=== PATIENT | male | born 1940 | race Caucasian/White ===

== ENCOUNTER 2019-05-28 12:07 | Outpatient (CLI) | payer MEDICARE, SELFPAY ==
--- NOTE | 2019-05-28 | XR_ITS ---
WS: [id number] CHEST 2 VIEWS HISTORY: IRREGULAR HEARTBEAT COMPARISON: None available. Lungs: Mild elevation of the RIGHT hemidiaphragm. There is minimal subsegmental atelectasis at the li ngula. Cardiac size: 2. Partially obscured by the atelectasis in the lingula. Mediastinum/Aorta: Mildly ectatic aorta. Bones: Normal. XR/XR chest 2V* [id number] IMPRESSION: 1. Lingular atelectasis. 2. Slight elevation RIGHT hemidiaphragm. No pneumonia.
== END 2019-05-28 12:08 | disposition home or self-care (01) ==
LOC: RADOUTREAD 05-29 07:34
PROVIDERS: Family Provider Family Medicine; Visit Provider Physician Assistant
DX: Z01.89 Encounter for other specified special examinations (principal)

== ENCOUNTER 2019-05-29 15:49 | Inpatient (IN) | payer MEDICARE, SELFPAY ==
--- NOTE | 2019-05-29 15:50 | CT_ITS ---
WS: [id number] CT HEAD TECHNIQUE: Noncontrast CT of the head obtained from the skullbase to the vertex. CLINICAL INFORMATION: Altered Mental Status COMPARISON: None. DLP: [address] scans at [facility] use at least one of these dose optimization techniques: automat ed exposure control; mA and/or kV adjustment per patient size (includes targeted exams where dose is matched to clinical indication); or iterative reconstruction. FINDINGS: No evidence of intracranial hemorrhage or mass effect. Ventricular system and basal cisterns are arellano nt. Mild small vessel changes with moderate parenchymal volume loss. Incidental right choroidal fissu re cyst. Chronic lacunar infarcts in the left basal ganglia. No extra-axial fluid collections. No jermaine dence of mass or mass effect. Normal kang-white differentiation. Paranasal sinuses and mastoid air cells are well aerated. .Normal visualized soft tissues. Notified Iban Ball DO at 05/29/2019 4:[address]/CT head wo con* [id number] IMPRESSION: 1. No evidence of intracranial hemorrhage or mass effect. 2. Mild small vessel changes with moderate parenchymal volume loss. 3. No acute intracranial findings.
--- NOTE | 2019-05-29 15:50 | ED_ITS ---
Entered by Aurelia Reilly, acting as scribe for Travis Laughlin MD HPI - Altered Mental Status General: Chief Complaint: Altered Mental Status Stated Complaint: AMS Time Seen by Provider: 05/29/19 15:51 History of Present Illness: HPI narrative: 78 yo male presents with altered mental status. pt has had this for 2 days. Pt had slurred speech off and on for 2 days. Pt states that he feels unusual for him. Per EMS pt is hypertensive. denies being sick in any other way. Pt just had a check up on Saturday at [facility]. complaint: altered mental status Onset (ago): day(s) (2) Severity: mild Consistency of symptoms: Waxing and Waning Associated symptoms: Deny depression Review of Systems Const: Denies: fever, chills, body aches or change in appetite Eyes: Denies: blurry vision or eye discomfort ENMT: Denies: throat pain or dental pain Card: Denies: chest pain Resp: Denies: shortness of breath GI: Denies: abdominal pain, nausea, vomiting or diarrhea : Denies: painful urination Musc: Denies: neck pain or back pain Skin/Breast: Denies: rash Neuro: Reports: weakness in extremities and slurred speech Psych: Denies: depression Martinez/Lymph: Denies: easy bruising All/Imm: Denies: hives PFSH ED PFSH: Medical History (Updated 05/29/19 @ 17:43 by Travis Laughlin MD) Cancer Gout Surgical History (Updated 05/29/19 @ 15:55 by Aurelia Reilly) H/O prostatectomy Hx of transurethral resection of prostate Social History Smoking and tobacco status: former smoker Physical Exam Const: COMMON NORMALS: no apparent distress, oriented x3 and healthy appearing HENMT: COMMON NORMALS: normocephalic and head/scalp atraumatic HEAD & SCALP: normocephalic and atraumatic Eye: COMMON NORMALS: PERRL and EOMs intact bilaterally PUPIL: Yes PERRL Neck/C-Spine: COMMON NORMALS: full ROM and supple Chest: COMMONS NORMALS: inspection of chest normal and palpation of chest normal Resp: COMMON NORMALS: normal respiratory effort, no retractions, no use of accessory muscles and clear to auscultation bilaterally AUSCULTATION: clear to auscultation bilaterally Cardio: COMMON NORMALS: regular rate, regular rhythm and no murmurs RATE: regular rate RHYTHM: regular rhythm GI: COMMON NORMALS: normal to inspection, nondistended, normoactive bowel sounds, soft to palpation, non-tender and no masses PALPATION: Yes soft Extremity: COMMON NORMALS: normal to inspection and full ROM Neuro: COMMON NORMALS: oriented x3, moves all extremities and no focal motor deficits Psych: COMMON NORMALS: mental status grossly normal, thought process normal and cooperative THOUGHT PROCESS: normal thought process Skin: COMMON NORMALS: no rashes or lesions noted and no wounds GENERAL SKIN EXAM: no rashes or lesions noted Course Vital Signs: Vital signs: Vital Signs Temperature 98.0 F 05/29/19 15:51 Pulse Rate 55 L 05/29/19 15:51 Respiratory Rate 16 05/29/19 15:51 Blood Pressure 184/98 05/29/19 15:51 Pulse Oximetry 97 05/29/19 16:03 MDM - Altered Mental Status MDM Narrative: Medical decision making narrative: Patient presents here with TIA-like symptoms. He has had slurred speech along with weakness that is been intermittent for the last 2 to 3 days. Patient is currently symptom-free and is not a TPA candidate. I spoke to hospitalist and will admit for observation. Lab Data: Labs: Lab Results 05/29/19 05/29/19 05/29/19 Range/Units 16:25 16:25 16:25 WBC 9.2 (4.0-10.0) 10^3/ uL RBC 5.09 (4.1-5.3) 10^6/u L Hgb 15.2 (11.7-16.6) g/dL Hct 47.2 (42.0-52.0) % MCV 92.7 (80-94) fL MCH 29.9 (28.0-34.0) pg MCHC 32.2 (30.0-36.0) g/dL RDW 12.2 (12.1-15.1) % Plt Count 307 (130-400) 10^3/c mm MPV 9.4 (7.4-10.4) fL Neut % (Auto) 73.3 % Lymph % (Auto) 13.8 % Meade % (Auto) 9.7 % Eos % (Auto) 2.1 % Baso % (Auto) 0.7 % Neut # (Auto) 6.8 (1.8-7.7) 10^3/u L Lymph # (Auto) 1.3 (0.8-4.8) 10^3/u L Meade # (Auto) 0.9 (0.2-0.9) 10^3/u L Eos # (Auto) 0.2 (0.0-0.8) 10^3/u L Baso # (Auto) 0.1 (0.0-0.1) 10^3/u L Nucleated RBC % (a uto) 0 % Nucleated RBCs # 0.0 /100WBC PT 13.90 H (10.5-13.3) SECO NDS INR 1.04 (0.8-1.2) Sodium 137 (136-145) mmol/L Potassium 4.3 (3.5-5.1) mmol/L Chloride 100 (98-107) mmol/L Carbon Dioxide 27 (22-29) mmol/L Anion Gap 14.3 (5-19) BUN 18 (8-23) mg/dL Creatinine 1.2 (0.7-1.2) mg/dL Glucose 108 (65-115) mg/dL Calcium 9.8 (8.5-10.5) mg/dL Total Bilirubin 0.3 (0.15-1.2) mg/dL AST 27 (0-40) U/L ALT 40 (0-41) U/L Alkaline Phosphata se 97 (40-130) IU/L Ammonia (16-60) umol/L Troponin T Baselin e (0-15) ng/mL Total Protein 6.4 L (6.6-8.7) g/dL Albumin 4.2 (3.5-5.2) g/dL Globulin 2.2 (1.3-4.6) g/dL TSH 3.85 (0.27-4.20) uIU/ mL Urine Color (Yellow) Urine Appearance (CLEAR) Urine pH (5-7) Ur Specific Gravit y (1.005-1.030) Urine Protein (Negative) Urine Glucose (UA) (Normal) Urine Ketones (Negative) Urine Blood (Negative) Urine Nitrate (Negative) Urine Bilirubin (NEGATIVE) Urine Urobilinogen (Negative) mg/dL Ur Leukocyte Darling ase (Negative) Urine RBC (0-2) /hpf Urine WBC (0-5) /hpf Ur Squamous Epith Cells (0-5) Urine Bacteria (NONE) 05/29/19 05/29/19 05/29/19 Range/Units 16:25 16:25 17:04 WBC (4.0-10.0) 10^3/ uL RBC (4.1-5.3) 10^6/u L Hgb (11.7-16.6) g/dL Hct (42.0-52.0) % MCV (80-94) fL MCH (28.0-34.0) pg MCHC (30.0-36.0) g/dL RDW (12.1-15.1) % Plt Count (130-400) 10^3/c mm MPV (7.4-10.4) fL Neut % (Auto) % Lymph % (Auto) % Meade % (Auto) % Eos % (Auto) % Baso % (Auto) % Neut # (Auto) (1.8-7.7) 10^3/u L Lymph # (Auto) (0.8-4.8) 10^3/u L Meade # (Auto) (0.2-0.9) 10^3/u L Eos # (Auto) (0.0-0.8) 10^3/u L Baso # (Auto) (0.0-0.1) 10^3/u L Nucleated RBC % (a uto) % Nucleated RBCs # /100WBC PT (10.5-13.3) SECO NDS INR (0.8-1.2) Sodium (136-145) mmol/L Potassium (3.5-5.1) mmol/L Chloride (98-107) mmol/L Carbon Dioxide (22-29) mmol/L Anion Gap (5-19) BUN (8-23) mg/dL Creatinine (0.7-1.2) mg/dL Glucose (65-115) mg/dL Calcium (8.5-10.5) mg/dL Total Bilirubin (0.15-1.2) mg/dL AST (0-40) U/L ALT (0-41) U/L Alkaline Phosphata se (40-130) IU/L Ammonia 16 (16-60) umol/L Troponin T Baselin e 9 (0-15) ng/mL Total Protein (6.6-8.7) g/dL Albumin (3.5-5.2) g/dL Globulin (1.3-4.6) g/dL TSH (0.27-4.20) uIU/ mL Urine Color Yellow (Yellow) Urine Appearance Clear (CLEAR) Urine pH 6 (5-7) Ur Specific Gravit y 1.015 (1.005-1.030) Urine Protein Neg (Negative) Urine Glucose (UA) Norm (Normal) Urine Ketones Negative (Negative) Urine Blood Trace H (Negative) Urine Nitrate Negative (Negative) Urine Bilirubin Neg (NEGATIVE) Urine Urobilinogen Norm (Negative) mg/dL Ur Leukocyte Darling ase Negative (Negative) Urine RBC 0-4 H (0-2) /hpf Urine WBC None (0-5) /hpf Ur Squamous Epith Cells 0-4 H (0-5) Urine Bacteria Trace (NONE) Imaging Data^: CXR: Attestation: I personally reviewed and interpreted this imaging study as follows: My impression: no acute abnormality CT Head: Radiologist's impression: Ordering Provider/Ordering MD: Iban Ball DO Date of Service: 05/29/19 Procedure(s): CT head wo con* [id number] Accession Number(s): [id number] Report Number: [id number] WS: [id number] CT HEAD TECHNIQUE: Noncontrast CT of the head obtained from the skullbase to the vertex. CLINICAL INFORMATION: Altered Mental Status COMPARISON: None. DLP: [address] scans at [facility] use at least one of these dose optimization techniques: automated exposure control; mA and/or kV adjustment per patient size (includes targeted exams where dose is matched to clinical indication); or iterative reconstruction. FINDINGS: No evidence of intracranial hemorrhage or mass effect. Ventricular system and basal cisterns are patent. Mild small vessel changes with moderate parenchymal volume loss. Incidental right choroidal fissure cyst. Chronic lacunar infarcts in the left basal ganglia. No extra-axial fluid collections. No evidence of mass or mass effect. Normal kang-white differentiation. Paranasal sinuses and mastoid air cells are well aerated. .Normal visualized soft tissues. Notified Iban Ball DO at 05/29/2019 4:[address]/CT head wo con* [id number] IMPRESSION: 1. No evidence of intracranial hemorrhage or mass effect. 2. Mild small vessel changes with moderate parenchymal volume loss. 3. No acute intracranial findings. EKG Data^: EKG 1: EKG interpretation date: 05/29/19 EKG interpretation time: 17:40 Interpretation: sinus martina hr [address] or t wave abnormalities qrs 90 qtc 389 Discharge Plan Discharge Patient Disposition: Admitted As Inpatient Clinical Impression: TIA (transient ischemic attack) Condition: Stable Referrals: Iban Ball DO [Family Provider] - Cristina Vann PA [Primary Care Provider] - Coding Level of Care Code ED Residence Counselor for Chg Fwd Exam Comprehensive The documentation recorded by the Tommie briceno Kialy, accurately reflects the service I personally performed and the decisions made by Truman dockery Korby, MD May 29, 2019 15:49
[2019-05-29 15:51] VITALS: BP 184/98; PULSE 55; RESP 16; TEMP 36.7; O2SAT 97; BMI 29.0
--- NOTE | 2019-05-29 15:58 | XR_ITS ---
WS: [id number] XR chest 1V portable [id number] REASON FOR EXAM: cp FINDINGS: Borderline cardiomegaly is noted. There is degenerative spurring off the apophyseal joints throughout the thoracic spine. No rib fractures are identified. The lung brown are well aerated. No pneumonia, pleural effusion, pulmonary edema, or pneumothorax. The hilum and apices are normal. No other osseous abnormalities were seen. XR/XR chest 1V portable [id number] IMPRESSION: Negative chest for active cardiopulmonary changes
--- NOTE | 2019-05-29 15:59 | ECG_ITS ---
Measurements Intervals [place] Rate: 50 P: 35 NE: 179 QRS: 67 QRSD: 90 T: 67 QT: 414 QTc: 381 SINUS BRADYCARDIA LOW QRS VOLTAGE IN PRECORDIAL LEADS [QRS DEFLECTION < 1.0 mV IN CHEST LEADS] No previous ECG available for comparison Electronically Signed On 05-30-2019 14:09:38 COLLOID MILL OPERATOR by Gladys Foley M.D. [id number] f
[2019-05-29 16:03] VITALS: O2SAT 97
[2019-05-29 16:31] LABS: Basophils # 0.1 10^3/uL (0.0-0.1); Basophils % 0.7 %; Eosinophils # 0.2 10^3/uL (0.0-0.8); Eosinophils % 2.1 %; Hematocrit 47.2 % (42.0-52.0); Hemoglobin 15.2 g/dL (11.7-16.6); Lymphocytes # 1.3 10^3/uL (0.8-4.8); Lymphocytes % 13.8 %; Mean Corpuscular HGB Conc 32.2 g/dL (30.0-36.0); Mean Corpuscular Hemoglobin 29.9 pg (28.0-34.0); Mean Corpuscular Volume 92.7 fL (80-94); Mean Platelet Volume 9.4 fL (7.4-10.4); Monocytes # 0.9 10^3/uL (0.2-0.9); Monocytes % 9.7 %; Neutrophils # 6.8 10^3/uL (1.8-7.7); Neutrophils % 73.3 %; Nucleated Red Blood Cells % 0 %; Platelet Count 307 10^3/cmm (130-400); Red Blood Count 5.09 10^6/uL (4.1-5.3); Red Cell Distribution Width 12.2 % (12.1-15.1); White Blood Count 9.2 10^3/uL (4.0-10.0)
[2019-05-29 16:41] LABS: INR 1.04 (0.8-1.2)
[2019-05-29 16:45] LABS: Ammonia 16 umol/L (16-60)
[2019-05-29 16:55] LABS: Troponin(5th) Baseline 9 ng/mL (0-15)
[2019-05-29 17:03] LABS: Alanine Aminotransferase 40 U/L (0-41); Albumin Level 4.2 g/dL (3.5-5.2); Alkaline Phosphatase 97 IU/L (40-130); Anion Gap 14.3 (5-19); Aspartate Amino Transferase 27 U/L (0-40); Blood Urea Nitrogen 18 mg/dL (8-23); Calcium 9.8 mg/dL (8.5-10.5); Carbon Dioxide 27 mmol/L (22-29); Chloride 100 mmol/L (98-107); Globulin 2.2 g/dL (1.3-4.6); Glucose 108 mg/dL (65-115); Potassium 4.3 mmol/L (3.5-5.1); Sodium 137 mmol/L (136-145); Thyroid Stimulating Hormone 3.85 uIU/mL (0.27-4.20); Total Bilirubin 0.3 mg/dL (0.15-1.2); Total Protein 6.4 g/dL (6.6-8.7)
[2019-05-29] MEDS: sodium chloride 0.9% 1,000 ML 999 ML IV (17:03)
[2019-05-29 17:24] LABS: Add Urine Microscopic? YES; Bilirubin Urine Neg (NEGATIVE); Blood Urine Trace (Negative); Glucose Urine UA Norm (Normal); Ketones Urine Negative (Negative); Leukocyte Esterase Urine Negative (Negative); Nitrate Urine Negative (Negative); Protein Urine Neg (Negative); Specific Gravity, Urine 1.015 (1.005-1.030); Urine Appearance Clear (CLEAR); Urine Color Yellow (Yellow); Urobilinogen Urine Norm (Negative); pH Urine 6 (5-7)
--- NOTE | 2019-05-29 17:24 | ECG_ITS ---
Measurements Intervals [place] Rate: 55 P: 41 NE: 192 QRS: 66 QRSD: 86 T: 67 QT: 390 QTc: 374 SINUS BRADYCARDIA LOW QRS VOLTAGE IN PRECORDIAL LEADS [QRS DEFLECTION < 1.0 mV IN CHEST LEADS] SEPTAL MYOCARDIAL INFARCTION , PROBABLY OLD [40+ ms Q WAVE IN V1/V2] No previous ECG available for comparison Electronically Signed On 05-30-2019 14:09:25 PLYWOOD FACTORY WORKER by Gladys Foley M.D. [id number] f
[2019-05-29 17:29] LABS: Add Urine Culture? No; Bacteria Urine TRACE; RBC Urine 0-4 /hpf (0-2); Squamous Epithelial Cell Urine 0-4 (0-5)
[2019-05-29] MEDS: aspirin 81 mg Chew Tablet PO (17:40)
--- NOTE | 2019-05-29 18:14 | PC.NURSE ---
RN UNAVAILABLE FOR REPORT, NURSE TO CALL BACK.
[2019-05-29 18:33] VITALS: BP 170/87; PULSE 54; RESP 14; O2SAT 99
--- NOTE | 2019-05-29 18:44 | P.HP_ITS ---
Providers/Chief Complaint Admitting Physician: Georgie Pretty MD Primary Care Provider: Cristina Vann Chief Complaint: AMS History of Present Illness Josr Kaye is a 78 year old male with PMHx of Prostate cancer s/p radical prostactetomy, HTN, Gout; presents from home accompanied by his for evaluation of ongoing slurred speech, difficulty with ambulation, dizziness and confusion for the past several days. Patient states that on Saturday while attempting to get out of bed he had what sounds like a syncopal episode where he passed out for an unknown period of time. Episode was unwitnessed the was present in the house at the same time. He thinks he may have hit his head on the hamper on his way down. Shortly thereafter noticed that he has had difficulty getting his thoughts together, remembering things, ambulating, with intermittently slurred speech. His baseline is alert and oriented x3, very active, recently drove to and from [place] within a 24-hour period, had [place] [employer] dinner celebration with his last week Saturday, plays music 3 times a week, rides a motorcycle, hunts, is generally very active. Over the course of the past several days this has significantly diminished. He is quite conscientious about his grooming and hygiene but over the past 2 to 3 days has declined even taking a shower. His states that she has taken him to see his primary care provider at least twice over the past week and he has had some lab work done including tick panel all of which are pending. He reportedly has a history of chronic bradycardia with his baseline heart rate in the 50s. He has never had a prior syncopal episode. He has a known history of gout and takes allopurinol, otherwise does not take any other medications. mentions a history of borderline hypertension and high cholesterol none of which he takes medications for. is present at bedside during my assessment and provides much of the history as the patient is alert and oriented he is unable to remember details or get his words together as he intends to. He is quite hard of hearing at baseline and wears hearing aids but states that this has worsened over the past 24 to 48 hours. Other than the one syncopal episode mentioned above he has not had any others. He denies having any chest pain, cough, fever/chills, nausea/vomiting, abdominal pain, difficulty with urination or bowel movements, blood in his urine or his stool. Prior to the fall on Saturday he was in his usual state of health. He did have the cat scratch him on the left upper extremity though this seems to have healed, occurred approximately a week ago. He has not had any prior issues with his memory. Work-up in the ER so far has been unremarkable including normal CBC, normal chemistry, negative urinalysis, negative chest x-ray, negative CT head. Blood pressure is slightly elevated, most recent is 170/87, heart rate is 54, sinus rhythm, he is currently on room air, saturating at 99%, afebrile. It is unclear at this point what caused all of his symptoms though would need to rule out stroke at this point and further work-up syncope. Review of Systems Const: Reports: fatigue; Denies: fever, chills, change in appetite or diaphoresis Eyes: Denies: change in vision ENMT: Reports: change in hearing (increased difficulty with hearing today); Denies: painful swallowing, dry mouth, ear pain or ear discharge Card: Reports: syncope (on Saturday); Denies: chest pain, palpitations, irregular heart rhythm, edema, swelling of feet/ankles, lightheadedness, pre-syncope, shortness of breath on exertion, shortness of breath when lying down or leg pain with exertion Resp: Denies: shortness of breath, productive cough or wheezing GI: Denies: abdominal pain, nausea, vomiting, vomiting blood or blood in stool : Denies: difficulty urinating, painful urination or urinary frequency Musc: Denies: back pain Skin/Breast: Denies: rash Neuro: Reports: difficulty walking, dizziness, confusion, slurred speech, difficulty communicating thoughts and involuntary movements (RUE tremors); Denies: numbness in extremities, weakness in extremities or seizure-like activity Psych: Denies: anxiety Medications/Allergies Home Medications Medication Instructions Recorded Confirmed Last Taken Type allopurinol 100 mg PO DAILY 05/29/19 05/29/19 05/28/19 History Allergies Allergy/AdvReac Type Severity Reaction Status Date / Time No Known Allergies Allergy Unverified 05/29/19 16:42 PFSH Acute PFSH: Medical History Gout Hypertension Prostate cancer Surgical History H/O prostatectomy H/O rhinoplasty Hx of transurethral resection of prostate Family History (Updated 05/29/19 @ 19:01 by Georgie Pretty MD) Father ALS (amyotrophic lateral sclerosis) Sister Dementia Alzheimer's dementia Mother Cancer Breast cancer Other CAD (coronary artery disease) Social History (Updated 05/29/19 @ 19:01 by Georgie Pretty MD) Smoking and tobacco status: former smoker Quit status (tobacco): has quit using tobacco Year quit tobacco: quit in his 20s Alcohol intake: never Substance/Drug Use: never Household members: spouse Vitals/I&O/Wt Last Vital Signs Temp 98.0 F 05/29/19 15:51 Pulse 54 L 05/29/19 18:33 Resp 14 05/29/19 18:33 BP 170/87 05/29/19 18:33 Pulse Ox 99 05/29/19 18:33 Weight last 48 hrs Weight 97.069 kg Physical Exam Const: COMMON NORMALS: no apparent distress and oriented x3 GENERAL APPEARANCE: cooperative and comfortable; not in distress and not anxious NUTRITIONAL APPEARANCE: overweight ORIENTATION/CONSCIOUSNESS: Yes awake HENMT: COMMON NORMALS: normocephalic, head/scalp atraumatic, hearing grossly normal bilaterally and moist oral mucous membranes HEAD & SCALP: normocephalic and atraumatic Eye: COMMON NORMALS: PERRL, EOMs intact bilaterally and conjunctivae normal CONJUNCTIVA: Yes conjunctivae normal PUPIL: Yes PERRL Neck/C-Spine: COMMON NORMALS: full ROM GENERAL: Yes normal visual inspection and Yes trachea midline Chest: COMMONS NORMALS: inspection of chest normal Resp: COMMON NORMALS: normal respiratory effort, no retractions, no use of accessory muscles and clear to auscultation bilaterally EFFORT & INSPECTION: Yes able to speak in complete sentences, Yes symmetric chest movement and No tachypneic AUSCULTATION: clear to auscultation bilaterally Cardio: COMMON NORMALS: regular rate, regular rhythm, S1 normal heart sound, S2 normal heart sound and no murmurs RATE: regular rate RHYTHM: regular rhythm HEART SOUNDS: S1 normal and S2 normal GI: COMMON NORMALS: normal to inspection, nondistended, normoactive bowel sounds, soft to palpation and non-tender INSPECTION: Yes central obesity PALPATION: Yes soft Back/Pelvis: COMMON NORMALS: thoracic and lumbar spine normal to inspection and straight leg raise negative bilaterally Extremity: COMMON NORMALS: normal to inspection, full ROM and no clubbing, cyanosis or edema; negative for no pedal edema Neuro: COMMON NORMALS: oriented x3, moves all extremities, no focal motor deficits and no sensory deficits noted SENSORIUM/ORIENTATION: Yes alert COORDINATION/BALANCE: [id number] test normal and does not sway with eyes open SPEECH: speech normal GAIT: Yes other (stiff gait) SENSORY EXAM: No sensory level loss detected MOTOR EXAM: strength 5/5 throughout, no pronator drift, no asterixis, muscle tone normal throughout, tremor resting tremor right upper extremity and asterixis COORDINATION: [id number] test normal OTHER: -does have noted trouble finding his words and getting his thoughts together Psych: COMMON NORMALS: mental status grossly normal, thought process normal, cooperative, affect normal and speech normal SPEECH: Yes normal speech THOUGHT PROCESS: normal thought process Skin: COMMON NORMALS: no rashes or lesions noted, no jaundice, no petechiae and no mottling GENERAL SKIN EXAM: no rashes or lesions noted Data : 05/29/19 16:25 05/29/19 16:25 A&P Assessment and plan (1) Syncope and collapse: -patient had witnessed syncope episode on 05/23 while at home, was attempting to get out of bed when it occurred. Unsure how long he had passed out, may have struck his head on hamper. Shortly thereafter has noticed changes in his speech with intermittent slurring, difficulty getting his words together, confusion, difficulty with ambulation, increased difficulty with his hearing -Has not had prior syncopal episodes; does have chronic bradycardia with HRs in the 50s at baseline -Telemetry monitoring -Monitor vital signs; check orthostatics -Fall precautions -Initial concern for possible TIA though with persistence of his symptoms this seems unlikely -Cannot rule out stroke though with timeline and normal CT head this seems to be less of a possibility; presented outside TPA window -Order echo, CTA head and neck -Received a dose of aspirin, continue this and add statin -Risk stratify with TSH, A1c and lipid panel -seizure/aspiration precautions -PT/OT/ST evaluations -may need MRI for further workup if continued suspicion for CVA Status: Acute Code(s): R55 - Syncope and collapse (2) Hypertension: -has known hx of borderline HTN -monitor vital signs; higher threshold due to concern for possible CVA Status: Acute Qualifiers: Hypertension type: essential hypertension Qualified Code(s): I10 - Essential (primary) hypertension Code(s): I10 - Essential (primary) hypertension (3) Hyperlipidemia: -has known hx of high cholesterol though not on statins -check lipid panel Status: Acute Qualifiers: Hyperlipidemia type: unspecified Qualified Code(s): E78.5 - Hyperl ipidemia, unspecified Code(s): E78.5 - Hyperlipidemia, unspecified Additional A&P Information -Gout; has been on allopurinol -remote hx of prostate cancer s/p radical prostatectomy -DVT ppx with Lovenox -low salt diet as tolerated once passed dysphagia screening -Dispo: home -Code status: FULL code Attestations Medical Necessity Statement*: Josr Turner [facility]'s hospital stay will be less than 2 midnights for further workup of possible stroke given new onset confusion, difficulty ambulating, speech impairment as well as syncope. Time Spent in Patient Care: Greater than 35 minutes (>than 50% of time spent in counselling and/or direct pt care on unit) . Coding Level of Care Code Acute Operation Manager for Chg Fwd Diagnoses Syncope and collapse R55 Hypertension I10 Hypertension type: essential hypertension Hyperlipidemia E78.5 Hyperlipidemia type: unspecified
[2019-05-29 19:05] LABS: Troponin 5 2HR 8.13 ng/mL (0-15)
[2019-05-29 19:06] LABS: Troponin 5 2HR Delta -0.87 ABS# (0-10)
[2019-05-29 20:30] VITALS: BP 179/81; PULSE 55; RESP 19; TEMP 36.8; O2SAT 98
--- NOTE | 2019-05-29 20:30 | CTR_ITS ---
PROCEDURE INFORMATION: Exam: CT Angiography Head With Contrast Exam date and time: 05/29/2019 9:10 PM Age: 78 years old Clinical indication: Other: CVA; Additional info: CVA workup TECHNIQUE: Imaging protocol: Computed tomography angiography of the head with intravenous contrast. 3D rendering: MIP and/or 3D reconstructed images were created by the technologist. Total DLP: 2172.92 mGy-cm Radiation optimization: All CT scans at this facility use at least one of these dose optimization techniques: automated exposure control; mA and/or kV adjustment per patient size (includes targeted exams where dose is matched to clinical indication); or iterative reconstruction. Contrast material: VISI 320; Contrast volume: 95 ml; Contrast route: IV; COMPARISON: CT head wo con* [id number] 05/29/2019 4:00 PM FINDINGS: Right internal carotid artery: Unremarkable. Intracranial segment is patent with no significant stenosis. No aneurysm. Right anterior cerebral artery: Unremarkable. No occlusion or significant stenosis. No aneurysm. Right middle cerebral artery: Unremarkable. No occlusion or significant stenosis. No aneurysm. Right posterior cerebral artery: Unremarkable. No occlusion or significant stenosis. No aneurysm. Right vertebral artery: Unremarkable. No occlusion or significant stenosis. No aneurysm. Left internal carotid artery: Unremarkable. Intracranial segment is patent with no significant stenosis. No aneurysm. Left anterior cerebral artery: Unremarkable. No occlusion or significant stenosis. No aneurysm. Left middle cerebral artery: Unremarkable. No occlusion or significant stenosis. No aneurysm. Left posterior cerebral artery: Unremarkable. No occlusion or significant stenosis. No aneurysm. Left vertebral artery: Unremarkable. No occlusion or significant stenosis. No aneurysm. Basilar artery: Unremarkable. No occlusion or significant stenosis. No aneurysm. Other vasculature: There is wall thickening and change in caliber of bilateral vertebral arteries as they enter the intracranial circulation. There is moderate narrowing of bilateral internal carotid arteries in the cavernous portion. Multifocal mild to moderate stenosis of bilateral middle cerebral arteries in the M1 segments. IMPRESSION: 1. Wall thickening and change in caliber of bilateral vertebral arteries as they enter intracranial circulation. Findings suspicious for dissection. MRA with fat saturated images is suggested for complete evaluation. 2. Moderate stenosis of bilateral internal carotid arteries in the cavernous portion with noncalcified plaque. 3. Multifocal mild to moderate stenosis of bilateral middle cerebral arteries in the M1 segments. PROCEDURE INFORMATION: Exam: CT Angiography Neck With Contrast Exam date and time: 05/29/2019 9:10 PM Age: 78 years old Clinical indication: Other: CVA; Additional info: CVA workup TECHNIQUE: Imaging protocol: Computed tomography angiography of the neck with intravenous contrast. 3D rendering: MIP and/or 3D reconstructed images were created by the technologist. Total DLP: 2172.92 mGy-cm Radiation optimization: All CT scans at this facility use at least one of these dose optimization techniques: automated exposure control; mA and/or kV adjustment per patient size (includes targeted exams where dose is matched to clinical indication); or iterative reconstruction. Contrast material: VISI 320; Contrast volume: 95 ml; Contrast route: IV; COMPARISON: CT head wo con* [id number] 05/29/2019 4:00 PM FINDINGS: VASCULATURE: Right common carotid artery: Unremarkable. No stenosis. No dissection or occlusion. Right internal carotid artery: Unremarkable extracranial segment. No stenosis. No dissection or occlusion. Right external carotid artery: Unremarkable. No occlusion or stenosis of the origin. Right vertebral artery: Unremarkable. No stenosis. No dissection or occlusion. Left common carotid artery: Unremarkable. No stenosis. No dissection or occlusion. Left internal carotid artery: Unremarkable extracranial segment. No stenosis. No dissection or occlusion. Left external carotid artery: Unremarkable. No occlusion or stenosis of the origin. Left vertebral artery: Unremarkable. No stenosis. No dissection or occlusion. Other vasculature: There is wall thickening and change in caliber of bilateral vertebral arteries as they enter the intracranial circulation. NECK: Bones/joints: No acute fracture. Soft tissues: Normal. No significant soft tissue swelling. CT/CT angio headneck* [id number] IMPRESSION: Wall thickening and change of caliber in bilateral vertebral arteries as they enter the intracranial circulation. Findings suspicious for dissection. MRA with fat saturated images is suggested for complete evaluation. COMMENTS: Using NASCET method for measuring degree of carotid artery stenosis: Mild is less than 50% stenosis. Moderate is 50-69% stenosis. Severe is 70-94% stenosis. Near occlusion is 95-99% stenosis. Radiation Dose CTDIVOL = (mGy): DLP = 2172.92~2172.92 (mGy-cm)
[2019-05-29] MEDS: enoxaparin 40 mg/0.4 mL Syringe SUBCUT (21:15)
[2019-05-29] MEDS: atorvastatin 40 mg Tablet 20 MG PO (21:15)
[2019-05-29] MEDS: iodixanol 320 mg/mL 100mL Btl 95 ML IV (21:57)
[2019-05-29 21:59] LABS: Creatine Phosphokinase 38 U/L (39-308); Uric Acid 6.1 mg/dL (3.4-7.0)
[2019-05-29 22:24] VITALS: BP 163/73; PULSE 58
--- NOTE | 2019-05-29 23:03 | MRR_ITS ---
PROCEDURE INFORMATION: Exam: MR Angiogram Head Without Contrast, Arteries Exam date and time: 05/29/2019 11:41 PM Age: 78 years old Clinical indication: Injury or trauma; Fall; Initial encounter; Abrasion; Head; Additional info: Suspected vertebral artery dissection TECHNIQUE: Imaging protocol: MR angiogram head without contrast. Exam focused on the arteries. COMPARISON: CT angio headneck* [id number] 05/29/2019 10:07 PM FINDINGS: Right internal carotid artery: Intracranial segment is patent. No aneurysm. There is irregular narrowing of the carotid siphon estimated at 80% stenosis. Right anterior cerebral artery: Unremarkable. No occlusion or significant stenosis. No aneurysm. Right middle cerebral artery: Unremarkable. No occlusion or significant stenosis. No aneurysm. Right posterior cerebral artery: Unremarkable. No occlusion or significant stenosis. No aneurysm. Right vertebral artery: No aneurysm. There is severe irregular narrowing of the distal V3 segment and proximal V4 segment with apparent absence of flow and occlusion within the mid V4 segment. There is reconstitution of the distal V4 segment. Left internal carotid artery: Intracranial segment is patent. No aneurysm. There is irregular narrowing seen within the carotid siphon estimated at 80% stenosis. Left anterior cerebral artery: Unremarkable. No occlusion or significant stenosis. No aneurysm. Left middle cerebral artery: Unremarkable. No occlusion or significant stenosis. No aneurysm. Left posterior cerebral artery: Unremarkable. No occlusion or significant stenosis. No aneurysm. Left vertebral artery: No aneurysm. There is severe diffuse irregular narrowing of the distal V3 segment with absence of flow seen within the proximal V4 segment. There appears to be reconstitution of the mid and distal V4 segment. Basilar artery: Unremarkable. No occlusion or significant stenosis. No aneurysm. MR/MR angio head wo con [id number] IMPRESSION: 1. There is severe irregular narrowing of the distal V3 segments of the vertebral arteries bilaterally. 2. There is apparent occlusion of the mid V4 segment on the right with reconstitution of the distal V4 segment. 3. There is apparent occlusion of the proximal V4 segment on the left with reconstitution of the mid and distal V4 segment. 4. There is bilateral severe stenoses seen within the carotid siphons.
--- NOTE | 2019-05-29 23:03 | MRR_ITS ---
PROCEDURE INFORMATION: Exam: MR Angiography Neck Without Contrast Exam date and time: 05/29/2019 11:46 PM Age: 78 years old Clinical indication: Injury or trauma; Fall; Initial encounter; Abrasion; Head; Additional info: Vertebral artery dissection TECHNIQUE: Imaging protocol: Magnetic resonance angiography of the neck without contrast. 3D rendering: MIP and/or 3D reconstructed images were created by the technologist. COMPARISON: MR angio head wo con [id number] 05/30/2019 12:28 AM FINDINGS: Right common carotid artery: Unremarkable. No stenosis. No dissection or occlusion. Right internal carotid artery: Unremarkable extracranial segment. No stenosis. No dissection or occlusion. Right external carotid artery: Unremarkable. No stenosis. No dissection or occlusion of the origin. Right vertebral artery: There is severe attenuation of the V3 and V4 segments of the right vertebral artery. Left common carotid artery: Unremarkable. No stenosis. No dissection or occlusion. Left internal carotid artery: Unremarkable extracranial segment. No stenosis. No dissection or occlusion. Left external carotid artery: Unremarkable. No stenosis. No dissection or occlusion of the origin. Left vertebral artery: There is severe attenuation of the V3 and V4 segments of the left vertebral artery. MR/MR angio neck con [id number] IMPRESSION: Severe attenuation of the caliber of the V3 and V4 segments of the vertebral arteries bilaterally. COMMENTS: Using NASCET method for measuring degree of carotid artery stenosis: Mild is less than 50% stenosis. Moderate is 50-69% stenosis. Severe is 70-94% stenosis. Near occlusion is 95-99% stenosis.
--- NOTE | 2019-05-29 23:04 | PM.EVENT ---
Event Note Event Note: Called by [facility] to report findings on CTA head and neck as follows : wall thickening and change of caliber in bilateral vertebral arteries as they enter the intracranial circulation. Findings suspicious for dissection. Per discussion with radiologist, findings may represent dissection vs atherosclerotic disease. Recommended MRA to obtain further information. MRA of the head and neck was then performed which showed severe irregular narrowing of the distal V3 segment of the vertebral arteries bilaterally. There is apparent occlusion of the mid V4 segment on the right with reconstitution of the distal V4 segment. Aberrant occlusion of the proximal V4 segment on the left with reconstitution of the mid and distal V4 segment. Bilateral severe stenosis seen within the carotid siphons. On the CTA there was also noted to be multifocal mild to moderate stenosis of the bilateral middle cerebral arteries and the M1 segments. 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 It was recommended to continue aspirin 81 mg and also add Plavix 75 mg given intracranial atherosclerosis. It was recommended to continue DAPT with aspirin and Plavix over the next 90 days. Thereafter Plavix could be taken off and aspirin 325 mg could continue. Other recommendations included to control blood pressure as permissive hypertension is no longer needed. Currently patient's blood pressure is 156/70, down from 184/98 without any specific interventions. According to his at bedside his usual range is 140/90. A nonemergent MRI of the head was also recommended and will be ordered. Event Notes Attestations Time Spent in Patient Care: Greater than 35 minutes
[2019-05-29 23:33] LABS: Troponin 5 6HR 10.45 ng/mL (0-15); Troponin 5 6HR Delta 1.45 ng/L (0-12)
[2019-05-30] VITALS (7 sets, daily range): BP systolic 121–156; BP diastolic 67–82; PULSE 58–85; RESP 17–20; TEMP 36.6–37; O2SAT 94–96
[2019-05-30 05:41] LABS: Basophils % 0.4 %; Eosinophils # 0.2 10^3/uL (0.0-0.8); Eosinophils % 1.9 %; Hematocrit 47.6 % (42.0-52.0); Hemoglobin 14.7 g/dL (11.7-16.6); Lymphocytes # 1.1 10^3/uL (0.8-4.8); Lymphocytes % 11.7 %; Mean Corpuscular HGB Conc 30.9 g/dL (30.0-36.0); Mean Corpuscular Hemoglobin 29.5 pg (28.0-34.0); Mean Corpuscular Volume 95.6 fL (80-94); Mean Platelet Volume 9.6 fL (7.4-10.4); Monocytes # 0.9 10^3/uL (0.2-0.9); Monocytes % 9.7 %; Neutrophils # 7.2 10^3/uL (1.8-7.7); Neutrophils % 75.9 %; Nucleated Red Blood Cells % 0 %; Platelet Count 280 10^3/cmm (130-400); Red Blood Count 4.98 10^6/uL (4.1-5.3); Red Cell Distribution Width 12.4 % (12.1-15.1); White Blood Count 9.6 10^3/uL (4.0-10.0)
[2019-05-30 05:51] LABS: Estmated Average Glucose 137; Hemoglobin A1C 6.4 % (4.0-6.0)
[2019-05-30 06:02] LABS: Chol HDL Ratio 5.33 mg/dL (1.0-5.00); Cholesterol 192 mg/dL (0-200); HDL Cholesterol 36 mg/dL (60-100); LDL Cholesterol Calculated 120 mg/dL (50-129); LDL HDL Ratio 3.33 RATIO (0.00-3.22); Triglycerides 181 mg/dL (0-150)
[2019-05-30 06:15] LABS: Anion Gap 18.2 (5-19); Blood Urea Nitrogen 17 mg/dL (8-23); Calcium 9.9 mg/dL (8.5-10.5); Carbon Dioxide 23 mmol/L (22-29); Chloride 98 mmol/L (98-107); Glucose 119 mg/dL (65-115); Osmolality Calculated 278 mOsm/kg (285-295); Potassium 4.2 mmol/L (3.5-5.1); Sodium 135 mmol/L (136-145); Thyroid Stimulating Hormone 3.66 uIU/mL (0.27-4.20)
[2019-05-30] MEDS: clopidogrel 75 mg Tablet PO (06:37)
[2019-05-30] MEDS: aspirin 81 mg Chew Tablet PO (08:17)
--- NOTE | 2019-05-30 10:00 | USCV_ITS ---
Josr Kaye Age: 78 Gender: M : 1940 Exam Date: 05/30/2019 09:40 Ordering Phys: Georgie Pretty MD Technologist: Mallory Gonzalez [place]am [place] [facility] [place]ication: STROKE WORKUP BP: 149 / 70 HR: 60 Rhythm: Sinus Technical Quality: Adequate MEASUREMENTS (Male / Female) Normal Values 2D ECHO LV Diastolic Diameter PLAX 3.3 cm 4.2 - 5.9 / 3.9 - 5.3 cm LV Systolic Diameter PLAX 2.5 cm LV Chamber Size 2.7 cm IVS Diastolic Thickness 1.2 cm 0.6 - 1.0 / 0.6 - 0.9 cm IVS Systolic Thickness 1.2 cm LVPW Diastolic Thickness 2.1 cm 0.6 - 1.0 / 0.6 - 0.9 cm LVPW Systolic Thickness 2.4 cm RV Chamber Size 3.0 cm LVOT Diameter 2.0 cm LV Ejection Fraction 2D Teich 50.6 % LV Ejection Fraction MOD 2C 76.2 % LV Ejection Fraction 2C AL 76.3 % LA Diameter 4.3 cm LA Width 4.0 cm LA Height 4.1 cm RA Width 3.4 cm RA Height 3.0 cm Aorta at Sinotubular Diameter 2.2 cm M-MODE LV Diastolic Diameter MM 6.3 cm 4.2 - 5.9 / 3.9 - 5.3 cm LV Systolic Diameter MM 4.6 cm LV Ejection Fraction MM Teich 53.4 % IVS Diastolic Thickness MM 0.7 cm 0.6 - 1.0 / 0.6 - 0.9 cm IVS Systolic Thickness MM 1.3 cm LVPW Diastolic Thickness MM 0.7 cm 0.6 - 1.0 / 0.6 - 0.9 cm LVPW Systolic Thickness MM 1.3 cm Aortic Annulus Diameter 2.8 cm LA Ao Ratio MM 1.5 MV E Point Septal Separation 0.9 cm DOPPLER AV Peak Velocity 149.0 cm/s LVOT Peak Velocity 95.0 cm/s AV Area Cont Eq vti 2.3 cm squared AV Area Cont Eq pk 2.1 cm squared MV Area PHT 2.5 cm squared Mitral E to A Ratio 0.8 MV E' Velocity 11.0 cm/s Mitral E to MV E' Ratio 6.7 Mitral E to LV E' Lateral Ratio 7.3 Mitral E to LV E' Septal Ratio 6.2 TR Peak Velocity 176.0 cm/s TR Peak Gradient 12.4 mmHg TV Peak E Velocity 61.0 cm/s Right Atrial Pressure 3.0 mmHg Pulmonary Artery Systolic Pressu 15.4 mmHg PV Peak Velocity 99.0 cm/s RV Acceleration Time 0.1 s RV Ejection Time 0.4 s RV AcT/ET 0.3 FINDINGS Left Ventricle Normal left ventricular cavity size. Normal left ventricular systolic function. Left ventricular ejection fraction is estimated at 55 %. No diagnostic regional wall motion abnormalities. Normal diastolic function. Right Ventricle Normal right ventricular size and systolic function. Right Atrium Normal right atrial size. Left Atrium Left atrium not well visualized. Mitral Valve Mildly thickened mitral valve. Aortic Valve Aortic valve not well visualized. No aortic valve stenosis. Tricuspid Valve Tricuspid valve not well visualized. Pulmonic Valve Pulmonic valve not well visualized. Pericardium No pericardial effusion. Prominent epicardial fat. Aorta Normal size aortic root. CONCLUSIONS 1. Normal left ventricular cavity size. Normal left ventricular systolic function. Left ventricular ejection fraction is estimated at 55 %. No diagnostic regional wall motion abnormalities. Normal diastolic function. 2. Normal right ventricular size and systolic function. 3. No prior similar studies to compare. Gladys Foely MD (Electronically Signed) Final Date: 30 May 2019 18:51 S
--- NOTE | 2019-05-30 17:12 | PM.PN ---
Subjective Subjective: Interval history: Patient seen and examined, seen ambulating in hallway earlier this morning, is in very good spirits, is having an easier time expressing himself today though still has some difficulty with word finding and processing information such as knowing how to take his medications. Did well with physical and occupational therapy. Noted deficits with speech therapy. Echo report pending. at bedside, updated accordingly. She thinks that her is doing better today. Medications: Reviewed: Yes Medication Review Details: Active Medications Generic Name Dose Route Start Last Admin Trade Name Freq PRN Reason Stop Dose Admin Acetaminophen 650 mg 05/29/19 20:30 Tylenol PO Q6H PRN Mild/Mod Pain Or Temp >/= 101 Aspirin 81 mg 05/30/19 09:00 05/30/19 08:17 Aspirin Chewable PO 81 mg DAILY FILI Administration Atorvastatin Calci um 20 mg 05/29/19 21:00 05/29/19 21:15 Lipitor PO 20 mg BEDTIME FILI Administration Clopidogrel Bisulf ate 75 mg 05/30/19 03:50 05/30/19 06:37 Plavix PO 75 mg DAILY FILI Administration Enoxaparin Sodium 40 mg 05/29/19 20:30 05/29/19 21:15 Lovenox SUBCUT 40 mg Q24H FILI Administration Hydralazine HCl 10 mg 05/29/19 20:30 Apresoline IVP Q4H PRN DIASTOLIC BLOOD P RESSURE Hydralazine HCl 5 mg 05/30/19 03:50 Apresoline IVP Q4H PRN SBP > 170 Morphine Sulfate 2 mg 05/29/19 20:30 Morphine IVP Q4H PRN SEVERE PAIN No Known Allergies Allergy (Unverified 05/29/19 16:42) Vitals/I&O/Wt Last Vital Signs Temp 97.9 F 05/30/19 16:00 Pulse 65 05/30/19 16:00 Resp 20 H 05/30/19 16:00 BP 137/74 05/30/19 16:00 Pulse Ox 96 05/30/19 16:00 05/30/19 05/30/19 05/30/19 06:59 14:59 22:59 Intake Total 120 / 120 Balance 120 / 120 Weight last 48 hrs Weight 98.021 kg Weight 97.069 kg Physical Exam Const: COMMON NORMALS: no apparent distress, oriented x3 and alert GENERAL APPEARANCE: cooperative and comfortable; not in distress and not anxious NUTRITIONAL APPEARANCE: overweight ORIENTATION/CONSCIOUSNESS: Yes awake HENMT: COMMON NORMALS: normocephalic, head/scalp atraumatic and moist oral mucous membranes HEAD & SCALP: normocephalic and atraumatic GENERAL EAR: hearing grossly impaired Eye: COMMON NORMALS: PERRL, EOMs intact bilaterally and conjunctivae normal CONJUNCTIVA: Yes conjunctivae normal PUPIL: Yes PERRL Neck/C-Spine: COMMON NORMALS: full ROM GENERAL: Yes normal visual inspection and Yes trachea midline Chest: COMMONS NORMALS: inspection of chest normal Resp: COMMON NORMALS: normal respiratory effort, no retractions, no use of accessory muscles and clear to auscultation bilaterally EFFORT & INSPECTION: Yes able to speak in complete sentences, Yes symmetric chest movement and No tachypneic AUSCULTATION: clear to auscultation bilaterally Cardio: COMMON NORMALS: regular rate, regular rhythm, S1 normal heart sound, S2 normal heart sound and no murmurs RATE: regular rate RHYTHM: regular rhythm HEART SOUNDS: S1 normal and S2 normal GI: COMMON NORMALS: normal to inspection, nondistended, normoactive bowel sounds, soft to palpation and non-tender INSPECTION: Yes central obesity PALPATION: Yes soft Back/Pelvis: COMMON NORMALS: thoracic and lumbar spine normal to inspection and straight leg raise negative bilaterally Extremity: COMMON NORMALS: normal to inspection, full ROM and no clubbing, cyanosis or edema; negative for no pedal edema Neuro: COMMON NORMALS: oriented x3, moves all extremities, no focal motor deficits and no sensory deficits noted SENSORIUM/ORIENTATION: Yes alert COORDINATION/BALANCE: [id number] test normal and does not sway with eyes open SPEECH: speech normal GAIT: Yes other (stiff gait) SENSORY EXAM: No sensory level loss detected MOTOR EXAM: strength 5/5 throughout, no pronator drift, no asterixis, muscle tone normal throughout, tremor resting tremor and asterixis COORDINATION: [id number] test normal and does not sway with eyes open OTHER: -does have noted trouble finding his words and getting his thoughts together Psych: COMMON NORMALS: mental status grossly normal, thought process normal, cooperative, affect normal and speech normal SPEECH: Yes normal speech THOUGHT PROCESS: normal thought process Skin: COMMON NORMALS: no rashes or lesions noted, no jaundice, no petechiae and no mottling GENERAL SKIN EXAM: no rashes or lesions noted Data : 05/30/19 05:22 05/30/19 05:22 A&P Assessment and plan (1) Syncope and collapse: -patient had witnessed syncope episode on 05/23 while at home, was attempting to get out of bed when it occurred. Unsure how long he had passed out, may have struck his head on hamper. Shortly thereafter has noticed changes in his speech with intermittent slurring, difficulty getting his words together, confusion, difficulty with ambulation, increased difficulty with his hearing -Has not had prior syncopal episodes; does have chronic bradycardia with HRs in the 50s at baseline -Telemetry monitoring -Monitor vital signs; check orthostatics -Fall precautions -Initial concern for possible TIA though with persistence of his symptoms this seems unlikely -Cannot rule out stroke though with timeline and normal CT head this seems to be less of a possibility; presented outside [facility] window -Echo pending -CTA head and neck showing finding suspicious for vertebral artery dissection moderate stenosis of bilateral ICA, multifocal mild to moderate stenosis of bilateral MCA in the M1 segments -Had MRA of the head and neck done showing severe attenuation of the vertebral arteries bilaterally, no dissection -Continue aspirin, statin, plavix added per [facility] recommendations -Noted TSH, A1c and lipid panel -seizure/aspiration precautions -PT/OT/ST evaluations appreciated -may need MRI for further workup if continued suspicion for CVA Status: Acute Code(s): R55 - Syncope and collapse (2) Hypertension: -has known hx of borderline HTN -VSS; continue to monitor Status: Acute Qualifiers: Hypertension type: essential hypertension Qualified Code(s): I10 - Essential (primary) hypertension Code(s): I10 - Essential (primary) hypertension (3) Hyperlipidemia: -has known hx of high cholesterol though not on statins -lipid panel; on statin Status: Acute Qualifiers: Hyperlipidemia type: unspecified Qualified Code(s): E78.5 - Hyperlipidemia, unspecified Code(s): E78.5 - Hyperlipidemia, unspecified Additional A&P Information -Gout; has been on allopurinol -remote hx of prostate cancer s/p radical prostatectomy -DVT ppx with Lovenox -low salt diet as tolerated once passed dysphagia screening -Dispo: home -Code status: FULL code -change to inpatient status due to need for completion of workup Attestations Medical Necessity Statement*: Patient requires hospitalization for continued workup of noted significant bilateral carotid artery stenosis. Time Spent in Patient Care: Greater than 35 minutes (>than 50% of time spent in counselling and/or direct pt care on unit). Coding Level of Care Code Acute Rehabilitation Counsellor for [facility] Diagnoses Syncope and collapse R55 Hypertension I10 Hypertension type: essential hypertension Hyperlipidemia E78.5 Hyperlipidemia type: unspecified
[2019-05-30] MEDS: enoxaparin 40 mg/0.4 mL Syringe SUBCUT (20:08)
[2019-05-30] MEDS: atorvastatin 40 mg Tablet 20 MG PO (20:13)
[2019-05-31 04:00] VITALS: BP 136/75; PULSE 67; RESP 18; TEMP 36.9; O2SAT 94
[2019-05-31 08:00] VITALS: BP 146/79; PULSE 57; RESP 18; TEMP 36.7; O2SAT 96
--- NOTE | 2019-05-31 08:40 | PM.DCS ---
Discharge Providers Date of Admission: 05/30/19 17:10 Date of Discharge: May 31, 2019 Attending Provider at Admission: Georgie Pretty MD Attending Provider at Discharge: Georgie Pretty MD Primary Care Provider: Cristina Vann Diagnoses at Discharge Discharge Diagnosis (1) Syncope and collapse: Status: Acute Problem details: -patient had witnessed syncope episode on 05/23 while at home, was attempting to get out of bed when it occurred. Unsure how long he had passed out, may have struck his head on hamper. Shortly thereafter has noticed changes in his speech with intermittent slurring, difficulty getting his words together, confusion, difficulty with ambulation, increased difficulty with his hearing -Has not had prior syncopal episodes; does have chronic bradycardia with HRs in the 50s at baseline -Telemetry monitoring -Monitor vital signs; check orthostatics -Fall precautions -Initial concern for possible TIA though with persistence of his symptoms this seems unlikely -Cannot rule out stroke though with timeline and normal CT head this seems to be less of a possibility; presented outside TPA window -Echo: EF=55%, no RWMA, normal systolic and diastolic function -CTA head and neck showing finding suspicious for vertebral artery dissection moderate stenosis of bilateral ICA, multifocal mild to moderate stenosis of bilateral MCA in the M1 segments -Had MRA of the head and neck done showing severe attenuation of the vertebral arteries bilaterally, no dissection -Continue aspirin, statin, plavix added per [facility] recommendations -Noted TSH, A1c and lipid panel -seizure/aspiration precautions -PT/OT/ST evaluations appreciated; will request outpatient ST -outpatient MRI for further workup ordered (2) Hypertension: Status: Chronic Problem details: -has known hx of borderline HTN -VSS; continue to monitor -BP controlled without intervention Qualifiers: Hypertension type: essential hypertension Qualified Code(s): I10 - Essential (primary) hypertension (3) Hyperlipidemia: Status: Acute Problem details: -has known hx of high cholesterol though not on statins -lipid panel; on statin Qualifiers: Hyperlipidemia type: unspecified Qualified Code(s): E78.5 - Hyperlipidemia, unspecified Other Information Additional DC diagnoses/information: -Gout; has been on allopurinol -remote hx of prostate cancer s/p radical prostatectomy Reason for Visit Reason for Visit: Reason For Visit: AMS Hospital Course Hospital Course: Patient was admitted to the medical surgical floor and placed on telemetry monitoring. Initial etiology of his presentation was unclear but needed to rule out stroke so had an echo and CTA of the head and neck done. CTA showed possible vertebral artery dissection and MRA of the head and neck was done showing severe bilateral vertebral artery attenuation. [facility] was contacted and neurologist recommended initiation of dual antiplatelet therapy with aspirin and Plavix as well as statin. Echo is normal with an ejection fraction of 55%. He has worked well with physical and occupational therapy but was noted to have some deficits on evaluation by speech therapy. As such I have requested outpatient speech therapy to continue to work with him. He has been hemodynamically stable without need for antihypertensives. He is not diabetic and TSH is normal. He will need to have outpatient MRI done which I have ordered to complete the work-up as recommended by neurologist at [facility]. He will be referred to Dr. Crowley for further evaluation of noted bilateral carotid stenosis. Patient is counseled on need to seek medical attention immediately if symptoms return particularly in terms of syncope, weakness, fall, visual deficit. Discharge Summary: -Patient to follow-up with primary care physician within 1 week -Patient to follow-up with Dr. Crowley as soon as next available appointment for further evaluation of noted bilateral carotid stenosis -Patient to follow-up with neurology as soon as next available appointment -Patient to be scheduled for outpatient MRI as well as outpatient speech therapy Physical Exam Const: COMMON NORMALS: no apparent distress, oriented x3 and alert GENERAL APPEARANCE: cooperative and comfortable; not in distress and not anxious NUTRITIONAL APPEARANCE: overweight ORIENTATION/CONSCIOUSNESS: Yes awake HENMT: COMMON NORMALS: normocephalic, head/scalp atraumatic and moist oral mucous membranes HEAD & SCALP: normocephalic and atraumatic GENERAL EAR: hearing grossly impaired Eye: COMMON NORMALS: PERRL, EOMs intact bilaterally and conjunctivae normal CONJUNCTIVA: Yes conjunctivae normal PUPIL: Yes PERRL Neck/C-Spine: COMMON NORMALS: full ROM GENERAL: Yes normal visual inspection and Yes trachea midline Chest: COMMONS NORMALS: inspection of chest normal Resp: COMMON NORMALS: normal respiratory effort, no retractions, no use of accessory muscles and clear to auscultation bilaterally EFFORT & INSPECTION: Yes able to speak in complete sentences, Yes symmetric chest movement and No tachypneic AUSCULTATION: clear to auscultation bilaterally Cardio: COMMON NORMALS: regular rate, regular rhythm, S1 normal heart sound, S2 normal heart sound and no murmurs RATE: regular rate RHYTHM: regular rhythm HEART SOUNDS: S1 normal and S2 normal GI: COMMON NORMALS: normal to inspection, nondistended, normoactive bowel sounds, soft to palpation and non-tender INSPECTION: Yes central obesity PALPATION: Yes soft Back/Pelvis: COMMON NORMALS: thoracic and lumbar spine normal to inspection and straight leg raise negative bilaterally Extremity: COMMON NORMALS: normal to inspection, full ROM and no clubbing, cyanosis or edema; negative for no pedal edema Neuro: COMMON NORMALS: oriented x3, moves all extremities, no focal motor deficits and no sensory deficits noted SENSORIUM/ORIENTATION: Yes alert COORDINATION/BALANCE: [id number] test normal and does not sway with eyes open SPEECH: speech normal GAIT: Yes other (stiff gait) SENSORY EXAM: No sensory level loss detected MOTOR EXAM: strength 5/5 throughout, no pronator drift, no asterixis, muscle tone normal throughout, tremor resting tremor and asterixis COORDINATION: [id number]-[id number] test normal and does not sway with eyes open OTHER: -does have noted trouble finding his words and getting his thoughts together Psych: COMMON NORMALS: mental status grossly normal, thought process normal, cooperative, affect normal and speech normal SPEECH: Yes normal speech THOUGHT PROCESS: normal thought process Skin: COMMON NORMALS: no rashes or lesions noted, no jaundice, no petechiae and no mottling GENERAL SKIN EXAM: no rashes or lesions noted Discharge Data Data Completed and Pending: Completed Studies During Hospitalization Category Date Time Status CT angio headneck * [id number] Rout ine Cat Scan 05/29/19 20:[address] head wo con* [id number] Stat Cat Scan 05/29/19 15:50 Completed XR chest 1V abimael ble [id number] Urgent Exams 05/29/19 15:58 Completed MR angio head wo con [id number] Stat MRI 05/29/19 23:03 Completed MR angio neck wo con [id number] Stat MRI 05/29/19 23:03 Completed CV echo complete* [id number] Routine Ultrasound 05/30/19 10:00 Completed Pending at discharge Category Date Time Status MR head wo con* [id number] Routine MRI 05/31/19 03:48 Ordered Vitals: Last Vital Signs Temp 98.0 F 05/31/19 08:00 Pulse 57 L 05/31/19 08:00 Resp 18 05/31/19 08:00 BP 146/79 05/31/19 08:00 Pulse Ox 96 05/31/19 08:00 Discharge Plan Discharge Patient Disposition: Home, Self-Care Condition: Stable Prescriptions: New atorvastatin 40 mg Tablet 40 mg PO BEDTIME 30 Days Qty: 30 RF: 0 clopidogrel 75 mg Tablet 75 mg PO DAILY 30 Days Qty: 30 RF: 0 aspirin 81 mg Tablet,Chewable 81 mg PO DAILY 30 Days Qty: 30 RF: 0 Continued allopurinol 100 mg tablet 100 mg PO DAILY RF: 0 Discharge Orders: Discharge Order (Routine); Ordered 05/31/19 Ordered By: Georgie Pretty Other Ambulatory Orders: MR head wo con* [id number] (Routine) Timeframe: 1 Week Facility: [facility] - Location: Rad[facility] Ordered By: Georgie Pretty Speech Language Pathology Eval and Treat Outpatient (Order) Timeframe: 1 Week Facility: [facility] - Location: OT [facility] Ordered By: Georgie Pretty Referrals: Lidia Nuñez MD [Physician] - 6 Weeks (Post hospital discharge follow up. Found to have significant bilateral vertebral artery stenosis Started on DAPT and statin. ) Iban Ball DO [Family Provider] - Dave Crowley MD [Physician] - 1 week (Patient has significant bilateral vertebral artery stenosis per CTA and MRA. Has been started on aspirin, plavix, statin. Needs further evaluation. ) Cristina Vann PA [Primary Care Provider] - 4-7 days (Post-hospital discharge follow up. Has significant bilateral carotid stenosis. Has been started on aspirin, plavix, statin. Will be referred to Dr. Crowley) Discharge Diet: Low Salt and Low Cholesterol Discharge Activity: Resume usual activity Discharge Attestations Time Spent in Discharge Care*: greater than 30 min Specific Discharge Activities: Specific discharge activities: educating patient, educating and/or supporting family/caregiver, documenting/other paperwork and evaluating patient/reviewing data Status at Discharge: Cognitive status at discharge: cognitively intact, Behavioral status at discharge: cooperative, Functional status at discharge: independent ambulation Overall status at discharge: patient is progressing back to baseline Quality Metrics Clinical Quality Measures During this hospital stay, did patient experience: None Coding Level of Care Code Acute Brine Tank Operator for Chg Fwd Diagnoses Syncope and collapse R55 Hypertension I10 Hypertension type: essential hypertension Hyperlipidemia E78.5 Hyperlipidemia type: unspecified
[2019-05-31] MEDS: aspirin 81 mg Chew Tablet PO (08:42)
[2019-05-31] MEDS: clopidogrel 75 mg Tablet PO (08:42)
[2019-05-31 10:04] VITALS: BP 146/79; PULSE 57; RESP 18; TEMP 36.7; O2SAT 96
== END 2019-05-31 11:40 | disposition home or self-care (01) | DRG 68 ==
LOC: ER 17:43 → MEDSURG 18:16
PROVIDERS: Admitting Provider Family Medicine; Emergency Provider Emergency Medicine; Family Provider Family Medicine; PCP Physician Assistant; Visit Provider Family Medicine
DX: I65.23 Occlusion and stenosis of bilateral carotid arteries (principal); R55 Syncope and collapse; R41.82 Altered mental status, unspecified; Z85.46 Personal history of malignant neoplasm of prostate; Z90.79 Acquired absence of other genital organ(s); I10 Essential (primary) hypertension; M10.9 Gout, unspecified; E78.5 Hyperlipidemia, unspecified; I25.10 Atherosclerotic heart disease of native coronary artery without angina pectoris; Z87.891 Personal history of nicotine dependence
CPT/HCPCS: 12345; 36415; 70450; 70496; 70498; 70544; 70547; 71045; 80048; 80053; 80061; 81001; 82140; 82550; 83036; 84443; 84484; 84550; 85025; 85610; 92522; 93005; 93306; 96105; 96372; 97110; 97116; 97161; 97166; 97530; 97535; 99283; G0378; J1650; J7030; Q9967

== ENCOUNTER → 2019-06-09 10:14 | Outpatient (BNVA) | payer MEDICARE, SELFPAY | PROVIDERS: Family Provider Family Medicine; PCP Physician Assistant; Referring Provider Physician Assistant; Visit Provider Specialist | DX: Z86.73 Personal history of transient ischemic attack (TIA), and cerebral infarction without residual deficits (principal); Z87.891 Personal history of nicotine dependence | CPT/HCPCS: 99204 ==

== ENCOUNTER 2019-06-10 13:44 | Outpatient (CLI) | payer MEDICARE, SELFPAY ==
--- NOTE | 2019-06-10 14:24 | MR_ITS ---
WS: [id number] MRI HEAD WITH CONTRAST TECHNIQUE: Sagittal T1, T2 axial, T2 axial FLAIR, axial susceptibility weighted imaging, axial diffus ion weighted images, and coronal T2 images were obtained. Pre and post-T1 axial and post T1 coronal i mages. ADC and FSPGR images. CLINICAL INFORMATION: CVA COMPARISON: MRA May 30, 2019 and CTA May 29, 2019 FINDINGS: Severe bilateral supraclinoid ICA stenosis also visualized on prior intracranial vascular imaging. Un usual Diffuse cavernous sinus and cavernous carotid circumferential enhancement. Somewhat prominent i nfundibular enhancement extending into the sella. Subtle slightly prominent dural enhancement along t he dorsum sellae and adjacent clivus In addition, suggestion of bilateral peripheral optic nerve enhancement. Recommend correlation with v isual symptoms. Symmetric supraclinoid vascular stenosis suggestive of vasculitis or moyamoya. Howeve r, given pituitary and intraorbital involvement more specific for lymphoma and neurosarcoid. Partiall y empty sella. No evidence of restricted diffusion to suggest acute ischemia. Ventricular system and basal cisterns are patent. No acute ischemia in the brainstem or posterior fossa. Mild small vessel changes. Moderate parenchymal volume loss. Prominent perivascular space right basal ganglia. Small vessel changes in the brown. Mucosal thickening in the right mastoid air cells. High-g rade stenosis in the bilateral supraclinoid ICAs. Partially visualized narrowing in the intracranial vertebral arteries previously described. Normal basilar artery flow-void. Paranasal sinuses are well aerated. Notified THANH Capone at 06/11/2019 11:29 AM. MR/MR head wo/w con [id number] IMPRESSION: 1. No evidence of restricted diffusion to suggest acute ischemia. 2. Mild small vessel changes with moderate parenchymal volume loss.. 3. Severe symmetrical stenosis in the bilateral carotid siphon and supraclinoi d ICAs in a symmetric fashion. Associated cavernous sinus and diffuse cavernous carotid adventitial enhancement. 4. In addition, prominent pituitary infundibular enhancement extending into th e sella with a partially empty sella. Suggestion of intraorbital peripheral opt ic nerve enhancement. 5. Vascular findings suggestive of vasculitis. However, considering the pituit eulalio and orbital involvement constellation of findings more specific for lymphom a and neurosarcoid. Also consider meningitis and lymphocytic hypophysitis altho ugh less likely. 6. Right mastoid effusion.
== END 2019-06-10 13:45 | disposition home or self-care (01) ==
LOC: RADSHAW 13:49
PROVIDERS: Family Provider Family Medicine; PCP Physician Assistant; Visit Provider Physician Assistant
DX: I63.9 Cerebral infarction, unspecified (principal)
CPT/HCPCS: 70553; A9579

== ENCOUNTER → 2019-06-11 12:41 | Outpatient (BNVA) | payer MEDICARE, SELFPAY | PROVIDERS: Family Provider Family Medicine; PCP Physician Assistant; Visit Provider Specialist | DX: I67.7 Cerebral arteritis, not elsewhere classified (principal); Z87.891 Personal history of nicotine dependence | CPT/HCPCS: 62270; 99215 ==

== ENCOUNTER 2019-06-30 13:09 | Observation (INO) | payer MEDICARE, SELFPAY ==
[2019-06-30] VITALS (14 sets, daily range): BP systolic 127–151; BP diastolic 61–83; PULSE 50–82; RESP 12–19; TEMP 36.7–36.8; O2SAT 95–99; BMI 28.5
--- NOTE | 2019-06-30 13:21 | W.ED.DIZZY ---
HPI - Dizziness General: Chief Complaint: Dizziness Stated Complaint: DIZZINESS Time Seen by Provider: 06/30/19 13:11 PFSH ED PFSH: Social History Smoking and tobacco status: never smoked Quit status (tobacco): has quit using tobacco Year quit tobacco: quit in his 20s Alcohol intake: current Alcohol intake frequency: holidays/special occasions only Household members: spouse History of recent travel: No Course Vital Signs: Vital signs: Vital Signs Temperature 98.3 F 06/30/19 13:09 Pulse Rate 60 06/30/19 13:23 Respiratory Rate 16 06/30/19 13:23 Blood Pressure 132/83 06/30/19 13:09 Pulse Oximetry 99 06/30/19 13:23 Discharge Plan Discharge Prescriptions: No Action nystatin 100,000 unit/mL suspension 100,000 unit PO .four times daily RF: 0 prednisone 20 mg tablet 80 mg PO DAILY RF: 0 famotidine 20 mg Tablet 20 mg PO DAILY RF: 0 aspirin 81 mg Tablet,Chewable 81 mg PO DAILY RF: 0 Novolin N Flexpen 100 unit/mL (3 mL) Insulin Pen 15 unit SUBCUT DAILY RF: 0 Oyster Shell Calcium-Vit D3 500 mg(1,250mg) -200 unit Tablet 1 tab PO DAILY RF: 0 Trulicity 1.5 mg/0.5 mL Pen Injector SUBCUT DIRECTED RF: 0 allopurinol 100 mg tablet 100 mg PO DAILY RF: 0 Coding Level of Care Code ED Manager Delivery for Meagan Pritchett
--- NOTE | 2019-06-30 13:32 | XR_ITS ---
WS: [id number] Portable AP upright chest, 06/30/2019 Clinical Data: cough Comparison: Portable chest, 05/29/2019 Findings: No nodules, masses or effusions are seen. The heart is normal. The pulmonary vascularity is not increased. No pneumonia or pneumothorax is seen. The aortic arch is slightly tortuous. The left costophrenic angle shows pleural reaction. XR/XR chest 1V portable [id number] Impression: Atherosclerosis.
--- NOTE | 2019-06-30 13:32 | CT_ITS ---
WS: [id number] CT HEAD TECHNIQUE: Noncontrast CT of the head obtained from the skullbase to the vertex. CLINICAL INFORMATION: BLANC/AMS COMPARISON: MRI June 10, 2019 DLP: 807.[address] scans at [facility] use at least one of these dose optimization techniques: automat ed exposure control; mA and/or kV adjustment per patient size (includes targeted exams where dose is matched to clinical indication); or iterative reconstruction. FINDINGS: No evidence of intracranial hemorrhage or mass effect. Ventricular system and basal cisterns are arellano nt. Mild small vessel changes with moderate parenchymal volume loss. Incidental right choroidal fissu re cyst. No extra-axial fluid collections. No evidence of mass or mass effect. Normal kang-white diff erentiation. Paranasal sinuses and mastoid air cells are well aerated. .Normal visualized soft tissues. Notified Nieves Chambers at 06/30/2019 2:[address]/CT head wo con* [id number] IMPRESSION: 1. No evidence of intracranial hemorrhage or mass effect. 2. Mild small vessel changes. Moderate parenchymal volume loss. 3. No acute intracranial findings.
--- NOTE | 2019-06-30 13:34 | ECG_ITS ---
Measurements Intervals Ethel Rate: 52 P: 33 WV: 162 QRS: 58 QRSD: 100 T: 53 QT: 412 QTc: 386 SINUS BRADYCARDIA POSSIBLE RIGHT VENTRICULAR CONDUCTION DELAY [RSR (QR) IN V1/V2] Compared to ECG 05/29/2019 17:43:31 Myocardial infarct finding no longer present Electronically Signed On 06-30-2019 20:18:17 CDT by Augustina Nelson M.D. [email or web address]
[2019-06-30 13:45] LABS: Basophils % 0.1 %; Eosinophils % 0.3 %; Hematocrit 51.4 % (42.0-52.0); Hemoglobin 16.5 g/dL (11.7-16.6); Lymphocytes # 1.7 10^3/uL (0.8-4.8); Lymphocytes % 12.3 %; Mean Corpuscular HGB Conc 32.1 g/dL (30.0-36.0); Mean Corpuscular Hemoglobin 29.8 pg (28.0-34.0); Mean Corpuscular Volume 92.9 fL (80-94); Mean Platelet Volume 9.8 fL (7.4-10.4); Monocytes # 0.8 10^3/uL (0.2-0.9); Monocytes % 6.2 %; Neutrophils # 10.9 10^3/uL (1.8-7.7); Neutrophils % 79.9 %; Nucleated Red Blood Cells % 0 %; Platelet Count 278 10^3/cmm (130-400); Red Blood Count 5.53 10^6/uL (4.1-5.3); Red Cell Distribution Width 13.2 % (12.1-15.1); White Blood Count 13.6 10^3/uL (4.0-10.0)
[2019-06-30 13:54] LABS: INR 0.94 (0.8-1.2)
[2019-06-30 13:59] LABS: Troponin(5th) Baseline 12 ng/mL (0-15)
[2019-06-30 14:23] LABS: Alanine Aminotransferase 36 U/L (0-41); Albumin Level 4.2 g/dL (3.5-5.2); Alkaline Phosphatase 81 IU/L (40-130); Anion Gap 17.1 (5-19); Aspartate Amino Transferase 19 U/L (0-40); Blood Urea Nitrogen 23 mg/dL (8-23); Calcium 9.6 mg/dL (8.5-10.5); Carbon Dioxide 27 mmol/L (22-29); Chloride 100 mmol/L (98-107); Creatine Phosphokinase 27 U/L (39-308); Globulin 1.4 g/dL (1.3-4.6); Glucose 107 mg/dL (65-115); Magnesium 2.5 mg/dL (1.7-2.3); Osmolality Calculated 287 mOsm/kg (285-295); Potassium 4.1 mmol/L (3.5-5.1); Sodium 140 mmol/L (136-145); Thyroid Stimulating Hormone 3.85 uIU/mL (0.27-4.20); Total Bilirubin 0.5 mg/dL (0.15-1.2); Total Protein 5.6 g/dL (6.6-8.7)
[2019-06-30 14:24] LABS: Alcohol Level < 10 mg/dL (0-10)
[2019-06-30 14:37] LABS: ABG PCO2 32.1 mmHg (35-45); Arterial Blood Gas Hematocrit 47.2 % (42-52); Base Excess ABG 2.3 mmol/L (-2.0-2.0); Blood Gas Allen Test Pos; Blood Gas Sample Site Radial, left; Blood Gas Sample Type Arterial; HCO3 ABG 24.9 mmol/L (22-26)
[2019-06-30 14:52] LABS: Amphetamines Screen Urine Negative (Negative); Barbiturates Screen Urine Negative (Negative); Benzodiazepines Screen Urine Negative (Negative); Cocaine Screen Urine Negative (Negative); Opiate Screen Urine Negative (Negative); PCP Screen Urine Negative (Negative); THC Screen Urine Negative (Negative)
[2019-06-30 14:57] LABS: Add Urine Culture? No; Bacteria Urine TRACE; Bilirubin Urine Neg (NEGATIVE); Blood Urine Neg (Negative); Glucose Urine UA Norm (Normal); Ketones Urine Negative (Negative); Leukocyte Esterase Urine Negative (Negative); Mucus Urine TRACE; Nitrate Urine Negative (Negative); Protein Urine Neg (Negative); Squamous Epithelial Cell Urine 0-4 (0-5); Urine Appearance Clear (CLEAR); Urine Color Yellow (Yellow); Urobilinogen Urine Norm (Negative)
--- NOTE | 2019-06-30 15:11 | W.ED.DIZZY ---
HPI - Dizziness General: Chief Complaint: Dizziness Stated Complaint: DIZZINESS Time Seen by Provider: 06/30/19 13:11 History of Present Illness: HPI Narrative: Mr. Kaye is a 79-year-old male who comes in complaining of generalized weakness and fatigue. Symptoms started today. He states she just feels tired overall. Denies headache, blurred vision, chest pain, shortness of breath, abdominal pain, vomiting or otherwise. Patient was recently in the hospital for giant cell arteriolitis at [facility] and is currently on prednisone 80 mg daily. Patient denies any other focal complaints at this time. Associated symptoms: Reports malaise; Denies change in hearing, chest pain, chills, diaphoresis, ear discharge, headache(s), nausea, palpitations, syncope or vomiting Associated neuro symptoms: Deny confusion or numbness in extremities Review of Systems General: Reports: other (negative unless marked) Const: Reports: fatigue and malaise; Denies: fever, chills, body aches or diaphoresis Eyes: Denies: change in vision or blurry vision ENMT: Denies: throat pain, painful swallowing, hoarseness, ear pain, ear discharge, Change in hearing or nasal discharge Card: Denies: chest pain, palpitations, irregular heart rhythm, syncope, pre-syncope, shortness of breath on exertion or shortness of breath when lying down Resp: Denies: shortness of breath, productive cough, non-productive cough, wheezing, coughing up blood or chest congestion GI: Denies: abdominal pain, nausea, vomiting, vomiting blood, coffee grounds in vomit, diarrhea, constipation, cramping, blood in stool or black tarry stool : Denies: flank pain, difficulty urinating, painful urination, urinary frequency, urinary urgency, decreased urine ouput, urinary incontinence or blood in urine Musc: Denies: neck pain, back pain, extremity pain, extremity swelling, joint pain, joint swelling, joint warmth or joint stiffness Skin/Breast: Denies: rash, skin tenderness or yellow skin Neuro: Denies: headache, numbness in extremities, weakness in extremities, changes in sensation, lack of coordination, difficulty walking, dizziness, vertigo or confusion Endo: Denies: excessive thirst, tired all the time, cold intolerance, excessive sweating, flushing or hot flashes Martinez/Lymph: Denies: easy bruising, easy bleeding, petechiae or enlarged lymph nodes All/Imm: Denies: hives, throat swelling, tongue swelling, facial swelling or acute wheezing PFSH ED PFSH: Medical History (Updated 06/30/19 @ 19:27 by Ernst Wei MD) [employer] vasculitis Giant cell arteritis Gout Hypertension -has known hx of borderline HTN -VSS; continue to monitor -BP controlled without intervention Prostate cancer Surgical History H/O prostatectomy H/O rhinoplasty Hx of transurethral resection of prostate Family History Father ALS (amyotrophic lateral sclerosis) Sister Dementia Alzheimer's dementia Mother Cancer Breast cancer Other CAD (coronary artery disease) Denies family history of Hypertension Stroke Social History Smoking and tobacco status: never smoked Quit status (tobacco): has quit using tobacco Year quit tobacco: quit in his 20s Alcohol intake: current Alcohol intake frequency: holidays/special occasions only Household members: spouse History of recent travel: No Physical Exam Const: COMMON NORMALS: no apparent distress, oriented x3, no limitations, healthy appearing and well nourished EXAM LIMITATIONS: no altered mental status GENERAL APPEARANCE: cooperative, well kempt and well developed ORIENTATION/CONSCIOUSNESS: Yes awake HENMT: COMMON NORMALS: normocephalic, head/scalp atraumatic, hearing grossly normal bilaterally, external ears normal, EAC's normal, external nose normal and moist oral mucous membranes HEAD & SCALP: normal to inspection, normocephalic and atraumatic FACE & SINUS: normal facial exam and face symmetric NOSE: external nose normal and nares normal EXTERNAL EAR: Yes external ears normal EXTERNAL AUDITORY CANAL: EAC's normal MOUTH: oral and palatal mucosa normal and tongue normal Eye: COMMON NORMALS: PERRL, EOMs intact bilaterally, conjunctivae normal and no scleral icterus GENERAL EYE: normal appearance of both eyes and normal light reflex CONJUNCTIVA: Yes conjunctivae normal SCLERA: sclerae normal CORNEA: Yes corneas normal PUPIL: Yes PERRL DIRECT OPHTHALMOSCOPY: Yes normal light reflex Neck/C-Spine: COMMON NORMALS: full ROM, no lymphadenopathy, supple, no meningeal signs and no JVD GENERAL: Yes normal visual inspection and Yes trachea midline CERVICAL SPINE: Yes cervical ROM normal Chest: COMMONS NORMALS: inspection of chest normal and palpation of chest normal Resp: COMMON NORMALS: normal respiratory effort, no retractions, no use of accessory muscles and clear to auscultation bilaterally EFFORT & INSPECTION: Yes able to speak in complete sentences AUSCULTATION: clear to auscultation bilaterally Cardio: COMMON NORMALS: no JVD, regular rate, regular rhythm, S1 normal heart sound, S2 normal heart sound, no gallops, no clicks, no murmurs and no rub JUGULAR VENOUS DISTENTION: no JVD RATE: regular rate RHYTHM: regular rhythm HEART SOUNDS: S1 normal and S2 normal GI: COMMON NORMALS: soft to palpation, non-tender, no hepatosplenomegaly and no masses INSPECTION: Yes normal to inspection PALPATION: Yes soft and Yes no hepatosplenomegaly : COMMON NORMALS: Yes no CVA tenderness BLADDER/KIDNEY EXAM: Yes no CVA tenderness Back/Pelvis: COMMON NORMALS: no CVA tenderness, thoracic and lumbar spine normal to inspection, no thoracic nor lumbar tenderness and thoraco-lumbar ROM normal Extremity: COMMON NORMALS: normal to inspection, full ROM, normal capillary refill, no joint enlargement, no clubbing, cyanosis or edema and no calf tenderness Neuro: COMMON NORMALS: oriented x3, CN's II-XII intact bilaterally, moves all extremities, no focal motor deficits and no sensory deficits noted MENINGEAL SIGNS: Yes no meningeal signs Psych: COMMON NORMALS: mental status grossly normal, thought process normal, cooperative, affect normal, speech normal and activity/motor behavior normal APPEARANCE: Yes well kempt SPEECH: Yes normal speech THOUGHT PROCESS: normal thought process Skin: COMMON NORMALS: no rashes or lesions noted, skin turgor normal, no jaundice, no petechiae and no mottling GENERAL SKIN EXAM: no rashes or lesions noted and turgor normal Course Vital Signs: Vital signs: Vital Signs Temperature 64 F L 06/30/19 16:26 Pulse Rate 60 06/30/19 17:30 Respiratory Rate 17 06/30/19 17:30 Blood Pressure 145/74 06/30/19 17:30 Pulse Oximetry 98 03/24/20 16:41 MDM - Dizziness MDM Narrative: Medical decision making narrative: Josr is a nice 79-year-old male who comes in with fatigue and weakness. He is recently been in the hospital for giant cell arteriolitis diagnosed at [facility]. He is currently taking 80 mg of prednisone daily. Patient denies any headache, chest pain, shortness of breath, back pain, abdominal pain, extremity pain or fever. He just complains of generalized weakness and his that he was very somnolent but would arouse to voice. Upon further history the patient states he took melatonin last night which will make him feel this way. To atypical from melatonin to last this long but he states that this is what happens to him. I reviewed the case in full with Dr. Nuñez who feels the patient is probably safe for discharge and she will see him in the office tomorrow as scheduled. Nonetheless I have still offered and recommended admission to the family and they declined. They want to go home. They do agree to return should his symptoms change or worsen but at this time they want to be discharged. Admission -patient ultimately felt that he was too weak to go home. I reviewed the case with Dr. Ocasio who graciously offered to come evaluate the patient in the ER. Lab Data: Attestation: I reviewed the patient's lab results. Labs: Lab Results 06/30/19 06/30/19 06/30/19 Range/Units 12:55 12:55 12:55 WBC 13.6 H (4.0-10.0) 10^3/ uL RBC 5.53 H (4.1-5.3) 10^6/u L Hgb 16.5 (11.7-16.6) g/dL Hct 51.4 (42.0-52.0) % MCV 92.9 (80-94) fL MCH 29.8 (28.0-34.0) pg MCHC 32.1 (30.0-36.0) g/dL RDW 13.2 (12.1-15.1) % Plt Count 278 (130-400) 10^3/c mm MPV 9.8 (7.4-10.4) fL Neut % (Auto) 79.9 % Lymph % (Auto) 12.3 % Ward % (Auto) 6.2 % Eos % (Auto) 0.3 % Baso % (Auto) 0.1 % Neut # (Auto) 10.9 H (1.8-7.7) 10^3/u L Lymph # (Auto) 1.7 (0.8-4.8) 10^3/u L Ward # (Auto) 0.8 (0.2-0.9) 10^3/u L Eos # (Auto) 0.0 (0.0-0.8) 10^3/u L Baso # (Auto) 0.0 (0.0-0.1) 10^3/u L Nucleated RBC % (a uto) 0 % Nucleated RBCs # 0.0 /100WBC PT 12.60 (10.5-13.3) SECO NDS INR 0.94 (0.8-1.2) Specimen Type Sample Site ABG pH (7.35-7.45) ABG pCO2 (35-45) mmHg ABG pO2 (80.0-100.0) mmH g ABG HCO3 (22-26) mmol/L ABG Base Excess (-2.0-2.0) mmol/ L Nadir Test Hematocrit (42-52) % O2 Delivery Device FiO2 % Transport Conductor ID Sodium 140 (136-145) mmol/L Potassium 4.1 (3.5-5.1) mmol/L Chloride 100 (98-107) mmol/L Carbon Dioxide 27 (22-29) mmol/L Anion Gap 17.1 (5-19) BUN 23 (8-23) mg/dL Creatinine 1.3 H (0.7-1.2) mg/dL Glucose 107 (65-115) mg/dL Calculated Osmolal ity 287 (285-295) mOsm/k g Calcium 9.6 (8.5-10.5) mg/dL Magnesium 2.5 H (1.7-2.3) mg/dL Total Bilirubin 0.5 (0.15-1.2) mg/dL AST 19 (0-40) U/L ALT 36 (0-41) U/L Alkaline Phosphata se 81 (40-130) IU/L Creatine Kinase 27 L (39-308) U/L Troponin T Baselin e (0-15) ng/mL Troponin T 120 Min [place] (0-15) ng/mL Delta Troponin T (0-10) ABS# Total Protein 5.6 L (6.6-8.7) g/dL Albumin 4.2 (3.5-5.2) g/dL Globulin 1.4 (1.3-4.6) g/dL TSH 3.85 (0.27-4.20) uIU/ mL Urine Color (Yellow) Urine Appearance (CLEAR) Urine pH (5-7) Ur Specific Gravit y (1.005-1.030) Urine Protein (Negative) Urine Glucose (UA) (Normal) Urine Ketones (Negative) Urine Blood (Negative) Urine Nitrate (Negative) Urine Bilirubin (NEGATIVE) Urine Urobilinogen (Negative) mg/dL Ur Leukocyte Darling ase (Negative) Urine RBC (0-2) /hpf Urine WBC (0-5) /hpf Ur Squamous Epith Cells (0-5) Urine Bacteria (NONE) Urine Mucus Urine Opiates Scre en (Negative) ng/mL Ur Barbiturates Sc reen (Negative) ng/mL Ur Phencyclidine S crn (Negative) ng/mL Ur Amphetamines Sc reen (Negative) ng/mL U Benzodiazepines Scrn (Negative) ng/mL Urine Cocaine Scre en (Negative) ng/mL U Marijuana (THC) Screen (Negative) ng/mL Ethyl Alcohol < 10 (0-10) mg/dL 06/30/19 06/30/19 06/30/19 Range/Units 12:55 13:59 13:59 WBC (4.0-10.0) 10^3/ uL RBC (4.1-5.3) 10^6/u L Hgb (11.7-16.6) g/dL Hct (42.0-52.0) % MCV (80-94) fL MCH (28.0-34.0) pg MCHC (30.0-36.0) g/dL RDW (12.1-15.1) % Plt Count (130-400) 10^3/c mm MPV (7.4-10.4) fL Neut % (Auto) % Lymph % (Auto) % Ward % (Auto) % Eos % (Auto) % Baso % (Auto) % Neut # (Auto) (1.8-7.7) 10^3/u L Lymph # (Auto) (0.8-4.8) 10^3/u L Ward # (Auto) (0.2-0.9) 10^3/u L Eos # (Auto) (0.0-0.8) 10^3/u L Baso # (Auto) (0.0-0.1) 10^3/u L Nucleated RBC % (a uto) % Nucleated RBCs # /100WBC PT (10.5-13.3) SECO NDS INR (0.8-1.2) Specimen Type Sample Site ABG pH (7.35-7.45) ABG pCO2 (35-45) mmHg ABG pO2 (80.0-100.0) mmH g ABG HCO3 (22-26) mmol/L ABG Base Excess (-2.0-2.0) mmol/ L Nadir Test Hematocrit (42-52) % O2 Delivery Device FiO2 % Transport Conductor ID Sodium (136-145) mmol/L Potassium (3.5-5.1) mmol/L Chloride (98-107) mmol/L Carbon Dioxide (22-29) mmol/L Anion Gap (5-19) BUN (8-23) mg/dL Creatinine (0.7-1.2) mg/dL Glucose (65-115) mg/dL Calculated Osmolal ity (285-295) mOsm/k g Calcium (8.5-10.5) mg/dL Magnesium (1.7-2.3) mg/dL Total Bilirubin (0.15-1.2) mg/dL AST (0-40) U/L ALT (0-41) U/L Alkaline Phosphata se (40-130) IU/L Creatine Kinase (39-308) U/L Troponin T Baselin e 12 (0-15) ng/mL Troponin T 120 Min [place] (0-15) ng/mL Delta Troponin T (0-10) ABS# Total Protein (6.6-8.7) g/dL Albumin (3.5-5.2) g/dL Globulin (1.3-4.6) g/dL TSH (0.27-4.20) uIU/ mL Urine Color Yellow (Yellow) Urine Appearance Clear (CLEAR) Urine pH 5.0 (5-7) Ur Specific Gravit y 1.020 (1.005-1.030) Urine Protein Neg (Negative) Urine Glucose (UA) Norm (Normal) Urine Ketones Negative (Negative) Urine Blood Neg (Negative) Urine Nitrate Negative (Negative) Urine Bilirubin Neg (NEGATIVE) Urine Urobilinogen Norm (Negative) mg/dL Ur Leukocyte Darling ase Negative (Negative) Urine RBC None (0-2) /hpf Urine WBC None (0-5) /hpf Ur Squamous Epith Cells 0-4 H (0-5) Urine Bacteria Trace (NONE) Urine Mucus Trace Urine Opiates Scre en Negative (Negative) ng/mL Ur Barbiturates Sc reen Negative (Negative) ng/mL Ur Phencyclidine S crn Negative (Negative) ng/mL Ur Amphetamines Sc reen Negative (Negative) ng/mL U Benzodiazepines Scrn Negative (Negative) ng/mL Urine Cocaine Scre en Negative (Negative) ng/mL U Marijuana (THC) Screen Negative (Negative) ng/mL Ethyl Alcohol (0-10) mg/dL 06/30/19 06/30/19 Range/Units 14:27 14:50 WBC (4.0-10.0) 10^3/ uL RBC (4.1-5.3) 10^6/u L Hgb (11.7-16.6) g/dL Hct (42.0-52.0) % MCV (80-94) fL MCH (28.0-34.0) pg MCHC (30.0-36.0) g/dL RDW (12.1-15.1) % Plt Count (130-400) 10^3/c mm MPV (7.4-10.4) fL Neut % (Auto) % Lymph % (Auto) % Ward % (Auto) % Eos % (Auto) % Baso % (Auto) % Neut # (Auto) (1.8-7.7) 10^3/u L Lymph # (Auto) (0.8-4.8) 10^3/u L Ward # (Auto) (0.2-0.9) 10^3/u L Eos # (Auto) (0.0-0.8) 10^3/u L Baso # (Auto) (0.0-0.1) 10^3/u L Nucleated RBC % (a uto) % Nucleated RBCs # /100WBC PT (10.5-13.3) SECO NDS INR (0.8-1.2) Specimen Type Arterial Sample Site Radial, left ABG pH 7.50 H (7.35-7.45) ABG pCO2 32.1 L (35-45) mmHg ABG pO2 80.0 (80.0-100.0) mmH g ABG HCO3 24.9 (22-26) mmol/L ABG Base Excess 2.3 H (-2.0-2.0) mmol/ L Nadir Test Pos Hematocrit 47.2 (42-52) % O2 Delivery Device None FiO2 21.0 % Transport Conductor ID Ah Sodium (136-145) mmol/L Potassium (3.5-5.1) mmol/L Chloride (98-107) mmol/L Carbon Dioxide (22-29) mmol/L Anion Gap (5-19) BUN (8-23) mg/dL Creatinine (0.7-1.2) mg/dL Glucose (65-115) mg/dL Calculated Osmolal ity (285-295) mOsm/k g Calcium (8.5-10.5) mg/dL Magnesium (1.7-2.3) mg/dL Total Bilirubin (0.15-1.2) mg/dL AST (0-40) U/L ALT (0-41) U/L Alkaline Phosphata se (40-130) IU/L Creatine Kinase (39-308) U/L Troponin T Baselin e (0-15) ng/mL Troponin T 120 Min [place] 10.14 (0-15) ng/mL Delta Troponin T -1.86 L (0-10) ABS# Total Protein (6.6-8.7) g/dL Albumin (3.5-5.2) g/dL Globulin (1.3-4.6) g/dL TSH (0.27-4.20) uIU/ mL Urine Color (Yellow) Urine Appearance (CLEAR) Urine pH (5-7) Ur Specific Gravit y (1.005-1.030) Urine Protein (Negative) Urine Glucose (UA) (Normal) Urine Ketones (Negative) Urine Blood (Negative) Urine Nitrate (Negative) Urine Bilirubin (NEGATIVE) Urine Urobilinogen (Negative) mg/dL Ur Leukocyte Darling ase (Negative) Urine RBC (0-2) /hpf Urine WBC (0-5) /hpf Ur Squamous Epith Cells (0-5) Urine Bacteria (NONE) Urine Mucus Urine Opiates Scre en (Negative) ng/mL Ur Barbiturates Sc reen (Negative) ng/mL Ur Phencyclidine S crn (Negative) ng/mL Ur Amphetamines Sc reen (Negative) ng/mL U Benzodiazepines Scrn (Negative) ng/mL Urine Cocaine Scre en (Negative) ng/mL U Marijuana (THC) Screen (Negative) ng/mL Ethyl Alcohol (0-10) mg/dL Imaging Data^: CT Head: Radiologist's impression: [address] [address] [address] Scan Report Signed Patient: Josr Kaye Unit #: [id number] : 1940 Age/Sex: 79 / M ADM Date: 06/30/19 Loc: ER Room/Bed: Attending Dr: Ordering Provider/Ordering MD: Nieves Chambers DO Date of Service: 06/30/19 Procedure(s): CT head wo con* [id number] Accession Number(s): [id number] Report Number: [id number] WS: [id number] CT HEAD TECHNIQUE: Noncontrast CT of the head obtained from the skullbase to the vertex. CLINICAL INFORMATION: BLANC/AMS COMPARISON: MRI June 10, 2019 DLP: 807.[address] scans at [facility] use at least one of these dose optimization techniques: automated exposure control; mA and/or kV adjustment per patient size (includes targeted exams where dose is matched to clinical indication); or iterative reconstruction. FINDINGS: No evidence of intracranial hemorrhage or mass effect. Ventricular system and basal cisterns are patent. Mild small vessel changes with moderate parenchymal volume loss. Incidental right choroidal fissure cyst. No extra-axial fluid collections. No evidence of mass or mass effect. Normal kang- white differentiation. Paranasal sinuses and mastoid air cells are well aerated. .Normal visualized soft tissues. Notified Nieves Chambers at 06/30/2019 2:[address]/CT head wo con* [id number] IMPRESSION: 1. No evidence of intracranial hemorrhage or mass effect. 2. Mild small vessel changes. Moderate parenchymal volume loss. 3. No acute intracranial findings. Dictated By: Corby Mustafa MD Signed By: Corby Mustafa MD Signed Date/Time: 06/30/19 142 DD/ 1420 CXR: My impression: No acute cardiopulmonary findings. EKG Data^: EKG 1: Attestation: I personally reviewed and interpreted this EKG as follows: EKG interpretation date: 06/30/19 EKG interpretation time: 14:35 Interpretation: Normal sinus rhythm at 52 beats a minute, incomplete right bundle branch block, no acute ST or T wave changes. Discharge Plan Discharge Patient Disposition: Home, Self-Care Clinical Impression: Acute confusion Condition: Stable Discharge Orders: Discharge Order (Routine); Ordered 06/30/19 Ordered By: Nieves Chambers Discharge Diet: Advance as tolerated Discharge Activity: Resume usual activity Discharge Date/Time: 06/30/19 17:06 Coding Level of Care Code ED Clothes Drier Assembler for Chg Fwd Exam Comprehensive
[2019-06-30 15:13] LABS: Troponin 5 2HR 10.14 ng/mL (0-15)
[2019-06-30] MEDS: sodium chloride 0.9% 1,000 ML 999 ML IV (15:15)
[2019-06-30 15:20] LABS: Troponin 5 2HR Delta -1.86 ABS# (0-10)
--- NOTE | 2019-06-30 15:34 | ECG_ITS ---
Measurements Intervals [place] Rate: 53 P: GA: 0 QRS: 54 QRSD: 96 T: 32 QT: 426 QTc: 402 Sinus bradycardia LOW QRS VOLTAGE IN PRECORDIAL LEADS [QRS DEFLECTION < 1.0 mV IN CHEST LEADS] Compared to ECG 05/29/2019 17:43:31 Myocardial infarct finding no longer present Electronically Signed On 06-30-2019 19:13:35 CDT by Pee Burnett M.D. [email or web address]
[2019-06-30 16:09] LABS: Blood Gas Operator Identificat AH
--- NOTE | 2019-06-30 17:30 | PC.NURSE ---
PATIENT TO CSU VIA STRETCHER WITH DIRECTOR OF AUDIOLOGY X2 ; A&O X4 ; IV INTACT WITH FLUIDS RUNNING ; PATIENT COMPLAINT OF DIZZINESS ; VSS WITH HEART RATE IN UPPER 50s ; PATIENT ORIENTED TO ROOM WITH CALL LIGHT AT SIDE ; MONITOR ATTACHED
[2019-06-30] MEDS: sodium chloride 0.9% 1,000 ML 100 ML IV (18:09)
--- NOTE | 2019-06-30 18:32 | P.HP_ITS ---
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 He reports after discharge he has overall been feeling significantly better. Has been more active and has been walking with a walker. He woke up overnight unable to sleep and was told to take melatonin to help him over at [facility], so he did, he took 2 tablets, then this morning he woke up generally weak, having trouble to get out from bed, having trouble even putting in his false teeth. He was uncoordinated, but otherwise denies particular complaints, had no vertigo. He had difficulty sitting upright. Due to steroid-induced diabetes, recently was started on Novolin 15 units every morning, and got that yesterday, but not so far this morning. She also received Trulicity last . First thing his did was check his blood glucose, and reports it was as low as 74 at the time when she checked it. He was very slow to improve, so she was concerned and brought him to the hospital. He also has history of orthostatic hypotension, and she was concerned about that as well. They do deny that he had any issues with his appetite, and has been eating and drinking very well. He also has been urinating a good amount. They returned from [place], however, deny exposure to any suspected COVID cases. He has been afebrile. In ER is without leukocytosis. Bradycardic, which his reports is a chronic thing, and has been asymptomatic. He has mild leukocytosis of 13.6 suspected due to steroid. He has no chest pain. EKG without suggestion of ischemia, with sinus bradycardia on initial tracing. Troponin not elevated. UA unremarkable, urine drug screen unremarkable. Head CT without acute findings. Chest x-ray showing atherosclerosis. TSH is normal. Blood glucose 107. He received a bolus of IV fluid. His orthostatic blood pressures were checked, and were 147/74, heart rate 64 supine, 137/76 heart rate 56 sitting up, 142/71 heart rate 64 standing. He had shown some improvement. His neurologist was contacted. Patient was felt safe for discharge with follow-up in office tomorrow. Admission was offered to the family, and they were concerned that he was still feeling weak and did not feel safe to return home at that time. I was contacted by ER physician with request for placement to observation. Review of Systems Const: Reports: other (Generalized weakness.); Denies: fever, chills, body aches or malaise Eyes: Denies: change in vision or eye redness ENMT: Denies: throat pain, oral sores/lesions or ear pain Card: Denies: chest pain, edema, pre-syncope or shortness of breath on exertion Resp: Denies: shortness of breath, productive cough, change in phlegm color or coughing up blood GI: Denies: abdominal pain, nausea, vomiting, diarrhea, constipation, blood in stool or black tarry stool : Denies: flank pain, difficulty urinating, urinary frequency or blood in urine Musc: Denies: back pain, joint swelling or redness Skin/Breast: Denies: rash, sores or new lesion Neuro: Denies: headache, numbness in extremities, weakness in extremities, dizziness, confusion or seizure-like activity Endo: Denies: excessive urination or excessive thirst Martinez/Lymph: Denies: easy bleeding or purpura All/Imm: Denies: hives, throat swelling or tongue swelling Medications/Allergies Home Medications Medication Instructions Recorded Confirmed Last Taken Type aspirin 81 mg PO DAILY 06/30/19 06/30/19 06/30/19 History atorvastatin 40 mg PO BEDTIME 06/30/19 06/30/19 06/30/19 History calcium carbonate-vitamin D3 1 tab PO DAILY 06/30/19 06/30/19 06/30/19 History [Oyster Shell Calcium-Vit D3] dulaglutide [Trulicity] 1.5 mg SUBCUT DIRECTED 06/30/19 06/30/19 06/25/19 History famotidine 20 mg PO DAILY 06/30/19 06/30/19 06/30/19 History insulin NPH isoph U-100 human 15 unit SUBCUT DAILY 06/30/19 06/30/19 06/29/19 History [Novolin N Flexpen] melatonin 6 mg PO BEDTIME PRN 06/30/19 06/30/19 06/29/19 History Allergies Allergy/AdvReac Type Severity Reaction Status Date / Time No Known Allergies Allergy Unverified 06/11/19 12:57 PFSH Acute PFSH: Medical History (Updated 06/30/19 @ 19:27 by Ernst Wei MD) LINEN WORKER vasculitis Giant cell arteritis Gout Hypertension -has known hx of borderline HTN -VSS; continue to monitor -BP controlled without intervention Prostate cancer Surgical History H/O prostatectomy H/O rhinoplasty Hx of transurethral resection of prostate Family History Father ALS (amyotrophic lateral sclerosis) Sister Dementia Alzheimer's dementia Mother Cancer Breast cancer Other CAD (coronary artery disease) Denies family history of Hypertension Stroke Social History Smoking and tobacco status: never smoked Quit status (tobacco): has quit using tobacco Year quit tobacco: quit in his 20s Alcohol intake: current Alcohol intake frequency: holidays/special occasions only Household members: spouse History of recent travel: No Vitals/I&O/Wt Last Vital Signs Temp 64 F L 06/30/19 16:26 Pulse 60 06/30/19 17:30 Resp 17 06/30/19 17:30 BP 145/74 06/30/19 17:30 Pulse Ox 98 06/30/19 16:41 06/30/19 06/30/19 06/30/19 06:59 14:59 22:59 Intake Total 1000 / 1000 Balance 1000 / 1000 Weight last 48 hrs Weight 95.254 kg Physical Exam Const: COMMON NORMALS: no apparent distress and oriented x3 OTHER: Very pleasant, hard of hearing gentleman, sitting up in bed, having dinner. is at bedside, wearing a surgical mask. HENMT: COMMON NORMALS: oropharynx normal Neck/C-Spine: COMMON NORMALS: no JVD Resp: COMMON NORMALS: normal respiratory effort and clear to auscultation bilaterally AUSCULTATION: clear to auscultation bilaterally Cardio: COMMON NORMALS: no JVD, regular rhythm, S1 normal heart sound, S2 normal heart sound and no murmurs RATE: bradycardic RHYTHM: regular rhythm HEART SOUNDS: S1 normal and S2 normal GI: COMMON NORMALS: normal to inspection, nondistended, normoactive bowel sounds, soft to palpation and non-tender PALPATION: Yes soft Extremity: COMMON NORMALS: no joint enlargement and no pedal edema Neuro: COMMON NORMALS: oriented x3 and moves all extremities OTHER: His sensation and power are full and intact. He has no neglect. There is no drift. No dysmetria on FNF. Visual brown are full to confrontation. No nystagmus. Skin: COMMON NORMALS: no rashes or lesions noted GENERAL SKIN EXAM: no rashes or lesions noted Data : 06/30/19 12:55 06/30/19 12:55 A&P Assessment and plan (1) Generalized weakness: At this point, despite mild leukocytosis there is no evidence of infection. Leukocytosis most likely related to his steroid use. His symptoms have completely resolved by the time I am seeing him on CSU. He is significantly better, awake, alert, providing his own history, having dinner. His is at bedside. Given his rapid improvement I doubt that there is recurrence/progression of his LINEN WORKER vasculitis. This appears to been an isolated episode related perhaps to his low blood sugar, 74 this morning, as well as taking 2 tablets of melatonin in the middle of the night. However, given his recent history it is not surprising that his family has gotten concerned. He is noted to have bradycardia, and EKG automated read on second tracing around 6 PM is reading high degree block, however, I do not see it, and I have discu ssed with the firing pin gauger on-call as well who evaluated tracing and agrees that it is sinus bradycardia. He has a long history of bradycardia which has been asymptomatic. I do not think that this is the cause of his symptoms. He does keep up with his meals, and denies any changes in appetite. He does state that he urinates a good amount, however. With steroid-induced diabetes, we will watch out for polyuria. Monitor I&O. He has perhaps slight dehydration with mild acute kidney injury with creatinine 1.3. Denies NSAID use recently, although in the past sometimes uses NSAID for gout. He received fluid challenge in ER. Orthostasis does not appear to be contributing, although perhaps assessment sensitivity was blunted after receiving IV fluid. He was not orthostatic on assessment from laying to sitting to standing. Of note at [facility] on echocardiogram was found to have positive bubble study with likely ASD/PFO, however, given the nonfocal nature of his symptoms, and no persistence, I am not suspecting his symptoms to be related to this. He continues on aspirin and statin. Status: Acute Code(s): R53.1 - Weakness (2) Hypoglycemia: Blood glucose down to 74. Discussed with that she did well by checking his sugar. She says that she has just learned to do that recently as of the most recent hospitalization. His appetite has been good. He does appear perhaps his insulin requirement has decreased now that he has not been on the potent steroids he had been receiving in [facility]. He is still on 80 mg prednisone. At this time we will de-escalate his insulin dose to 7.5 units. Would even consider reassessment whether he actually needs Trulicity which he receives on a weekly basis on being the last dose. Status: Acute Code(s): E16.2 - Hypoglycemia, unspecified (3) LINEN WORKER vasculitis: Continue prednisone. Follow-up with neurology in office. Status: Acute Code(s): I77.6 - Arteritis, unspecified (4) Giant cell arteritis: Diagnosed by biopsy at [facility]. As above. Status: Acute Code(s): M31.6 - Other giant cell arteritis (5) NITA (acute kidney injury): Mild acute kidney injury: Not entirely clear cause. Denies NSAID use c urrently, although used in the past for episodes of gout. Perhaps due to mild dehydration, possibly secondary to increased urination with diabetes. Will monitor intake output. Has received fluid challenge. Reassess renal function. Status: Acute Code(s): N17.9 - Acute kidney failure, unspecified Attestations Medical Necessity Statement*: Place in observation. Coding Level of Care Code Acute Rubber Mill Operator for Meagan Fwleon Diagnoses Generalized weakness R53.1 Hypoglycemia E16.2 LINEN WORKER vasculitis I77.6 Giant cell arteritis M31.6 NITA (acute kidney injury) N17.9
--- NOTE | 2019-06-30 19:34 | ECG_ITS ---
Measurements Intervals [place] Rate: 65 P: 39 NC: 179 QRS: 72 QRSD: 96 T: 76 QT: 402 QTc: 421 SINUS RHYTHM LOW QRS VOLTAGE IN PRECORDIAL LEADS [QRS DEFLECTION < 1.0 mV IN CHEST LEADS] Compared to ECG 06/30/2019 18:04:08 Sinus bradycardia no longer present Electronically Signed On 06-30-2019 20:20:34 CDT by Augustina Nelson M.D. [email or web address]
--- NOTE | 2019-06-30 19:40 | PC.NURSE ---
Lying supine in bed. Up to bedside with assist of 2 to void. Weak. Will monitor.
[2019-06-30 19:41] LABS: Troponin 5 6HR 8.45 ng/mL (0-15)
[2019-06-30 19:48] LABS: Troponin 5 6HR Delta -3.55 ng/L (0-12)
[2019-06-30] MEDS: atorvastatin 40 mg Tablet PO (22:53)
--- NOTE | 2019-06-30 23:10 | PC.NURSE ---
Emptied patient's urinal. Voided clear yellow urine. States, I tried hitting the call light but it never came on. This nurse showed patient where to hit the call light and had him do it while this nurse was in there. States, Oh, I was just hitting the wrong button. Denies complaints at this time. Will monitor.
[2019-07-01] VITALS: BP 120/64; PULSE 52; RESP 12; O2SAT 97
--- NOTE | 2019-07-01 02:29 | PC.NURSE ---
IV out. Catheter intact. Dressing applied. Patient requesting not to be stuck. I've been stuck so many times I'm just gun shy. This nurse explained to patient that staff would attempt to get someone with the ultra sound to come and attempt to restart the IV. States, I'd appreciate that.
--- NOTE | 2019-07-01 03:35 | PC.NURSE ---
CELL BUILDER here to attempt IV start on patient. Attempted x2 to start IV; however, was unsuccessful. Dressing's applied. Patient refusing to let anyone else attempt. Has also refused to have lab drawn. Dr. Alejo notified. Will monitor.
[2019-07-01 03:54] VITALS: BP 149/81; PULSE 53; RESP 14; TEMP 36.6; O2SAT 98
--- NOTE | 2019-07-01 06:28 | PC.NURSE ---
Monitor showing SB after patient went to sleep. No ectopy noted. Will monitor.
[2019-07-01 07:59] VITALS: BP 131/69; PULSE 52; RESP 18; TEMP 36.3; O2SAT 100
[2019-07-01] MEDS: aspirin 81 mg Chew Tablet PO (08:44)
[2019-07-01] MEDS: famotidine 20 mg Tablet PO (08:44)
[2019-07-01] MEDS: predniSONE 20 mg Tablet 80 MG PO (08:44)
[2019-07-01 09:04] VITALS: PULSE 96; O2SAT 98
[2019-07-01] MEDS: insulin nph human 100 units/1 mL 7.5 UNIT SUBCUT (09:33)
[2019-07-01 09:36] LABS: Glucose Point of Care 124 mg/dL (70-110)
--- NOTE | 2019-07-01 09:47 | P.DS_ITS ---
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 He reports after discharge from [facility] he has overall been feeling significantly better. Has been more active and has been walking with a walker. He woke up overnight unable to sleep and was told to take melatonin to help him over at [facility], so he did, he took 2 tablets, then this morning he woke up generally weak, having trouble to get out from bed, having trouble even putting in his false teeth. He was uncoordinated, but otherwise denies particular complaints, had no vertigo. He had difficulty sitting upright. 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 He also received Trulicity last . First thing his did was check his blood glucose, and reports it was as low at 74. He was very slow to improve, so she was concerned and brought him to the hospital. He also has history of orthostatic hypotension, and she was concerned about that as well. They do deny that he had any issues with his appetite, and has been eating and drinking very well. He also has been urinating a good amount. They returned from [place], however, deny exposure to any suspected COVID cases. He has been afebrile. In ER is without leukocytosis. Bradycardic, which his reports is a chronic thing, and has been asymptomatic. He has mild leukocytosis of 13.6 suspected due to steroid. He has no chest pain. EKG without suggestion of ischemia, with sinus bradycardia, no block. Troponin not elevated. UA unremarkable, urine drug screen unremarkable. Head CT without acute findings. Chest x-ray showing atherosclerosis. TSH is normal. Blood glucose 107. He received a bolus of IV fluid. His orthostatic blood pressures were checked, and were 147/74, heart rate 64 supine, 137/76 heart rate 56 sitting up, 142/71 heart rate 64 standing. He received 1 L fluid bolus in ER. We had cut down his Novolin dose to 7.5, and will decrease Trulicity dose to 0.75. Discussed with him and his to continue measuring his blood glucose, and hold insulin in case sugar is low again. He was not orthostatic after fluid and administration, although had history of orthostatic symptoms previously. In the hospital hip without a little less than 3 L of urine, without a whole lot of glucose in the urine noted on admission. 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 We will also decrease his melatonin dose to 1 tablet as needed. This morning he is feeling well and is ready to leave the hospital. Due to mild acute kidney injury incidentally noted, allopurinol is held currently. Please help him resume this when safe. Please follow renal function reassessment in 3 days. He will be seen in our neurology clinic after his discharge today. Physical Exam Const: COMMON NORMALS: no apparent distress and oriented x3 OTHER: Very pleasant, hard of hearing gentleman, sitting up in bed. HENMT: COMMON NORMALS: oropharynx normal Neck/C-Spine: COMMON NORMALS: no JVD Resp: COMMON NORMALS: normal respiratory effort and clear to auscultation bilaterally AUSCULTATION: clear to auscultation bilaterally Cardio: COMMON NORMALS: no JVD, regular rhythm, S1 normal heart sound, S2 normal heart sound and no murmurs RATE: bradycardic RHYTHM: regular rhythm HEART SOUNDS: S1 normal and S2 normal GI: COMMON NORMALS: normal to inspection, nondistended, normoactive bowel sounds, soft to palpation and non-tender PALPATION: Yes soft Extremity: COMMON NORMALS: no joint enlargement and no pedal edema Neuro: COMMON NORMALS: oriented x3 and moves all extremities OTHER: His sensation and power are full and intact. He has no neglect. There is no drift. No dysmetria on FNF. Visual brown are full to confrontation. No nystagmus. Skin: COMMON NORMALS: no rashes or lesions noted GENERAL SKIN EXAM: no rashes or lesions noted Discharge Data Data Completed and Pending: Completed Studies During Hospitalization Category Date Time Status CT head wo con* [id number] Urgent Cat Scan 06/30/19 13:32 Completed XR chest 1V abimael ble [id number] Stat Exams 06/30/19 13:32 Completed Pending at discharge Category Date Time Status Complete Blood Co unt w/Auto AM LABS Lab 07/01/19 04:00 Ordered Comprehensive Met abolic Panel AM LA BS Lab 07/01/19 04:00 Ordered Comprehensive Met abolic Panel AM LA BS Lab 07/02/19 04:00 Ordered Comprehensive Met abolic Panel AM LA BS Lab 07/03/19 04:00 Ordered Magnesium AM LABS Lab 07/01/19 04:00 Ordered Labs from last 24 hours 07/01/19 06/30/19 06/30/19 08:29 19:07 14:50 WBC RBC Hgb Hct MCV MCH MCHC RDW Plt Count MPV Neut % (Auto) Lymph % (Auto) [place] % (Auto) Eos % (Auto) Baso % (Auto) Neut # (Auto) Lymph # (Auto) [place] # (Auto) Eos # (Auto) Baso # (Auto) Nucleated RBC % (a uto) Nucleated RBCs # PT INR Specimen Type Sample Site ABG pH ABG pCO2 ABG pO2 ABG HCO3 ABG Base Excess Nadir Test Hematocrit O2 Delivery Device FiO2 Flour Mixer ID Sodium Potassium Chloride Carbon Dioxide Anion Gap BUN Creatinine Glucose POC Glucose 124 Calculated Osmolal ity Calcium Magnesium Total Bilirubin AST ALT Alkaline Phosphata se Creatine Kinase Troponin I 6 Hour 8.45 Troponin I Hi Sens Del -3.55 L Troponin T Baselin e Troponin T 120 Min [place] 10.14 Delta Troponin T -1.86 L Total Protein Albumin Globulin TSH Urine Color Urine Appearance Urine pH Ur Specific Gravit y Urine Protein Urine Glucose (UA) Urine Ketones Urine Blood Urine Nitrate Urine Bilirubin Urine Urobilinogen Ur Leukocyte Darling ase Urine RBC Urine WBC Ur Squamous Epith Cells Urine Bacteria Urine Mucus Urine Opiates Scre en Ur Barbiturates Sc reen Ur Phencyclidine S crn Ur Amphetamines Sc reen U Benzodiazepines Scrn Urine Cocaine Scre en U Marijuana (THC) Screen Ethyl Alcohol 06/30/19 06/30/19 06/30/19 14:27 13:59 13:59 WBC RBC Hgb Hct MCV MCH MCHC RDW Plt Count MPV Neut % (Auto) Lymph % (Auto) [place] % (Auto) Eos % (Auto) Baso % (Auto) Neut # (Auto) Lymph # (Auto) [place] # (Auto) Eos # (Auto) Baso # (Auto) Nucleated RBC % (a uto) Nucleated RBCs # PT INR Specimen Type Arterial Sample Site Radial, left ABG pH 7.50 H ABG pCO2 32.1 L ABG pO2 80.0 ABG HCO3 24.9 ABG Base Excess 2.3 H Nadir Test Pos Hematocrit 47.2 O2 Delivery Device None FiO2 21.0 Flour Mixer ID Ah Sodium Potassium Chloride Carbon Dioxide Anion Gap BUN Creatinine Glucose POC Glucose Calculated Osmolal ity Calcium Magnesium Total Bilirubin AST ALT Alkaline Phosphata se Creatine Kinase Troponin I 6 Hour Troponin I Hi Sens Del Troponin T Baselin e Troponin T 120 Min [place] Delta Troponin T Total Protein Albumin Globulin TSH Urine Color Yellow Urine Appearance Clear Urine pH 5.0 Ur Specific Gravit y 1.020 Urine Protein Neg Urine Glucose (UA) Norm Urine Ketones Negative Urine Blood Neg Urine Nitrate Negative Urine Bilirubin Neg Urine Urobilinogen Norm Ur Leukocyte Darling ase Negative Urine RBC None Urine WBC None Ur Squamous Epith Cells 0-4 H Urine Bacteria Trace Urine Mucus Trace Urine Opiates Scre en Negative Ur Barbiturates Sc reen Negative Ur Phencyclidine S crn Negative Ur Amphetamines Sc reen Negative U Benzodiazepines Scrn Negative Urine Cocaine Scre en Negative U Marijuana (THC) Screen Negative Ethyl Alcohol 06/30/19 06/30/19 06/30/19 12:55 12:55 12:55 WBC RBC Hgb Hct MCV MCH MCHC RDW Plt Count MPV Neut % (Auto) Lymph % (Auto) [place] % (Auto) Eos % (Auto) Baso % (Auto) Neut # (Auto) Lymph # (Auto) [place] # (Auto) Eos # (Auto) Baso # (Auto) Nucleated RBC % (a uto) Nucleated RBCs # PT 12.60 INR 0.94 Specimen Type Sample Site ABG pH ABG pCO2 ABG pO2 ABG HCO3 ABG Base Excess Nadir Test Hematocrit O2 Delivery Device FiO2 Flour Mixer ID Sodium 140 Potassium 4.1 Chloride 100 Carbon Dioxide 27 Anion Gap 17.1 BUN 23 Creatinine 1.3 H Glucose 107 POC Glucose Calculated Osmolal ity 287 Calcium 9.6 Magnesium 2.5 H Total Bilirubin 0.5 AST 19 ALT 36 Alkaline Phosphata se 81 Creatine Kinase 27 L Troponin I 6 Hour Troponin I Hi Sens Del Troponin T Baselin e 12 Troponin T 120 Min [place] Delta Troponin T Total Protein 5.6 L Albumin 4.2 Globulin 1.4 TSH 3.85 Urine Color Urine Appearance Urine pH Ur Specific Gravit y Urine Protein Urine Glucose (UA) Urine Ketones Urine Blood Urine Nitrate Urine Bilirubin Urine Urobilinogen Ur Leukocyte Darling ase Urine RBC Urine WBC Ur Squamous Epith Cells Urine Bacteria Urine Mucus Urine Opiates Scre en Ur Barbiturates Sc reen Ur Phencyclidine S crn Ur Amphetamines Sc reen U Benzodiazepines Scrn Urine Cocaine Scre en U Marijuana (THC) Screen Ethyl Alcohol < 10 06/30/19 12:55 WBC 13.6 H RBC 5.53 H Hgb 16.5 Hct 51.4 MCV 92.9 MCH 29.8 MCHC 32.1 RDW 13.2 Plt Count 278 MPV 9.8 Neut % (Auto) 79.9 Lymph % (Auto) 12.3 [place] % (Auto) 6.2 Eos % (Auto) 0.3 Baso % (Auto) 0.1 Neut # (Auto) 10.9 H Lymph # (Auto) 1.7 [place] # (Auto) 0.8 Eos # (Auto) 0.0 Baso # (Auto) 0.0 Nucleated RBC % (a uto) 0 Nucleated RBCs # 0.0 PT INR Specimen Type Sample Site ABG pH ABG pCO2 ABG pO2 ABG HCO3 ABG Base Excess Nadir Test Hematocrit O2 Delivery Device FiO2 Flour Mixer ID Sodium Potassium Chloride Carbon Dioxide Anion Gap BUN Creatinine Glucose POC Glucose Calculated Osmolal ity Calcium Magnesium Total Bilirubin AST ALT Alkaline Phosphata se Creatine Kinase Troponin I 6 Hour Troponin I Hi Sens Del Troponin T Baselin e Troponin T 120 Min [place] Troponin T Total Protein Albumin Globulin TSH Urine Color Urine Appearance Urine pH Ur Specific Gravit y Urine Protein Urine Glucose (UA) Urine Ketones Urine Blood Urine Nitrate Urine Bilirubin Urine Urobilinogen Ur Leukocyte Darling ase Urine RBC Urine WBC Ur Squamous Epith Cells Urine Bacteria Urine Mucus Urine Opiates Scre en Ur Barbiturates Sc reen Ur Phencyclidine S crn Ur Amphetamines Sc reen U Benzodiazepines Scrn Urine Cocaine Scre en U Marijuana (THC) Screen Ethyl Alcohol Vitals: Last Vital Signs Temp 97.3 F L 07/01/19 07:59 Pulse 96 07/01/19 09:04 Resp 18 07/01/19 07:59 BP 131/69 07/01/19 07:59 Pulse Ox 98 07/01/19 09:04 Discharge Plan Discharge Patient Disposition: Home, Self-Care Condition: Stable Prescriptions: New Trulicity 0.75 mg/0.5 mL pen injector 0.75 mg SUBCUT .Weekly Qty: 1 RF: 0 Continued prednisone 20 mg tablet 80 mg PO DAILY RF: 0 famotidine 20 mg Tablet 20 mg PO DAILY RF: 0 aspirin 81 mg Tablet,Chewable 81 mg PO DAILY RF: 0 calcium carbonate-vitamin D3 [Oyster Shell Calcium-Vit D3] 500 mg(1,250mg) - 200 unit Tablet 1 tab PO DAILY RF: 0 atorvastatin 40 mg tablet 40 mg PO BEDTIME RF: 0 Changed melatonin 3 mg Tablet 3 mg PO BEDTIME PRN (Reason: Sleep) Qty: 0 RF: 0 Novolin N Flexpen 100 unit/mL (3 mL) Insulin Pen 7.5 unit SUBCUT DAILY Qty: 0 RF: 0 Held allopurinol 100 mg tablet 100 mg PO DAILY RF: 0 Hold Instructions: Resume on 07/29/19. Discontinued Trulicity 1.5 mg/0.5 mL Pen Injector 1.5 mg SUBCUT DIRECTED RF: 0 Discharge Orders: Discharge Order (Routine); Ordered 07/01/19 Ordered By: Ernst Wei Other Ambulatory Orders: Basic Metabolic Panel (Routine) Timeframe: 3 Days Facility: [facility] - Location: Lab - Main Lab Ordered By: Ernst Wei Referrals: Lidia Nuñez MD [Physician] - 07/01/19 9:40 am Iban Ball DO [Family Provider] - Cristina Vann PA [Primary Care Provider] - (You have an follow-up appointment with Cristina Vann on July 06 at 1:00p.m. If, you have any questions or need to reschedule. Please, call ) Discharge Diet: Advance as tolerated, Cardiac and Diabetic Discharge Activity: Increase activity as tolerated Patient Instructions: Confusion, Altered Mental Status (ED) Activity Restrictions/Additional Instructions: Please continue to measure your blood glucose 4 times daily, and record values to bring to your appointment. Hold insulin in case glucose is persistently low, 70-80 or below. Continue to measure your heart rates and blood pressures 3 times daily, record values to bring to your appointment. Avoid dehydration. Discuss with your primary care doctor regarding reassessment for possible polyuria when you have not received IV fluids to consider this as possible cause of your orthostatic blood pressure. Due to mild acute kidney injury, allopurinol at this time is held. Please discuss with your primary care doctor when it is safe to resume. Have your primary care doctor follow-up on renal function. Discharge Attestations Time Spent in Discharge Care*: greater than 30 min Status at Discharge: Cognitive status at discharge: cognitively intact , Behavioral status at discharge: cooperative , Quality Metrics Clinical Quality Measures During this hospital stay, did patient experience: None Coding Level of Care Code Acute Oracle E Business Developer for Meagan Fwd Diagnoses Generalized weakness R53.1 Hypoglycemia E16.2 SECURITY AND PRIVACY CONSULTANT vasculitis I77.6 Giant cell arteritis M31.6 NITA (acute kidney injury) N17.9
[2019-07-01 09:53] LABS: Basophils % 0.1 %; Eosinophils % 0.1 %; Hemoglobin 15.1 g/dL (11.7-16.6); Lymphocytes # 1.2 10^3/uL (0.8-4.8); Lymphocytes % 6.2 %; Mean Corpuscular HGB Conc 32.1 g/dL (30.0-36.0); Mean Corpuscular Hemoglobin 29.4 pg (28.0-34.0); Mean Corpuscular Volume 91.6 fL (80-94); Mean Platelet Volume 9.5 fL (7.4-10.4); Monocytes # 0.8 10^3/uL (0.2-0.9); Monocytes % 4.2 %; Neutrophils # 16.6 10^3/uL (1.8-7.7); Neutrophils % 88.5 %; Nucleated Red Blood Cells % 0 %; Platelet Count 259 10^3/cmm (130-400); Red Blood Count 5.13 10^6/uL (4.1-5.3); White Blood Count 18.7 10^3/uL (4.0-10.0)
[2019-07-01 10:09] LABS: Alanine Aminotransferase 32 U/L (0-41); Albumin Level 3.6 g/dL (3.5-5.2); Alkaline Phosphatase 73 IU/L (40-130); Anion Gap 14.7 (5-19); Aspartate Amino Transferase 14 U/L (0-40); Blood Urea Nitrogen 17 mg/dL (8-23); Calcium 9.4 mg/dL (8.5-10.5); Carbon Dioxide 27 mmol/L (22-29); Chloride 98 mmol/L (98-107); Globulin 1.8 g/dL (1.3-4.6); Glucose 180 mg/dL (65-115); Magnesium 2.1 mg/dL (1.7-2.3); Osmolality Calculated 283 mOsm/kg (285-295); Potassium 3.7 mmol/L (3.5-5.1); Sodium 136 mmol/L (136-145); Total Bilirubin 0.6 mg/dL (0.15-1.2); Total Protein 5.4 g/dL (6.6-8.7)
[2019-07-01 10:12] VITALS: BP 131/69; PULSE 96; RESP 18; TEMP 36.3; O2SAT 98
== END 2019-07-01 10:50 | disposition home health service (06) ==
LOC: ER 15:22 → CSU 16:56
PROVIDERS: Admitting Provider Internal Medicine; Emergency Provider Emergency Medicine; Family Provider Family Medicine; PCP Physician Assistant; Visit Provider Internal Medicine
DX: R53.1 Weakness (principal); E16.2 Hypoglycemia, unspecified; M31.6 Other giant cell arteritis; N17.9 Acute kidney failure, unspecified; Z79.82 Long term (current) use of aspirin; I10 Essential (primary) hypertension; C61 Malignant neoplasm of prostate; Z82.49 Family history of ischemic heart disease and other diseases of the circulatory system; Z87.891 Personal history of nicotine dependence
CPT/HCPCS: 12345; 36415; 36416; 36600; 70450; 71045; 80053; 80306; 80307; 81001; 82550; 82803; 82962; 83735; 84443; 84484; 85025; 85610; 90471; 90686; 93005; 96360; 96361; 96372; 99283; 99285; G0378; J1815; J7030; J7512

== ENCOUNTER 2019-07-04 11:29 | Inpatient (IN) | payer MEDICARE, SELFPAY ==
[2019-07-04] VITALS (11 sets, daily range): BP systolic 127–156; BP diastolic 68–88; PULSE 44–68; RESP 16–18; TEMP 36.5–36.8; O2SAT 92–99; BMI 27.5
--- NOTE | 2019-07-04 11:32 | ED_ITS ---
Entered by Aurelia Reilly, acting as scribe for Iban Ball DO HPI - General Adult General: Chief complaint: General Medical Stated complaint: AMS Time Seen by Provider: 07/04/19 11:31 History of Present Illness: HPI narrative: 79 yo male presents with altered mental status. Pts called EMS because pt fell and she couldn't get him out of the floor. Pt has been confused and having issues moving his extremities. Pt was discharged from [facility] 2 weeks ago. Per EMS pt has had some Afib but doesn't have a history of it. MD complaint: AMS Associated symptoms: Deny chest pain, dyspnea, malaise, nausea, rash or vomiting Review of Systems Const: Denies: fever, chills, body aches, change in appetite, fatigue or malaise ENMT: Denies: throat pain, ear pain, nasal discharge or nasal congestion Card: Denies: chest pain, edema, shortness of breath on exertion or shortness of breath when lying down Resp: Denies: shortness of breath, productive cough or non-productive cough GI: Denies: abdominal pain, nausea, vomiting, vomiting blood, coffee grounds in vomit, diarrhea, constipation, bloating, blood in stool or black tarry stool : Denies: flank pain, painful urination, urinary frequency or urinary urgency Skin/Breast: Denies: rash or itching PFSH ED PFSH: Medical History (Updated 07/05/19 @ 14:25 by Iban Ball DO) 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 Gout Hyperlipidemia -has known hx of high cholesterol though not on statins -lipid panel; on statin Hypertension -has known hx of borderline HTN -VSS; continue to monitor -BP controlled without intervention Prostate cancer Surgical History H/O prostatectomy H/O rhinoplasty Hx of transurethral resection of prostate Family History Father ALS (amyotrophic lateral sclerosis) Sister Dementia Alzheimer's dementia Mother Cancer Breast cancer Other CAD (coronary artery disease) Denies family history of Hypertension Stroke Social History Smoking and tobacco status: never smoked Quit status (tobacco): has quit using tobacco Year quit tobacco: quit in his 20s Alcohol intake: current Alcohol intake frequency: holidays/special occasions only Household members: spouse History of recent travel: No Physical Exam Const: COMMON NORMALS: no apparent distress GENERAL APPEARANCE: cooperative and comfortable ORIENTATION/CONSCIOUSNESS: Yes awake, Yes oriented to person, Yes oriented to place and Yes oriented to time HENMT: COMMON NORMALS: normocephalic, head/scalp atraumatic, hearing grossly normal bilaterally, external ears normal, EAC's normal, TM's normal bilaterally, nasal mucous membranes and turbinates normal, moist oral mucous membranes and oropharynx normal HEAD & SCALP: normocephalic and atraumatic NOSE: nasal mucous membranes and turbinates normal EXTERNAL EAR: Yes external ears normal EXTERNAL AUDITORY CANAL: EAC's normal TYMPANIC MEMBRANE: TM's normal bilaterally Eye: COMMON NORMALS: PERRL, EOMs intact bilaterally, conjunctivae normal and no scleral icterus CONJUNCTIVA: Yes conjunctivae normal PUPIL: Yes PERRL Neck/C-Spine: COMMON NORMALS: full ROM, no lymphadenopathy, supple and no JVD Lymph: LYMPHATIC: no lymphadenopathy noted and no lymphedema noted Resp: COMMON NORMALS: normal respiratory effort, no retractions, no use of accessory muscles and clear to auscultation bilaterally AUSCULTATION: clear to auscultation bilaterally Cardio: COMMON NORMALS: no JVD, regular rate, regular rhythm and no murmurs RATE: regular rate RHYTHM: regular rhythm GI: COMMON NORMALS: soft to palpation and no hepatosplenomegaly AUSCULTATION: Yes normoactive bowel sounds PALPATION: Yes soft, No tender, No guarding and Yes no hepatosplenomegaly Extremity: COMMON NORMALS: normal to inspection, normal capillary refill, no clubbing, cyanosis or edema, no calf tenderness and no pedal edema Neuro: SENSORIUM/ORIENTATION: Yes oriented to person, Yes oriented to place and Yes oriented to time OTHER: Nonfocal generalized weakness. Skin: COMMON NORMALS: no rashes or lesions noted GENERAL SKIN EXAM: no rashes or lesions noted Course Vital Signs: Vital signs: Vital Signs Temperature 97.9 F 07/05/19 12:00 Pulse Rate 82 07/05/19 12:00 Respiratory Rate 22 H 07/05/19 12:00 Blood Pressure 119/73 07/05/19 12:00 Pulse Oximetry 93 07/05/19 11:16 MDM - General Adult MDM Narrative: Medical decision making narrative: Patient is just generally very weak he was recently at [facility] for giant cell arteritis was discharged home that time they had talked to him about going to group home he declined the family just cannot manage him in the home. Organ to go ahead and put him on observation have PT and OT assessments look at getting him transferred to a group home I have asked social workers to begin on this process. Additionally due to the recent Kovic 19 outbreak we will get him swabbed since he had traveled to [place]. Some of the nursing homes of indicated there will require a negative swab before excepting the patient. Important to note the patient has no respiratory symptoms at this time. Lab Data: Labs: Lab Results 07/04/19 07/04/19 Range/Units 11:56 11:56 WBC 14.8 H (4.0-10.0) 10^3/ uL RBC 5.51 H (4.1-5.3) 10^6/u L Hgb 16.3 (11.7-16.6) g/dL Hct 52.4 H (42.0-52.0) % MCV 95.1 H (80-94) fL MCH 29.6 (28.0-34.0) pg MCHC 31.1 (30.0-36.0) g/dL RDW 13.3 (12.1-15.1) % Plt Count 240 (130-400) 10^3/c mm MPV 9.8 (7.4-10.4) fL Neut % (Auto) 79.4 % Lymph % (Auto) 12.5 % [place] % (Auto) 7.0 % Eos % (Auto) 0.3 % Baso % (Auto) 0.1 % Neut # (Auto) 11.7 H (1.8-7.7) 10^3/u L Lymph # (Auto) 1.8 (0.8-4.8) 10^3/u L [place] # (Auto) 1.0 H (0.2-0.9) 10^3/u L Eos # (Auto) 0.0 (0.0-0.8) 10^3/u L Baso # (Auto) 0.0 (0.0-0.1) 10^3/u L Nucleated RBC % (a uto) 0 % Nucleated RBCs # 0.0 /100WBC Sodium 134 L (136-145) mmol/L Potassium 3.7 (3.5-5.1) mmol/L Chloride 100 (98-107) mmol/L Carbon Dioxide 22 (22-29) mmol/L Anion Gap 15.7 (5-19) BUN 25 H (8-23) mg/dL Creatinine 1.0 (0.7-1.2) mg/dL Glucose 99 (65-115) mg/dL Calculated Osmolal ity 275 L (285-295) mOsm/k g Calcium 9.6 (8.5-10.5) mg/dL Total Bilirubin 0.5 (0.15-1.2) mg/dL AST 24 (0-40) U/L ALT 52 H (0-41) U/L Alkaline Phosphata se 72 (40-130) IU/L Creatine Kinase 34 L (39-308) U/L Total Protein 5.8 L (6.6-8.7) g/dL Albumin 3.6 (3.5-5.2) g/dL Globulin 2.2 (1.3-4.6) g/dL Discharge Plan Discharge Patient Disposition: Admitted As Inpatient Admit Provider: Rod Duran Clinical Impression: Generalized weakness, Hypertension, Cerebral arteritis Condition: Stable Referrals: [facility] [Outside] Discharge Date/Time: 07/04/19 14:22 Coding Level of Care Code ED Label Tacker for g Fwd Exam Comprehensive The documentation recorded by the Tommie briceno Kialy, accurately reflects the service I personally performed and the decisions made by Quinn dockery Curtis L, Jul 04, 2019 11:29
--- NOTE | 2019-07-04 11:39 | CTR_ITS ---
PROCEDURE INFORMATION: Exam: CT Head Without Contrast Exam date and time: 07/04/2019 12:00 PM Age: 79 years old Clinical indication: Injury or trauma; Fall; Additional info: Fall, AMS TECHNIQUE: Imaging protocol: Computed tomography of the head without contrast. Total DLP: 907.89 mGy-cm Radiation optimization: All CT scans at this facility use at least one of these dose optimization techniques: automated exposure control; mA and/or kV adjustment per patient size (includes targeted exams where dose is matched to clinical indication); or iterative reconstruction. COMPARISON: CT head wo con* [id number] 06/30/2019 2:08 PM FINDINGS: Brain: Weaver white matter distinction is maintained throughout the brain. No radiographic evidence of intracranial hemorrhage. Prominent perivascular space-Virchow kendra space-at the base of the brain on the right No CT evidence of mass hemorrhage or acute infarction. Ventricles: Ventricles are of normal size and configuration. Bones/joints: Unremarkable. No acute fracture. Sinuses: Visualized sinuses are unremarkable. No fluid levels. Mastoid air cells: Visualized mastoid air cells are well aerated. Soft tissues: Unremarkable. Other findings: No intra or extra-axial masses, lesions or collections. CT/CT head wo con* [id number] IMPRESSION: No acute intracranial process is appreciated. Radiation Dose CTDIVOL = (mGy): DLP = 907.89 (mGy-cm)
--- NOTE | 2019-07-04 11:39 | ECG_ITS ---
Measurements Intervals Emerson Rate: 61 P: 39 NV: 165 QRS: 77 QRSD: 96 T: 35 QT: 411 QTc: 414 SINUS RHYTHM WITH PAC's IN BIGEMINAL PATTERN Compared to ECG 06/30/2019 19:57:07 No significant changes Electronically Signed On 07-04-2019 17:18:19 CDT by Gladys Foley M.D. [email or web address]
[2019-07-04 12:19] LABS: Basophils % 0.1 %; Eosinophils % 0.3 %; Hematocrit 52.4 % (42.0-52.0); Hemoglobin 16.3 g/dL (11.7-16.6); Lymphocytes # 1.8 10^3/uL (0.8-4.8); Lymphocytes % 12.5 %; Mean Corpuscular HGB Conc 31.1 g/dL (30.0-36.0); Mean Corpuscular Hemoglobin 29.6 pg (28.0-34.0); Mean Corpuscular Volume 95.1 fL (80-94); Mean Platelet Volume 9.8 fL (7.4-10.4); Neutrophils # 11.7 10^3/uL (1.8-7.7); Neutrophils % 79.4 %; Nucleated Red Blood Cells % 0 %; Platelet Count 240 10^3/cmm (130-400); Red Blood Count 5.51 10^6/uL (4.1-5.3); Red Cell Distribution Width 13.3 % (12.1-15.1); White Blood Count 14.8 10^3/uL (4.0-10.0)
[2019-07-04 12:38] LABS: Alanine Aminotransferase 52 U/L (0-41); Albumin Level 3.6 g/dL (3.5-5.2); Alkaline Phosphatase 72 IU/L (40-130); Anion Gap 15.7 (5-19); Blood Urea Nitrogen 25 mg/dL (8-23); Calcium 9.6 mg/dL (8.5-10.5); Carbon Dioxide 22 mmol/L (22-29); Chloride 100 mmol/L (98-107); Creatine Phosphokinase 34 U/L (39-308); Globulin 2.2 g/dL (1.3-4.6); Glucose 99 mg/dL (65-115); Osmolality Calculated 275 mOsm/kg (285-295); Potassium 3.7 mmol/L (3.5-5.1); Sodium 134 mmol/L (136-145); Total Bilirubin 0.5 mg/dL (0.15-1.2); Total Protein 5.8 g/dL (6.6-8.7)
[2019-07-04 12:59] LABS: Aspartate Amino Transferase 24 U/L (0-40)
[2019-07-04 14:14] LABS: Add Urine Microscopic? NO
[2019-07-04 14:28] LABS: Bilirubin Urine Neg (NEGATIVE); Blood Urine Neg (Negative); Glucose Urine UA Norm (Normal); Ketones Urine Negative (Negative); Leukocyte Esterase Urine Negative (Negative); Nitrate Urine Negative (Negative); Protein Urine Neg (Negative); Specific Gravity, Urine 1.015 (1.005-1.030); Urine Appearance Clear (CLEAR); Urine Color Yellow (Yellow); Urobilinogen Urine 1 mg/dL (Negative)
--- NOTE | 2019-07-04 16:33 | P.HP_ITS ---
Providers/Chief Complaint Admitting Physician: Rod Duran MD Primary Care Provider: Cristina Vann Chief Complaint: AMS History of Present Illness Josr Kaye is a 79 year old male who is now going on his third hospitalization this month. In reviewing the records, he was diagnosed with cerebral arteritis, on June 10 and had a hospitalization following this at [facility]. 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 He re-presented here on June 29 and was discharged June 30. That hospital stay was for hypoglycemia, generalized weakness. Since that time his daughter reports that he has had memory gaps at times. He has been weaker than usual, and confused. When I visited with Josr, he reported that he believes he fainted today, and had difficulty getting up on his own. He reports he may need rehabilitation, at a half-way facility. I attempted to call his , to obtain further history but her voice mailbox is currently full. The emergency department physician had reported they were concerned he needed skilled care for rehabilitation and that [facility] had suggested this upon his discharge from that hospital. The patient denies any fevers, or vomiting. He reports he feels fine now, but can to become imbalanced quickly. He admits to being confused and having difficulty thinking at times. From my understanding he has been compliant with his medication. I finally was able to visit with his . He does forget to do things frequently, like how his dentures work. He has been not stable on his feet, and did fall this morning but did not have full loss of consciousness. She has been keeping a gait belt on him for the last 2 to 3 days. She reports he is slow to respond at times, with difficult word finding ability. Review of Systems General: Reports: 10 or more systems reviewed and unremarkable except in HPI and below Const: Denies: fever or chills Eyes: Denies: blurry vision ENMT: Denies: throat pain Card: Denies: chest pain Resp: Denies: shortness of breath GI: Denies: abdominal pain : Denies: difficulty urinating Musc: Denies: neck pain Skin/Breast: Denies: rash Neuro: Denies: headache Psych: Denies: depression Endo: Denies: excessive thirst Martinez/Lymph: Denies: easy bruising All/Imm: Denies: hives Medications/Allergies Allergies Allergy/AdvReac Type Severity Reaction Status Date / Time No Known Allergies Allergy Verified 07/04/19 11:38 PFSH Acute PFSH: Medical History (Updated 07/04/19 @ 16:55 by Jacobo Giles MD) 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 Gout Hyperlipidemia -has known hx of high cholesterol though not on statins -lipid panel; on statin Hypertension -has known hx of borderline HTN -VSS; continue to monitor -BP controlled without intervention Prostate cancer Surgical History H/O prostatectomy H/O rhinoplasty Hx of transurethral resection of prostate Family History Father ALS (amyotrophic lateral sclerosis) Sister Dementia Alzheimer's dementia Mother Cancer Breast cancer Other CAD (coronary artery disease) Denies family history of Hypertension Stroke Social History Smoking and tobacco status: never smoked Quit status (tobacco): has quit using tobacco Year quit tobacco: quit in his 20s Alcohol intake: current Alcohol intake frequency: holidays/special occasions only Household members: spouse History of recent travel: No Vitals/I&O/Wt Last Vital Signs Temp 98.0 F 07/04/19 15:42 Pulse 45 L 07/04/19 15:42 Resp 18 07/04/19 15:42 BP 134/74 07/04/19 15:42 Pulse Ox 97 07/04/19 15:42 Weight last 48 hrs Weight 92.079 kg Physical Exam Narrative: EXAM NARRATIVE: General exam is a white male, conversant. HEENT: Pupils equally round. Oropharynx clear. Neck is supple no lymphadenopathy or thyromegaly Cardiovascular regular rate and rhythm without murmur Lungs clear no wheezing or crackles Abdomen is soft with positive bowel sounds. No obvious organomegaly was deferred Extremities no cyanosis clubbing or edema, cap refill brisk Skin no rash Neuro no obvious focal deficits Data : 07/04/19 11:56 07/04/19 11:56 Other data: CT head no acute changes EKG demonstrates sinus rhythm, normal axis, frequent PACs or perhaps atrial bigeminy LFTs are within normal limits CK is normal Urinalysis is normal A&P Assessment and plan (1) Syncope: I cannot confirm this yet from his . 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 At this point close monitoring is indicated. He has had a previous extensive work-up here and at [facility]. Telemetry Orthostatic blood pressures Sedimentation rate Continue prednisone 80 mg daily Status: Acute Code(s): R55 - Syncope and collapse (2) Giant cell arteritis: Continue prednisone 80 mg daily Neurology consultation Saturday. Daughter is significantly worried that he is not responding to treatment, and may need further evaluation. Status: Acute Code(s): M31.6 - Other giant cell arteritis Additional A&P Information Deconditioning history of hypertension Gout Hyperlipidemia History of prostate cancer Full code Lovenox for DVT prophylaxis Attestations Medical Necessity Statement*: Will need less than 2 midnight stay for evaluation of syncope. Time Spent in Patient Care: Greater than 35 minutes Coding Level of Care Code Acute Detention Sergeant for [facility] Diagnoses Syncope R55 Giant cell arteritis M31.6
[2019-07-04 17:39] LABS: Glucose Point of Care 77 mg/dL (70-110)
[2019-07-04] MEDS: enoxaparin 40 mg/0.4 mL Syringe SUBCUT (17:41)
[2019-07-04] MEDS: sodium chloride 0.9% 1,000 ML 75 ML IV (17:42)
[2019-07-04] MEDS: predniSONE 20 mg Tablet 80 MG PO (17:42)
[2019-07-04 18:55] LABS: Anion Gap 15.5 (5-19); Blood Urea Nitrogen 23 mg/dL (8-23); Calcium 9.4 mg/dL (8.5-10.5); Carbon Dioxide 27 mmol/L (22-29); Chloride 99 mmol/L (98-107); Glucose 162 mg/dL (65-115); Osmolality Calculated 286 mOsm/kg (285-295); Potassium 3.5 mmol/L (3.5-5.1); Sodium 138 mmol/L (136-145)
[2019-07-04 19:30] LABS: Erythrocyte Sedimentation Rate 3 mm/hr (0-10)
[2019-07-04] MEDS: atorvastatin 40 mg Tablet PO (20:51)
[2019-07-04 21:24] LABS: Glucose Point of Care 266 mg/dL (70-110)
[2019-07-05] VITALS (9 sets, daily range): BP systolic 112–162; BP diastolic 71–88; PULSE 52–82; RESP 16–22; TEMP 36.2–36.6; O2SAT 93–99
[2019-07-05] MEDS: sodium chloride 0.9% 1,000 ML 75 ML IV (04:26)
[2019-07-05 05:37] LABS: Basophils % 0.1 %; Hematocrit 48.8 % (42.0-52.0); Hemoglobin 15.4 g/dL (11.7-16.6); Lymphocytes # 0.4 10^3/uL (0.8-4.8); Lymphocytes % 3.4 %; Mean Corpuscular HGB Conc 31.6 g/dL (30.0-36.0); Mean Corpuscular Hemoglobin 29.2 pg (28.0-34.0); Mean Corpuscular Volume 92.4 fL (80-94); Mean Platelet Volume 10.1 fL (7.4-10.4); Monocytes # 0.2 10^3/uL (0.2-0.9); Neutrophils # 10.1 10^3/uL (1.8-7.7); Neutrophils % 93.8 %; Nucleated Red Blood Cells % 0 %; Platelet Count 267 10^3/cmm (130-400); Red Blood Count 5.28 10^6/uL (4.1-5.3); Red Cell Distribution Width 13.4 % (12.1-15.1); White Blood Count 10.8 10^3/uL (4.0-10.0)
[2019-07-05 06:41] LABS: Glucose Point of Care 123 mg/dL (70-110)
[2019-07-05] MEDS: calcium carb-vit d 500mg-200unit 1 Tablet 1 EACH PO (08:57)
[2019-07-05] MEDS: aspirin 81 mg Chew Tablet PO (08:58)
[2019-07-05] MEDS: famotidine 20 mg Tablet PO (08:58)
[2019-07-05] MEDS: predniSONE 20 mg Tablet 80 MG PO (08:58)
[2019-07-05 10:48] LABS: Glucose Point of Care 236 mg/dL (70-110)
--- NOTE | 2019-07-05 11:24 | PM.PN ---
Subjective Subjective: Interval history: Josr reports he is doing ok. Reports most of his symptoms occur when he gets up. Agreeable to go to rehab. Medications: Reviewed: Yes Vitals/I&O/Wt Last Vital Signs Temp 97.9 F 07/05/19 11:16 Pulse 82 07/05/19 11:16 Resp 22 H 07/05/19 11:16 BP 119/73 07/05/19 11:16 Pulse Ox 93 07/05/19 11:16 07/04/19 07/05/19 07/05/19 22:59 06:59 14:59 Intake Total 1005 / 1005 360 / 360 Output Total 300 / 300 2400 / 2700 Balance -300 / -300 -1395 / -1695 360 / 360 Weight last 48 hrs Weight 92.079 kg Physical Exam Narrative: EXAM NARRATIVE: General exam is a white male, conversant. Cardiovascular regular rate and rhythm without murmur Lungs clear no wheezing or crackles Abdomen is soft with positive bowel sounds. No obvious organomegaly Extremities no cyanosis clubbing or edema, cap refill brisk Neuro no obvious focal deficits Data : 07/05/19 05:09 07/04/19 18:35 A&P Assessment and plan (1) Syncope: I cannot confirm this yet from his . This could be secondary to sequela from his HOEING ROW BOSS vasculitis, arrhythmia, orthostasis. At this point close monitoring is indicated. He has had a previous extensive work-up here and at [place] demonstrating severe intracranial arterial narrowing. Sedimentation rate was performed and not elevated. Continue prednisone 80 mg daily Telemetry demonstrates some bradycardia, but no pauses or anything to explain his symptoms. He has not been orthostatic on the blood pressures we have here. I suspect after talking with the family and the patient that most of his symptoms occur when he is vertical secondary to worsened blood flow. He has significant arterial narrowing on his MRA from the inflammation that was present secondary to giant cell arteritis. I discussed with his family this may take time to improve on the prednisone. Reduce IV fluids Status: Acute Code(s): R55 - Syncope and collapse (2) Giant cell arteritis: Continue prednisone 80 mg daily Neurology consultation Saturday. Daughter is significantly worried that he is not responding to treatment, and may need further evaluation. Status: Acute Code(s): M31.6 - Other giant cell arteritis Additional A&P Information Deconditioning. Needs senior living facility placement history of hypertension Gout Hyperlipidemia History of prostate cancer Full code Lovenox for DVT prophylaxis Attestations Medical Necessity Statement*: Needs continued hospitalization pending senior living facility placement. Coding Level of Care Code Acute Security Engineer for [facility] Diagnoses Syncope R55 Giant cell arteritis M31.6
[2019-07-05 15:33] LABS: Coronavirus Lab Test PTC NOT DETECTED
[2019-07-05 16:56] LABS: Glucose Point of Care 125 mg/dL (70-110)
[2019-07-05] MEDS: enoxaparin 40 mg/0.4 mL Syringe SUBCUT (17:17)
[2019-07-05] MEDS: atorvastatin 40 mg Tablet PO (20:09)
[2019-07-05] MEDS: sodium chloride 0.9% 1,000 ML 50 ML IV (20:09)
[2019-07-05 21:24] LABS: Glucose Point of Care 247 mg/dL (70-110)
[2019-07-06] VITALS (9 sets, daily range): BP systolic 103–169; BP diastolic 66–91; PULSE 48–68; RESP 16–18; TEMP 36.3–36.9; O2SAT 95–99
[2019-07-06 07:01] LABS: Glucose Point of Care 96 mg/dL (70-110)
[2019-07-06 07:31] LABS: Basophils % 0.1 %; Eosinophils % 0.1 %; Hematocrit 47.5 % (42.0-52.0); Hemoglobin 15.1 g/dL (11.7-16.6); Lymphocytes # 1.1 10^3/uL (0.8-4.8); Mean Corpuscular HGB Conc 31.8 g/dL (30.0-36.0); Mean Corpuscular Hemoglobin 29.4 pg (28.0-34.0); Mean Corpuscular Volume 92.4 fL (80-94); Mean Platelet Volume 9.9 fL (7.4-10.4); Monocytes # 0.9 10^3/uL (0.2-0.9); Monocytes % 5.2 %; Neutrophils # 15.8 10^3/uL (1.8-7.7); Neutrophils % 88.1 %; Nucleated Red Blood Cells % 0 %; Platelet Count 260 10^3/cmm (130-400); Red Blood Count 5.14 10^6/uL (4.1-5.3); Red Cell Distribution Width 13.2 % (12.1-15.1)
[2019-07-06 08:15] LABS: Anion Gap 13.5 (5-19); Blood Urea Nitrogen 15 mg/dL (8-23); Calcium 9.6 mg/dL (8.5-10.5); Carbon Dioxide 29 mmol/L (22-29); Chloride 100 mmol/L (98-107); Glucose 111 mg/dL (65-115); Osmolality Calculated 283 mOsm/kg (285-295); Potassium 4.5 mmol/L (3.5-5.1); Sodium 138 mmol/L (136-145)
[2019-07-06] MEDS: predniSONE 20 mg Tablet 80 MG PO (09:14)
[2019-07-06] MEDS: famotidine 20 mg Tablet PO (09:15)
[2019-07-06] MEDS: calcium carb-vit d 500mg-200unit 1 Tablet 1 EACH PO (09:15)
[2019-07-06] MEDS: aspirin 81 mg Chew Tablet PO (09:16)
--- NOTE | 2019-07-06 16:19 | P.PN_ITS ---
Subjective Subjective: Interval history: Feels tired today, frustrated at not having his hearing aides with him. 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 At this point close monitoring is indicated. He has had a previous extensive work-up here and at [place] demonstrating severe intracranial arterial narrowing. Sedimentation rate was performed and not elevated. Continue prednisone 80 mg daily Telemetry demonstrates some bradycardia, but no pauses or anything to explain his symptoms. He has not been orthostatic on the blood pressures we have here. I suspect after talking with the family and the patient that most of his symptoms occur when he is vertical secondary to worsened blood flow. He has significant arterial narrowing on his MRA from the inflammation that was present secondary to giant cell arteritis. I discussed with his family this may take time to improve on the prednisone. Status: Acute (2) Giant cell arteritis: Continue prednisone 80 mg daily Neurology consultation today with Dr. Nuñez Status: Acute Additional A&P Information Deconditioning. Needs long-term facility placement history of hypertension Gout Hyperlipidemia History of prostate cancer leukocytosis likely 2/2 margination from steroids. Full code Lovenox for DVT prophylaxis Attestations Medical Necessity Statement*: Awaiting improvement in symptoms, neurology evaluation Coding Level of Care Code Acute Biomathematician for [facility] Fwd Diagnoses Syncope R55 Giant cell arteritis M31.6
--- NOTE | 2019-07-06 17:00 | P.CONIM_ITS ---
Providers/Reason For Consult Consulting Physican/Specialty*: Neurology Reason for Consult*: Temporal arteritis, ongoing care Attending Physician: Leigha Castillo MD Primary Care Provider: Cristina Vann History of Present Illness History of Present Illness Josr Kaye is a 79 year old man that I met in early June after onset of his symptoms in mid May and previous hospitalization at [facility]. He has giant cell arteritis affecting both middle cerebral arteries, both carotid arteries and the cavernous sinus and both vertebral arteries at the craniocervical junction. He has moderately severe midline ataxia, anterograde amnesia and apraxia. His symptoms wax and wane with orthostatic aggravation. Recently he has had 2 episodes of losing consciousness and falling while walking. His has been holding onto him but she could not keep him upright and eased him to t he floor with his gait belt. These episodes are unpredictable. He does not actually have demonstrable orthostatic hypotension but these episodes occur more when he is standing up. He is frustrated by his intermittent inability to express himself. His has noticed that he is severely apractic at times to the point that he could not put his teeth in several days ago while he was having an exacerbation. The concern is that he is now 2 weeks into high-dose steroids and continuing to have episodes of worsening. Please refer to my initial consult followed by my more complete evaluation of the patient on 06/11/2019. He presented with ataxia, memory difficulty, orthostatic worsening of symptoms and syncope. He had multiple vascular stenosis intracranially including bilateral vertebral, bilateral carotid in the cavernous sinus and multiple stenoses in the middle cerebral arteries bilaterally. I attempted to obtain spinal fluid but was unable and had to transfer him to [place]. Lumbar puncture was completed 06/12 at [place] and showed 27 nucleated cells in tube 1 and 31 nucleated cells in tube 4 (93% lymphs). Protein 73 glucose 64. He had negative laboratory work-up with HIV, RPR, ESR 11 and CRP 8 prior to steroid treatment. MONTY/rheumatoid factor, SPEP, CSF BRI negative. Temporal artery biopsy showed giant cells consistent with giant cell arteritis. Ophthalmology found no abnormalities on dilated funduscopic exam. He was treated with 1 g of Solu-Medrol IV daily for 3 days and then started on 80 mg of prednisone. Repeat spinal fluid exam showed no nucleated cells. Stud ies performed at [place] documented the same findings of intracranial vascular stenosis that were seen here. Throughout his stay at [place] he demonstrated orthostatic hypotension that was mild but severely symptomatic. He had transthoracic echocardiogram with a bubble study that showed ASD/PFO. They recommended follow-up MRA in 2 weeks. 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 He was very hard of hearing which is baseline. His gait was wide-based. It was recommended that he should have PET/CT fluorodeoxyglucose skull to thigh to monitor response to treatment and look for involvement of large vessels in the chest. He was discharged June 22 on 80 mg of prednisone with insulin to cover for hyperglycemia. He has been hospitalized twice at [facility] since then. I talked with Dr. Wei and advised that the patient stop at my office when he was discharged the last time but somehow he ended up with an appointment today instead of seeing me last week. He is back in the hospital because his could not take care of him at home when he fell multiple times. He has been weak and confused. He has had worsening ataxia to the point that his has had to use a gait belt with him at home. Prior to his hospitalization at [place] he was walking without a walker although he had significant midline ataxia. He does not have focal weakness. Review of Systems General: Reports: 10 or more systems reviewed and unremarkable except in HPI and below Const: Reports: malaise; Denies: fever or change in weight Eyes: Denies: change in vision ENMT: Reports: disequilibrium; Denies: painful swallowing or change in hearing Card: Denies: chest pain, palpitations, irregular heart rhythm, edema or shortness of breath on exertion Resp: Denies: shortness of breath GI: Denies: abdominal pain, nausea or difficulty swallowing : Reports: urinary frequency and urinary urgency Musc: Denies: joint swelling, muscle cramps or muscle weakness Skin/Breast: Denies: rash Neuro: Reports: weakness in extremities, lack of coordination, confusion and behavioral changes; Denies: headache, vertigo, slurred speech or seizure-like activity Psych: Reports: sleeping more; Denies: depression Endo: Reports: excessive urination Meds/Allergies Home Medications and Allergies Home Medications Medication Instructions Recorded Confirmed Type prednisone 20 mg tablet 80 mg PO DAILY 06/09/19 07/04/19 History aspirin 81 mg PO DAILY 06/30/19 07/04/19 History atorvastatin 40 mg PO BEDTIME 06/30/19 07/04/19 History calcium carbonate-vitamin D3 1 tab PO DAILY 06/30/19 07/04/19 History [Oyster Shell Calcium-Vit D3] famotidine 20 mg PO DAILY 06/30/19 07/04/19 History Novolin N Flexpen 7.5 unit SUBCUT DAILY #0 ml 07/01/19 07/04/19 Rx melatonin 3 mg PO BEDTIME PRN #0 tab 07/01/19 07/04/19 Rx Allergies Allergy/AdvReac Type Severity Reaction Status Date / Time No Known Allergies Allergy Verified 07/04/19 11:38 Current Medications Current Medications Generic Name Dose Route Start Last Admin Trade Name Freq PRN Reason Stop Dose Admin Aspirin 81 mg 07/05/19 09:00 07/06/19 09:16 Aspirin Chewable PO 81 mg DAILY FILI Administration Atorvastatin Calcium 40 mg 07/04/19 21:00 07/05/19 20:09 Lipitor PO 40 mg BEDTIME FILI Administration Calcium Carbonate 1 each 07/05/19 09:00 07/06/19 09:15 Oyster Shell 500mg-Vit D 200unit PO 1 each DAILY FILI Administration Enoxaparin Sodium 40 mg 07/04/19 17:00 07/05/19 17:17 Lovenox SUBCUT 40 mg Q24H FILI Administration Famotidine 20 mg 07/05/19 09:00 07/06/19 09:15 Pepcid Tab PO 20 mg DAILY FILI Administration Sodium Chloride 1,000 mls @ 50 mls/hr 07/04/19 17:00 07/05/19 20:09 Sodium Chloride 0.9% IV 50 mls/hr .Q20H FILI Administration Insulin Aspart 0 unit 07/04/19 21:00 07/05/19 21:31 Novolog SUBCUT 3 unit BEDTIME FILI Administration Protocol Insulin Aspart 0 unit 07/04/19 18:00 07/06/19 11:37 Novolog SUBCUT Not Given TIDWM FILI Protocol Prednisone 80 mg 07/05/19 09:00 07/06/19 09:14 Prednisone PO 80 mg DAILY FILI Administration PFSH Acute PFSH: Medical History STRIKE OFF MACHINE OPERATOR vasculitis Giant cell arteritis Gout Hyperlipidemia -has known hx of high cholesterol though not on statins -lipid panel; on statin Hypertension -has known hx of borderline HTN -VSS; continue to monitor -BP controlled without intervention Prostate cancer Surgical History H/O prostatectomy H/O rhinoplasty Hx of transurethral resection of prostate Family History Father ALS (amyotrophic lateral sclerosis) Sister Dementia Alzheimer's dementia Mother Cancer Breast cancer Other CAD (coronary artery disease) Denies family history of Hypertension Stroke Social History Smoking and tobacco status: never smoked Quit status (tobacco): has quit using tobacco Year quit tobacco: quit in his 20s Alcohol intake: current Alcohol intake frequency: holidays/special occasions only Household members: spouse History of recent travel: No Vitals/I&O/Wt Last Vital Signs Temp 97.7 F 07/06/19 15:36 Pulse 68 07/06/19 15:36 Resp 18 07/06/19 15:36 BP 138/84 07/06/19 15:36 Pulse Ox 97 07/06/19 15:36 07/06/19 07/06/19 07/06/19 06:59 14:59 22:59 Intake Total 712 / 712 Output Total 850 / 2250 950 / 950 350 / 1300 Balance -850 / 200 -238 / -238 -350 / -588 Physical Exam Narrative: EXAM NARRATIVE: GENERAL: The patient was [well-nourished] with a[healthy appearance] and [appropriately groomed]. MENTAL STATUS: He is of above average intelligence. He is oriented to himself and situation. His speech is halting and he has trouble finding words. [No difficulty following a complex command]. He exhibited mild circumlocution. After my completion of his exam we sat and talked in his speech improved CRANIAL NERVES: Extraocular movements were full without nystagmus. Both slow pursuit and saccadic eye movements were normal. PERRLA. Face was symmetric at rest and with grimace. [Facial sensation was intact in all three distributions of the fifth cranial nerve bilaterally to touch]. [The masseters were strong bilaterally]. Tongue and palate were midline at rest and with protrusion of the tongue and elevation of the palate. Shoulders were symmetric at rest and with shoulder shrug. MOTOR: There was no drift of the extended arms. Fine movements in the hands were apractic, even the simplest of movements. Toe tapping was slow and apractic. Power was 5/5 in all the muscles of all four extremities tested individually. He does not have focal weakness. SENSATION: [Pin, touch, vibration intact in the four extremities distally]. COORDINATION: Stance was unstable with the eyes open, as well as the eyes closed. He has a wide base standing next to the bed. DEEP TENDON REFLEXES: [2/4 throughout.] [Toes downgoing bilaterally.] GAIT: He was not safe to ambulate and was unsteady at the bedside HEENT: Normocephalic without dysmorphic features. Conjunctivae were not injected and sclerae were nonicteric. Temporal artery biopsy sites healing well NECK: Carotid upstroke was strong bilaterally without bruits. The thyroid was not enlarged and there were no palpable lymph nodes. CHEST: Clear to auscultation. CARDIOVASCULAR: The heart sounds were normal without murmur or gallop. Regular rate and rhythm. Peripheral pulses were 2+ throughout in the distal extremities. EXTREMITIES: There was no edema or cyanosis. The skin was unremarkable. The spine exhibited normal thoracic kyphosis and normal lumbar lordosis without deformities. A&P Assessment and plan (1) Giant cell arteritis: 79-year-old man with multiple intracranial stenosis from giant cell arteritis. He had marked improvement in STRIKE OFF MACHINE OPERATOR inflammation based upon nucleated white cells after he was given IV Solu-Medrol and started on oral prednisone. Unfortunately, the inflammation in multiple cerebral arteries was already present by the time of diagnosis and evolved very rapidly based upon history. It remains to be seen how much clinical improvement he will have with steroids. He has symptomatic orthostasis with minimal changes in his blood pressure on standing because of lack of central blood supply imposed by his multiple artery narrowing. It is probably not safe for him to return home and he is at high risk for a fall. I talked with his by phone. She is overwhelmed by trying to take care of him at home. I am concerned that he will require close monitoring at the halfway and will need a great deal of attention to prevent him from falling. He needs stat MRI and MRA tomorrow to further guide therapy. He needs MRI I of the brain to look for parenchymal changes also to guide therapy. There are reports of using methotrexate and other drugs to minimize steroid use but this gentleman has a problem for which there is no guidance, as he is a case of 1. 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
[2019-07-06] MEDS: sodium chloride 0.9% 1,000 ML 50 ML IV (17:40)
[2019-07-06] MEDS: enoxaparin 40 mg/0.4 mL Syringe SUBCUT (17:41)
[2019-07-06] MEDS: atorvastatin 40 mg Tablet PO (20:35)
[2019-07-06 20:54] LABS: Glucose Point of Care 140 mg/dL (70-110)
[2019-07-06 20:54] LABS: Glucose Point of Care 239 mg/dL (70-110)
[2019-07-06 20:55] LABS: Glucose Point of Care 171 mg/dL (70-110)
[2019-07-07] VITALS (7 sets, daily range): BP systolic 115–143; BP diastolic 61–79; PULSE 52–71; RESP 16–18; TEMP 36.3–36.8; O2SAT 96–99
[2019-07-07 06:32] LABS: Glucose Point of Care 114 mg/dL (70-110)
--- NOTE | 2019-07-07 07:51 | MR_ITS ---
WS: [id number] MRI BRAIN WITHOUT CONTRAST HISTORY: vasculitis COMPARISON: 06/10/2019 TECHNIQUE: Diffusion imaging, multiplanar T1, T2 and FLAIR imaging obtained. New acute diffusion-weighted abnormalities with corresponding ADC map abnormalities involve the infer ior LEFT insular ribbon, posterior medial LEFT temporal lobe cortex and possibly the posterior RIGHT occipital lobe cortex. Mild volume loss. Very minimal chronic microvascular ischemic changes otherwise. Prominent perivascul ar space along the RIGHT inferior basal ganglia. Ventricles and extra-axial spaces are normal. No inferior displacement of cerebellar tonsils. The sella turcica and pituitary gland are unremarkabl e. Posterior fossa is also unremarkable. Dural venous sinuses and [place] demonstrate no abnormality on this unenhanced studies. Paranasal sinuses: Clear. Mastoid air cells: Fluid in the RIGHT mastoid air cells. Calvarium and scalp: Intact. MR/MR head wo con* [id number] IMPRESSION: 1. New, very tiny diffusion-weighted abnormalities in the inferior LEFT insula r ribbon, posterior medial LEFT temporal lobe cortex and the posterior RIGHT oc cipital lobe cortex. Consider embolic source. 2. Mild chronic microvascular ischemic disease.
[2019-07-07] MEDS: predniSONE 20 mg Tablet 80 MG PO (07:59)
[2019-07-07] MEDS: famotidine 20 mg Tablet PO (08:00)
[2019-07-07] MEDS: aspirin 81 mg Chew Tablet PO (08:00)
[2019-07-07] MEDS: calcium carb-vit d 500mg-200unit 1 Tablet 1 EACH PO (08:01)
[2019-07-07 11:11] LABS: Glucose Point of Care 156 mg/dL (70-110)
--- NOTE | 2019-07-07 11:12 | PC.SOCIAL ---
IMM Update IMM given and explained to patient. Copy provided to patient.
--- NOTE | 2019-07-07 11:25 | PM.PN ---
Subjective Subjective: Interval history: no new complaints today,frustrated with apahasia. Planned for MR today, neurology consukt noted. Continues to have dizziness while working with therapy, improving with time. 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 Nuñez Status: Acute Additional A&P Information 1. Giant cell arteritis, multifocal diffuse Currently on prednisone 80mg qd Has been on chronic high dose steroids since > 1 month at this point. Add PJP ppx with Bactrim DS three times a week. Planned for MR today to further guide therapy Appreciate neurology recommendations Dizziness and syncopal episodes at home, will need SNF upon discharge, being worked on with case management at this time, awaiting acceptance. Will need close biweekly f/up with neurology as an outpatient. Continue ASA 81mg po qd + atorvastatin for atherosclerotic disease 2. 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 At this point close monitoring is indicated. He has had a previous extensive work-up here and at [place] demonstrating severe intracranial arterial narrowing. Sedimentation rate was performed and not elevated. Continue prednisone 80 mg daily Telemetry demonstrates some bradycardia, but no pauses or anything to explain his symptoms. He has not been orthostatic on the blood pressures we have here. 3. 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 Blood sugar well controlled at this time 5. H/o gout 6. H/o hyperlipidemia : on atorvastatin 7. History of prostate cancer, currently CHARITY 8. leukocytosis likely 2/2 margination from steroids. Full code Lovenox for DVT prophylaxis Other ppx: Bactrim Tue//Sat for PJP ppx with steroids. Close monitoring of renal funtion and potassium with initiation Updated Change to inpatient status for ongoing investigations and need for close monitoring Attestations Medical Necessity Statement*: Awaiting MR To guide further therapy Coding Level of Care Code Acute Information Technology Architect for g Fwd Diagnoses Syncope R55 Giant cell arteritis M31.6
--- NOTE | 2019-07-07 12:00 | MR_ITS ---
WS: [id number] MRA CAROTID ARTERIES HISTORY: AMS COMPARISON: None available. TECHNIQUE: MRA is performed with and without intravenous gadolinium. MIP and source images are review ed. Study was obtained on 07/07/2019 and also repeated on 07/08/2023 adequate evaluation. Right: Common carotid artery arises normally from the innominate. Normal bifurcation. The distal RIGH T intracranial ICA become significantly narrowed through the cavernous sinus as seen on the recent CT head and MRI brain. Consistent with diffuse wall thickening and high-grade stenosis from vasculitis. Left: Common carotid artery arises from the arch normally. Normal bifurcation. Again noted is a high- grade stenosis, near complete occlusion of the distal LEFT ICA near the cavernous sinus. Consistent w ith circumferential wall thickening and an area of vasculitis and stenosis which has been previously described. No improvement. Subclavian Arteries: Vertebral Arteries: Vertebral arteries proximally are poorly visualized probably due to breathing. Ca rotid arteries through the transverse foramina are normal. Small caliber vertebral arteries beginning at the skull base but they are patent. Small caliber basilar artery. MR/MR angio neck w con* [id number] IMPRESSION: 1. Small caliber distal intracranial carotid arteries as described on prior im aging studies with no improvement. Probably related to vasculitis. 2. Distal vertebral arteries are also very small caliber and similar to the pr ior studies with wall thickening. Also probably related to vasculitis with no i mprovement.
--- NOTE | 2019-07-07 12:00 | MR_ITS ---
WS: [id number] MRA ANGIOGRAPHY [place] HISTORY: AMS COMPARISON: 05/30/2019 TECHNIQUE: 3-D MR angiography is performed of the [place]. All images are reviewed including source images. Again noted is a small caliber distal vertebral arteries through the skull base. RIGHT slightly more atrophic as compared to the LEFT. Small caliber basilar artery also. Similar to the prior studies. Again noted is a very small lumen involving the intracranial carotid arteries through the siphons and supraclinoid region. LEFT is slightly smaller than the RIGHT. No significant improvement. There is d iffuse circumferential wall thickening. No obstruction. Middle cerebral and anterior tibial arteries are patent. There is no aneurysm. Overall the caliber of the vessels is small but patent. Posterior cerebral arteries and the posterior communicating arteries are patent. MR/MR angio head wo con [id number] IMPRESSION: 1. Again noted is a very small caliber cavernous and supraclinoid intracranial carotid arteries with diffuse circumferential wall thickening. Very small delaney nabor patent lumen worse on the LEFT. Similar to the prior study of 05/30/2019 wit hout improvement. Differential includes vasculitis and neurosarcoid. 2. Very small caliber distal vertebral arteries also. Similar to the prior dejah dy.
--- NOTE | 2019-07-07 14:29 | PC.OT ---
OT tx attempted x2. Pt is off the floor at MRI. Plan to resume OT services tomorrow.
--- NOTE | 2019-07-07 16:33 | P.PN_ITS ---
Subjective Subjective: Interval history: No new symptoms today. His dizziness continues to wax and wane as does his mental status. I had a long talk with his by phone and reviewed his MRI findings and the plan. Her concern about taking him home is that he has marked fluctuations in his praxis so that sometimes he can even put his teeth in and he gets so unsteady so unpredictably that he is high risk for a fall. I emphasized that she needs to keep the detention apprised of this fact and I think that he will benefit from rehab at the detention. We talked about the alternative of rehab in a neuro rehab center in [place] and that would be a hardship for the family as they would never see him. His mother of Alzheimer's disease this week. His daughter of complica tions from a kidney stone not 6 months ago. It is been a rough year Vitals/I&O/Wt Last Vital Signs Temp 97.8 F 07/07/19 16:00 Pulse 71 07/07/19 16:00 Resp 18 07/07/19 16:00 BP 115/61 07/07/19 16:00 Pulse Ox 97 07/07/19 15:14 07/07/19 07/07/19 07/07/19 06:59 14:59 22:59 Output Total 550 / 3625 Balance -550 / -1513 Physical Exam Narrative: EXAM NARRATIVE: No change from his exam yesterday. He is hard of hearing but it is possible to communicate. He has slow speech output but he was doing a little better today than he did yesterday. He appears to have full comprehension. He has good questions. He had no focal motor findings. I did not take him for a walk. 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 Again noted is a very small caliber cavernous and supraclinoid intracranial carotid arteries with diffuse circumferential wall thickening. Very small caliber patent lumen worse on the LEFT. Similar to the prior study of 05/30/2019 without improvement. Differential includes vasculitis and neurosarcoid. 2. Very small caliber distal vertebral arteries also. Similar to the prior study.-Dr. Salazar The patient has had waxing and waning of his neurologic symptoms but his MRA does not show any worsening. Plan on repeating MRI brain with and without contrast in a couple of weeks as there is no better way on monitoring his disease activity. His sed rate and CRP were normal at baseline. Discussed with Dr. Castillo Status: Acute (2) Giant cell arteritis: He has several punctate and artery abnormalities consistent with his arteritis. This does indicate ongoing ischemia but on a very small scale. Plan on reducing prednisone to 70 mg daily and I will see him in 2 weeks in the clinic. 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
[2019-07-07 16:50] LABS: Glucose Point of Care 249 mg/dL (70-110)
[2019-07-07] MEDS: sodium chloride 0.9% 1,000 ML 50 ML IV (17:37)
[2019-07-07] MEDS: enoxaparin 40 mg/0.4 mL Syringe SUBCUT (17:39)
[2019-07-07] MEDS: sulfamethoxazole-trimeth DS 160-800 mg Tablet 1 TAB PO (17:45)
[2019-07-07 20:58] LABS: Glucose Point of Care 192 mg/dL (70-110)
[2019-07-07] MEDS: atorvastatin 40 mg Tablet PO (21:20)
[2019-07-08] VITALS (10 sets, daily range): BP systolic 110–142; BP diastolic 63–79; PULSE 48–83; RESP 18–20; TEMP 36.3–36.8; O2SAT 93–99
[2019-07-08 05:30] LABS: Basophils % 0.1 %; Hematocrit 45.1 % (42.0-52.0); Hemoglobin 14.7 g/dL (11.7-16.6); Lymphocytes # 0.9 10^3/uL (0.8-4.8); Lymphocytes % 6.5 %; Mean Corpuscular HGB Conc 32.6 g/dL (30.0-36.0); Mean Corpuscular Hemoglobin 29.8 pg (28.0-34.0); Mean Corpuscular Volume 91.3 fL (80-94); Mean Platelet Volume 10.1 fL (7.4-10.4); Monocytes # 0.7 10^3/uL (0.2-0.9); Monocytes % 4.9 %; Neutrophils # 11.7 10^3/uL (1.8-7.7); Nucleated Red Blood Cells % 0 %; Platelet Count 233 10^3/cmm (130-400); Red Blood Count 4.94 10^6/uL (4.1-5.3); Red Cell Distribution Width 13.4 % (12.1-15.1); White Blood Count 13.3 10^3/uL (4.0-10.0)
[2019-07-08 05:44] LABS: Alanine Aminotransferase 48 U/L (0-41); Albumin Level 3.6 g/dL (3.5-5.2); Alkaline Phosphatase 66 IU/L (40-130); Anion Gap 14.9 (5-19); Blood Urea Nitrogen 15 mg/dL (8-23); Calcium 9.2 mg/dL (8.5-10.5); Carbon Dioxide 22 mmol/L (22-29); Chloride 103 mmol/L (98-107); Globulin 1.6 g/dL (1.3-4.6); Glucose 122 mg/dL (65-115); Osmolality Calculated 280 mOsm/kg (285-295); Potassium 3.9 mmol/L (3.5-5.1); Sodium 136 mmol/L (136-145); Total Bilirubin 0.6 mg/dL (0.15-1.2); Total Protein 5.2 g/dL (6.6-8.7)
[2019-07-08 06:25] LABS: Aspartate Amino Transferase 21 U/L (0-40)
[2019-07-08 06:59] LABS: Glucose Point of Care 110 mg/dL (70-110)
[2019-07-08] MEDS: calcium carb-vit d 500mg-200unit 1 Tablet 1 EACH PO (08:28)
[2019-07-08] MEDS: famotidine 20 mg Tablet PO ×2 (08:28→17:49)
[2019-07-08] MEDS: predniSONE 20 mg Tablet 80 MG PO (08:29)
[2019-07-08] MEDS: aspirin 81 mg Chew Tablet PO (08:29)
--- NOTE | 2019-07-08 09:24 | PC.CHAP ---
Pastoral Care Encounter/Spiritual Assessment Type of Contact [] Declined electro optics engineer visit [] Patient/Family/Request visit [] Outpatient visit [] Follow-up visit [] Physician referral [] Code/Alert [x] Routine visit [] Staff referral [] Actively dying [] Patient sleeping [] Family support [] [] Out of room [] Palliative care [] [] Receiving care in room [] Pre-surgical visit [] Trauma [] Long length of stay [] ICU visit [] Other: Relational/Emotional Strength [x] Patient feels connected with others/family/visitors/staff [] Distress [] Loneliness/isolation [] Abandonment Spirituality of Patient [] Person of [place] [] Attends Denominational of their [place] [x] Believes in Prayer [] Reads Bible or Druze materials [] There are Spiritual issues to be addressed Vacuum Closing Machine Operator Interventions [x] Prayer [x] Active listening [x] Non-anxious presence [x] Spiritual/emotional support [] Crisis/trauma care [] Spiritual counseling [] Bereavement support [] Provided bereavement packet [] Provided Bible/devotional materials [] Provided toy/stuffed animal, coloring book to patient or family member [] Provided Communion [] Anointing/[place] [] Salvation [x] Completed spiritual assessment [] Other: Impact on Illness or Injury [] Angry [] Fearful [] Anxious [] Often cries [] Exhaustion [] Unable to work [] Unable to attend christian [] Unable to walk/stand [] Unable to read [] Unable to drive [] Unable to eat/drink [] Unable to sleep [] Unable to be with family [] Patient intubated [] Other: Summary patient feeling much better Time spent with patient 15 min
--- NOTE | 2019-07-08 10:48 | ECG_ITS ---
Measurements Intervals [place] Rate: 72 P: 20 NM: 172 QRS: 56 QRSD: 92 T: 56 QT: 392 QTc: 432 SINUS RHYTHM WITH PAC'S Compared to ECG 07/04/2019 11:55:03 No significant changes Electronically Signed On 07-08-2019 22:04:22 CDT by Gladys Foley M.D. [email or web address]
--- NOTE | 2019-07-08 11:05 | P.PN_ITS ---
Subjective Subjective: Interval history: Feels well overall, more expressive today, less word finding difficulty. Able to converse freely. Vitals stable. Asymptomatic bradycardia noted. 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 Nuñez Status: Acute Additional A&P Information 1. Giant cell arteritis, multifocal diffuse Currently on prednisone 80mg qd--> reduce dose to 80mg daily after discussion with Dr. Nuñez Has been on chronic high dose steroids since > 1 month at this point. Added PJP ppx with Bactrim DS three times a week. MR/MRA with very small caliber cavernous and supraclinoid intracranial carotid arteries with diffuse circumferential wall thickening. Very small caliber patent lumen worse on the LEFT. MRA neck today. Appreciate neurology recommendations Dizziness and syncopal episodes at home, will need SNF upon discharge, being worked on with case management at this time, awaiting acceptance. Will need close biweekly f/up with neurology as an outpatient. Continue ASA 81mg po qd + atorvastatin for atherosclerotic disease 2. 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 At this point close monitoring is indicated. He has had a previous extensive work-up here and at [place] demonstrating severe intracranial arterial narrowing. Sedimentation rate was performed and not elevated. Continue prednisone 70 mg daily Telemetry demonstrates some bradycardia, but no pauses or anything to explain his symptoms. EKG 12 lead today. He has not been orthostatic on the blood pressures we have here. 3. 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 Blood sugar well controlled at this time 5. H/o gout 6. H/o hyperlipidemia : on atorvastatin 7. History of prostate cancer, currently CHARITY 8. leukocytosis likely 2/2 margination from steroids. Full code Lovenox for DVT prophylaxis Other ppx: Bactrim Tue//Sat for PJP ppx with steroids. Dispo: planned for NH discharge. We were updated that NH will be unable to accept today as they are testing other patients for potential COVID exposure. Attestations Medical Necessity Statement*: awaiting placement at [facility] Coding Level of Care Code Acute Thermoforming Machine Operator for Meagan Pirtchett Diagnoses Syncope R55 Giant cell arteritis M31.6
[2019-07-08 11:14] LABS: Glucose Point of Care 128 mg/dL (70-110)
--- NOTE | 2019-07-08 13:30 | PC.NURSE ---
Patient was taken off floor to MRI.
--- NOTE | 2019-07-08 13:34 | PC.OT ---
OT NOTE: OT TREATMENT ATTEMPTED THIS P.M. PATIENT IS AT PROCEDURE AND UNAVAILABLE FOR TREATMENT. WILL ATTEMPT AGAIN LATER IN P.M.
--- NOTE | 2019-07-08 14:30 | PC.NURSE ---
Patient back to floor from MRI. Patient stable and vital signs normal.
[2019-07-08 17:23] LABS: Glucose Point of Care 229 mg/dL (70-110)
[2019-07-08] MEDS: enoxaparin 40 mg/0.4 mL Syringe SUBCUT (17:49)
[2019-07-08] MEDS: sodium chloride 0.9% 1,000 ML 50 ML IV ×2 (18:18→23:17)
[2019-07-08 20:52] LABS: Glucose Point of Care 246 mg/dL (70-110)
[2019-07-09] VITALS (7 sets, daily range): BP systolic 110–154; BP diastolic 63–83; PULSE 51–78; RESP 17–20; TEMP 36.4–37; O2SAT 96–99
[2019-07-09 06:40] LABS: Glucose Point of Care 127 mg/dL (70-110)
[2019-07-09] MEDS: aspirin 81 mg Chew Tablet PO (09:21)
[2019-07-09] MEDS: famotidine 20 mg Tablet PO ×2 (09:22→17:26)
[2019-07-09] MEDS: predniSONE 20 mg Tablet 70 MG PO (09:22)
[2019-07-09] MEDS: calcium carb-vit d 500mg-200unit 1 Tablet 1 EACH PO (09:25)
[2019-07-09 11:07] LABS: Glucose Point of Care 129 mg/dL (70-110)
[2019-07-09] MEDS: sulfamethoxazole-trimeth DS 160-800 mg Tablet 1 TAB PO (12:42)
--- NOTE | 2019-07-09 16:06 | P.PN_ITS ---
Subjective Subjective: Interval history: Feels well overall, word finding difficulty presenting again today. No acute overnight events. Hemodynamically stable, awaiting placement. 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 Nuñez Status: Acute Additional A&P Information 1. Giant cell arteritis, multifocal diffuse Currently on prednisone 80mg qd--> reduce dose to 70mg daily after discussion with Dr. Nuñez Has been on chronic high dose steroids since > 1 month at this point. Added PJP ppx with Bactrim DS three times a week. MR/MRA with very small caliber cavernous and supraclinoid intracranial carotid arteries with diffuse circumferential wall thickening. Very small caliber patent lumen worse on the LEFT. MRA neck today. Appreciate neurology recommendations Dizziness and syncopal episodes at home, will need SNF upon discharge, being worked on with case management at this time, awaiting acceptance. Will need close biweekly f/up with neurology as an outpatient. Continue ASA 81mg po qd + atorvastatin for atherosclerotic disease Waxing and waning changes in apraxia and aphasia Will need f/up as outpatient/ PET of upper extremities recommended. 2. 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 At this point close monitoring is indicated. He has had a previous extensive work-up here and at [place] demonstrating severe intracranial arterial narrowing. Sedimentation rate was performed and not elevated. Continue prednisone 70 mg daily Telemetry demonstrates some bradycardia, but no pauses or anything to explain his symptoms. EKG 12 lead today. He has not been orthostatic on the blood pressures we have here. 3. 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 Blood sugar well controlled at this time 5. H/o gout 6. H/o hyperlipidemia : on atorvastatin 7. History of prostate cancer, currently CHARITY 8. leukocytosis likely 2/2 margination from steroids. Full code Lovenox for DVT prophylaxis Other ppx: Bactrim Tu//Sat for PJP ppx with steroids. Dispo: planned for NH discharge. We were updated that NH will be unable to accept today as they are testing other patients for potential COVID exposure. Attestations Medical Necessity Statement*: ready for discharge, awaiting NH acceptance Coding Level of Care Code Acute Modeler for Bamg Fwleon Diagnoses Syncope R55 Giant cell arteritis M31.6
[2019-07-09 17:11] LABS: Glucose Point of Care 227 mg/dL (70-110)
[2019-07-09] MEDS: enoxaparin 40 mg/0.4 mL Syringe SUBCUT (17:26)
[2019-07-09 21:25] LABS: Glucose Point of Care 143 mg/dL (70-110)
[2019-07-09] MEDS: atorvastatin 40 mg Tablet PO (21:50)
[2019-07-10 03:53] VITALS: BP 146/79; PULSE 49; RESP 22; TEMP 36.5; O2SAT 96
[2019-07-10 06:58] LABS: Glucose Point of Care 102 mg/dL (70-110)
[2019-07-10 07:32] VITALS: BP 145/81; PULSE 55; RESP 18; TEMP 36.8; O2SAT 97
[2019-07-10] MEDS: calcium carb-vit d 500mg-200unit 1 Tablet 1 EACH PO (09:14)
[2019-07-10] MEDS: predniSONE 20 mg Tablet 70 MG PO (09:14)
[2019-07-10] MEDS: aspirin 81 mg Chew Tablet PO (09:15)
[2019-07-10] MEDS: famotidine 20 mg Tablet PO (09:16)
--- NOTE | 2019-07-10 10:22 | PC.OT ---
OT NOTE: OT TREATMENT ATTEMPTED. PATIENT IS IN BED WITH HOB ELEVATED. A SPOON IS IN HIS RIGHT HAND AND NEXT TO HIS LEFT HAND IS AN OVER-TURNED PUDDING CUP. PATIENT APPEARS VERY LETHARGIC THIS MORNING, MINIMALLY VERBAL. I ASKED IF HE WAS HUNGRY AND HE ANSWERED WITH EXTENDED TIME, YES . HE MADE NO INITIATION TO ATTEMPT TO FEED SELF. I FED HIM ONE BITE AND THEN ASKED IF HE COULD FEED HIMSELF A BITE. HE AGAIN MADE NO EFFORT. I PLACED THE SPOON WITH PUDDING IN HIS RIGHT HAND AND HE MADE NO EFFORT TO GRASP THE SPOON, HE WAS COMPLETELY DEPENDENT IN FEEDING TASK. PATIENT IS UNABLE TO ACTIVELY PARTICIPATE IN SKILLED THERAPY TODAY.
[2019-07-10 10:57] LABS: Glucose Point of Care 129 mg/dL (70-110)
--- NOTE | 2019-07-10 11:40 | PM.DCS ---
Discharge Providers Date of Admission: 07/07/19 11:14 Date of Discharge: July 10, 2019 Attending Provider at Admission: Rod Duran MD Attending Provider at Discharge: Leigha Castillo MD Primary Care Provider: Cristina Vann Diagnoses at Discharge Discharge Diagnosis (1) Syncope: Status: Acute (2) Giant cell arteritis: Status: Acute Reason for Visit Reason for Visit: Reason For Visit: AMS Hospital Course Discharge Summary: Josr Kaye is a 79 year old man with giant cell arteritis affecting both middle cerebral arteries, both carotid arteries and the cavernous sinus and both vertebral arteries at the craniocervical junction. He has moderately severe midline ataxia, anterograde amnesia and apraxia. His symptoms wax and wane with orthostatic aggravation. Recently he has had 2 episodes of losing consciousness and falling while walking. His has been holding onto him but she could not keep him upright and eased him to the floor with his gait belt.His has noticed that he is severely apractic at times to the point that he could not put his teeth in several days ago while he was having an exacerbation. The concern is that he is now one month into high-dose steroids and continuing to have episodes of worsening. Lumbar puncture was completed 06/12 at [facility] and showed 27 nucleated cells in tube 1 and 31 nucleated cells in tube 4 (93% lymphs). Protein 73 glucose 64. He had negative laboratory work-up with HIV, RPR, ESR 11 and CRP 8 prior to steroid treatment. MONTY/rheumatoid factor, SPEP, CSF BRI negative. Temporal artery biopsy showed giant cells consistent with giant cell arteritis. Ophthalmology found no abnormalities on dilated funduscopic exam. He was treated with 1 g of Solu-Medrol IV daily for 3 days and then started on 80 mg of prednisone. Repeat spinal fluid exam showed no nucleated cells. Studies performed at [facility] documented the same findings of intracranial vascular stenosis that were seen here. Throughout his stay at [facility] he demonstrated orthostatic hypotension that was mild but severely symptomatic. He had transthoracic echocardiogram with a bubble study that showed ASD/PFO. Since he had some improvement with steroids, he is continuing on Prednisone 70mg qd. he continues to have intermittent aphasia and apraxia which waxes and wanes. He needs follow up with neurology as an outpatient every 2 weeks. Additionally a PET needs to be completed skull to thigh to monitor response to treatment and look for involvement of large vessels in the chest. Physical Exam Narrative: EXAM NARRATIVE: GEN: Awake, alert and oriented, no acute distress CVS: S1S2 N RS: CTA B/L Abd: Soft, nt/nd , bs+ ACCESSORIES REPAIRER: no focal neuro deficits Discharge Data Data Completed and Pending: Completed Studies During Hospitalization Category Date Time Status CT head wo con* 7 0450 Stat Cat Scan 07/04/19 11:39 Completed MR angio head wo con [id number] Urgent MRI 07/07/19 12:00 Completed MR angio neck w c on* [id number] Urgent MRI 07/07/19 12:00 Completed MR head wo con* 7 0551 Urgent MRI 07/07/19 07:51 Completed Labs from last 24 hours 07/10/19 07/10/19 07/09/19 10:41 06:43 21:14 POC Glucose 129 102 143 07/09/19 17:04 POC Glucose 227 Vitals: Last Vital Signs Temp 98.2 F 07/10/19 07:32 Pulse 55 L 07/10/19 07:32 Resp 18 07/10/19 07:32 BP 145/81 07/10/19 07:32 Pulse Ox 97 07/10/19 07:32 Discharge Plan Discharge Patient Disposition: Xfer SNF Condition: Stable Prescriptions: New acetaminophen 325 mg Tablet 650 mg PO Q6H PRN (Reason: Mild/Mod Pain Or Temp >/= 101) Qty: 0 RF: 0 insulin aspart U-100 [Novolog U-100 Insulin aspart] 100 unit/mL Solution 100 unit SUBCUT DIRECTED PRN (Reason: hyperglycemia) Qty: 10 RF: 1 sulfamethoxazole-trimethoprim 800-160 mg Tablet 1 tab PO TuThSa@1130 30 Days Qty: 30 RF: 0 prednisone 20 mg Tablet 70 mg PO DAILY 30 Days Qty: 30 RF: 0 Continued famotidine 20 mg Tablet 20 mg PO DAILY RF: 0 aspirin 81 mg Tablet,Chewable 81 mg PO DAILY RF: 0 calcium carbonate-vitamin D3 [Oyster Shell Calcium-Vit D3] 500 mg(1,250mg) -200 unit Tablet 1 tab PO DAILY RF: 0 atorvastatin 40 mg tablet 40 mg PO BEDTIME RF: 0 melatonin 3 mg Tablet 3 mg PO BEDTIME PRN (Reason: Sleep) Qty: 0 RF: 0 Discontinued prednisone 20 mg tablet 80 mg PO DAILY RF: 0 Novolin N Flexpen 100 unit/mL (3 mL) Insulin Pen 7.5 unit SUBCUT DAILY Qty: 0 RF: 0 Discharge Orders: Discharge Order (Routine); Ordered 07/10/19 Ordered By: Leigha Castillo Other Ambulatory Orders: Miscellaneous Procedure (Order) Location: None Selected Ordered By: Leigha Castillo Referrals: [facility] [Outside] Discharge Diet: Usual diet Discharge Activity: As per PT/OT instructions Discharge Attestations Time Spent in Discharge Care*: greater than 30 min Status at Discharge: Cognitive status at discharge: cognitively intact, Behavioral status at discharge: cooperative, Quality Metrics Clinical Quality Measures During this hospital stay, did patient experience: None Coding Level of Care Code Acute Shoe Planner for Meagan Pritchett Diagnoses Syncope R55 Giant cell arteritis M31.6
[2019-07-10 12:00] VITALS: BP 130/65; PULSE 63; RESP 16; TEMP 36.6; O2SAT 94
[2019-07-10 12:40] VITALS: BP 145/81; PULSE 55; RESP 18; TEMP 36.8; O2SAT 97
--- NOTE | 2019-07-10 14:10 | PC.NURSE ---
Report called to skilled nursing.
== END 2019-07-10 14:25 | disposition skilled nursing facility (03) | DRG 547 ==
LOC: ER 13:44 → MEDSURG 15:47
PROVIDERS: Internal Medicine; Admitting Provider Student in an Organized Health Care Education/Training Program; Emergency Provider Family Medicine; Family Provider Family Medicine; PCP Physician Assistant; Visit Provider Student in an Organized Health Care Education/Training Program
DX: M31.6 Other giant cell arteritis (principal); I66.03 Occlusion and stenosis of bilateral middle cerebral arteries; Z79.82 Long term (current) use of aspirin; E78.5 Hyperlipidemia, unspecified; M10.9 Gout, unspecified; Z85.46 Personal history of malignant neoplasm of prostate; I10 Essential (primary) hypertension; Z87.891 Personal history of nicotine dependence
CPT/HCPCS: 12345; 36415; 36416; 70450; 70544; 70548; 70551; 80048; 80053; 81003; 82550; 82962; 85025; 85651; 87635; 93005; 96372; 97110; 97116; 97162; 97166; 97530; 97535; 99283; A9270; A9579; G0378; J1650; J1815; J7030; J7512

== ENCOUNTER 2019-07-13 14:24 | Emergency (ER) | payer MEDICARE, SELFPAY ==
[2019-07-13 14:26] VITALS: BP 168/94; PULSE 81; RESP 16; TEMP 36.9; O2SAT 96; BMI 28.5
--- NOTE | 2019-07-13 14:53 | ED_ITS ---
Documented by User: Sarah Olivas DO 07/13/19 16:36 HPI - Fall General: Chief Complaint: Fall Stated Complaint: R HIP AND SHOULDER PAIN Time Seen by Provider: 07/13/19 14:53 History of Present Illness: HPI Narrative: Pt states he doesnt remember falling, He c/o pain in his right shoulder. NH stated he was having pain in his hips but he denies that at this time. Pts history and exam are limited due to pts confusion. He doesnt know if he hit his head but states it doesnt hurt. Denies back pain or necck pain.. complaint: fall Onset (ago): unknown Fall witnessed: no Place fall occurred: jail[facility] Loss of consciousness: unknown Symptoms prior to fall: other (pt doesnt remember) Location of injury: other (right shoulder) Location of injury - extremities: Right: shoulder Severity: moderate Severity scale (1-10): 7 Quality: sharp Associated symptoms-after fall: Reports no associated symptoms; Denies chest pain or neck pain Review of Systems General: Reports: ROS unobtainable due to mental status Card: Denies: chest pain Resp: Denies: shortness of breath, productive cough or wheezing Musc: Reports: extremity pain (right shoulder), joint pain and limited range of motion (right shoulder); Denies: neck pain, back pain or redness Psych: Reports: memory loss PFSH ED PFSH: Medical History SHINGLE WEAVER vasculitis Giant cell arteritis Gout Hyperlipidemia -has known hx of high cholesterol though not on statins -lipid panel; on statin Hypertension -has known hx of borderline HTN -VSS; continue to monitor -BP controlled without intervention Prostate cancer Surgical History H/O prostatectomy H/O rhinoplasty Hx of transurethral resection of prostate Family History Father ALS (amyotrophic lateral sclerosis) Sister Dementia Alzheimer's dementia Mother Cancer Breast cancer Other CAD (coronary artery disease) Denies family history of Hypertension Stroke Social History Smoking and tobacco status: former smoker Quit status (tobacco): has quit using tobacco Year quit tobacco: quit in his 20s Alcohol intake: current Alcohol intake frequency: holidays/special occasions only Household members: spouse History of recent travel: No Physical Exam Const: COMMON NORMALS: healthy appearing and alert; negative for oriented x3 (pt confused as to place and tie and has loss of memory) EXAM LIMITATIONS: altered mental status GENERAL APPEARANCE: cooperative and well developed; not in distress, not anxious, not disheveled, not lethargic and not grossly edematous NUTRITIONAL APPEARANCE: not cachectic ORIENTATION/CONSCIOUSNESS: Yes awake and Yes confused; not lethargic HENMT: COMMON NORMALS: normocephalic and external nose normal; head/scalp not atraumatic HEAD & SCALP: normal to inspection and normocephalic; not atraumatic FACE & SINUS: normal facial exam NOSE: external nose normal and nares normal GENERAL EAR: hearing not grossly impaired MOUTH: oral and palatal mucosa normal, lip normal and tongue normal Neck/C-Spine: COMMON NORMALS: full ROM, supple and no JVD GENERAL: Yes normal visual inspection, No anterior neck swelling, No lymphadenopathy and No tracheal deviation CERVICAL SPINE: Yes cervical ROM normal, Yes normal cervical lordosis, No pain with cervical ROM, No cervical spine tenderness, No step off deformity, No paracervical muscle tenderness, No paracervical muscle spasm and No collar present Chest: COMMONS NORMALS: inspection of chest normal (slight tender to palpation upper right chest, no crepitus) and inspection of breasts normal CHEST: No crepitus, No sternal flail and No laceration Resp: COMMON NORMALS: normal respiratory effort and no use of accessory muscles EFFORT & INSPECTION: Yes able to speak in complete sentences and No prolonged expiratory phase AUSCULTATION: diminished lung sounds (moderate diffuse) Cardio: COMMON NORMALS: no JVD, regular rate, regular rhythm, no murmurs and peripheral pulses 2+ throughout RATE: regular rate RHYTHM: regular rhythm PERIPHERAL PULSES: pulses 2+ throughout GI: COMMON NORMALS: normal to inspection, nondistended, normoactive bowel sounds, soft to palpation and non-tender INSPECTION: Yes normal to inspection AUSCULTATION: Yes normoactive bowel sounds PALPATION: Yes soft and No t ene RECTAL EXAM: Yes deferred : COMMON NORMALS: Yes no CVA tenderness BLADDER/KIDNEY EXAM: Yes no CVA tenderness and Yes CVA tenderness Back/Pelvis: COMMON NORMALS: no CVA tenderness, thoracic and lumbar spine normal to inspection, no thoracic nor lumbar tenderness, thoraco-lumbar ROM normal and straight leg raise negative bilaterally GENERAL BACK: Yes CVA tenderness THORACIC SPINE/UPPER BACK: Yes normal to inspection LUMBAR SPINE/LOWER BACK: Yes normal to inspection PELVIS: Yes no pain with anterior- posterior compression, Yes no pain with lateral compression and No tenderness over symphysis pubis SACROILIAC JOINTS: Yes SI joints normal SACRUM: no ecchymosis COCCYX: no tenderness Extremity: COMMON NORMALS: negative for normal to inspection and negative for full ROM RIGHT UPPER EXTREMITY: Yes shoulder joint Right shoulder: Yes inspection (tender to palpation ant), Yes palpation and Yes ROM (decreased) Neuro: COMMON NORMALS: negative for oriented x3 (pt confused as to place and tie and has loss of memory) SENSORIUM/ORIENTATION: Yes alert and No lethargic Skin: COMMON NORMALS: no rashes or lesions noted GENERAL SKIN EXAM: no rashes or lesions noted LESIONS: no lesions RASHES: no rashes TRAUMA: no lacerations or abrasions Course Vital Signs: Vital signs: Vital Signs Temperature 98.4 F 07/13/19 14:26 Pulse Rate 81 07/13/19 14:26 Respiratory Rate 16 07/13/19 14:26 Blood Pressure 168/94 07/13/19 14:26 Pulse Oximetry 96 07/13/19 14:26 MDM - Fall [facility] Narrative: Medical decision making narrative: 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 he wass recently here and seen by Dr Nuñez on 07-06-19 and sent to [place] after his admission, he is on high dose steroids but has progressively worsened over the past [address] Nuñez is on vacation so I was unable to get her rec but Dr Chaney re I call his neurologist in [place] to see what rec they have at this time. Pt now c/o right knee and foot pain but no hip pain. Pt has multiple rib fractures that are comminuted and displaced internally, no pneumo or injury to liver noted. Lab Data: Labs: Lab Results 07/13/19 07/13/19 07/13/19 Range/Units 17:33 17:33 17:33 WBC 16.4 H (4.0-10.0) 10^3/ uL RBC 5.71 H (4.1-5.3) 10^6/u L Hgb 17.0 H (11.7-16.6) g/dL Hct 53.7 H (42.0-52.0) % MCV 94.0 (80-94) fL MCH 29.8 (28.0-34.0) pg MCHC 31.7 (30.0-36.0) g/dL RDW 13.5 (12.1-15.1) % Plt Count 247 (130-400) 10^3/c mm MPV 10.0 (7.4-10.4) fL Neut % (Auto) 95.2 % Lymph % (Auto) 1.6 % [place] % (Auto) 2.3 % Eos % (Auto) 0.0 % Baso % (Auto) 0.1 % Neut # (Auto) 15.6 H (1.8-7.7) 10^3/u L Lymph # (Auto) 0.3 L (0.8-4.8) 10^3/u L [place] # (Auto) 0.4 (0.2-0.9) 10^3/u L Eos # (Auto) 0.0 (0.0-0.8) 10^3/u L Baso # (Auto) 0.0 (0.0-0.1) 10^3/u L Nucleated RBC % (a uto) 0 % Nucleated RBCs # 0.0 /100WBC Sodium 134 L (136-145) mmol/L Potassium 4.4 (3.5-5.1) mmol/L Chloride 94 L (98-107) mmol/L Carbon Dioxide 24 (22-29) mmol/L Anion Gap 20.4 H (5-19) BUN 22 (8-23) mg/dL Creatinine 1.3 H (0.7-1.2) mg/dL Glucose 230 H (65-115) mg/dL Calculated Osmolal ity 282 L (285-295) mOsm/k g Calcium 10.0 (8.5-10.5) mg/dL Total Bilirubin 1.1 (0.15-1.2) mg/dL AST 28 (0-40) U/L ALT 75 H (0-41) U/L Alkaline Phosphata se 82 (40-130) IU/L Troponin T Baselin e 12 (0-15) ng/mL Total Protein 7.0 (6.6-8.7) g/dL Albumin 4.4 (3.5-5.2) g/dL Globulin 2.6 (1.3-4.6) g/dL Imaging Data^: CT Head: Radiologist's impression: CT Scan Report Signed Patient: Josr Kaye #: [id number] : 2Acct#:[id number] Age/Sex: 79 / MADM Date: 07/13/19 Loc: ERRoom/Bed: Attending Dr: Ordering Provider/Ordering MD: Sarah Olivas DO Date of Service: 07/13/19 Procedure(s): CT head wo con* [id number] Accession Number(s): [id number] Report Number: [id number] WS: [id number] CT HEAD TECHNIQUE: Noncontrast CT of the head obtained from the skullbase to the vertex. CLINICAL INFORMATION: trauma COMPARISON: MRI July 07, 2019 DLP: 1237.[address] scans at [facility] use at least one of these dose optimization techniques: automated exposure control; mA and/or kV adjustment per patient size (includes targeted exams where dose is matched to clinical indication); or iterative reconstruction. FINDINGS: New wedge-shaped area of low-attenuation involving the left parietal lobe ex tending to the cortex. This extends to involve the left parietal occipital junction. Findings are most consistent with early subacute infarct new from July 07, 2019. Infarct measures approximately 2.5 x 2.1 x 5.4 CM. Mild mucosal thickening right mastoid air cells. Left mastoid air cells well aerated. Paranasal sinuses are well aerated. Normal visualized soft tissues. Notified Sarah Olivas DO at 07/13/2019 3:[address]/CT head wo con* [id number] IMPRESSION: 1. New wedge-shaped area of low-attenuation involving the left parietal lobe extending to the occipital junction consistent with early subacute ischemia. This is new since the MRI July 07, 2019.Infarct measures approximately 2.5 x 2.1 x 5.4 CM. 2. No significant mass effect or midline shift. 3. No evidence of intracranial hemorrhage. 4. Mild small vessel changes with moderate parenchymal volume loss. 5. Stable right choroid fissure cyst. Dictated By:Corby Mustafa MD Signed By:Corby Mustafa MDSigned Date/Time:07/13/19 1556 Other Imaging: Radiologist's impression: [place] [address] XRay Report Signed Patient: Josr Kaye #: [id number] : 1940t#:[id number] Age/Sex: 79 / MADM Date: 07/13/19 Loc: ERRoom/Bed: Attending Dr: Ordering Provider/Ordering MD: Sarah Olivas DO Date of Service: 07/13/19 Procedure(s): XR hip RT 2-3V wo/w pel* [id number] Accession Number(s): [id number] Report Number: [id number] WS: [id number] HIP WITH PELVIS RIGHT TECHNIQUE: 3 views of the right hip with pelvis CLINICAL INFORMATION: trauma COMPARISON: None. FINDINGS: Mild to moderate degenerative arthritis both hips with joint space narrowing. No acute fractures. Normal femoral necks. Normal pubic rami. Degenerative arthritis lower lumbar spine. XR/XR hip RT 2-3V wo/w pel* [id number] IMPRESSION: No acute right hip fractures. Dictated By:Corby Mustafa MD Signed By:Corby Mustafa MDSigned Date/Time:07/13/19 1615 DD/ 1612 Other Xray: Radiologist's impression: XRay Report Signed Patient: Josr Kaye #: [id number] : [id number]#:[id number] Age/Sex: 79 / MADM Date: 07/13/19 Loc: ERRoom/Bed: Attending Dr: Ordering Provider/Ordering MD: Sarah Olivas DO Date of Service: 07/13/19 Procedure(s): XR shoulder RT min 2V* [id number] Accession Number(s): [id number] Report Number: [id number] WS: [id number] SHOULDER RIGHT TECHNIQUE: 3 views of the right shoulder CLINICAL INFORMATION: trauma COMPARISON: None. FINDINGS: Mild degenerative arthritis acromioclavicular joint. Degenerative narrowing glenohumeral joint. Acromion is normal in appearance. Normal glenoid. No evidence of acute fracture dislocation. 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 No acute fractures. Dictated By:Corby Mustafa MD Signed By:Corby Mustafa MDSigned Date/Time:07/13/191611 DD/ 09 CT Chest: Radiologist's impression: Patient: Josr Kaye #: [id number] : 1940cct#:[id number] Age/Sex: 79 / MADM Date: 07/13/19 [facility]: Attending Dr: Ordering Provider/Ordering MD: Sarah Olivas DO Date of Service: 07/13/19 Procedure(s): CT chest [facility] [address] Accession Number(s): [id number] Report Number: [id number] WS: [id number] CT CHEST TECHNIQUE: Noncontrast CT of the chest with coronal and sagittal reformatted images. CLINICAL INFORMATION: trauma COMPARISON: None. DLP: 714.[address] scans at [facility] use at least one of these dose optimization techniques: automated exposure control; mA and/or kV adjustment per patient size (includes targeted exams where dose is matched to clinical indication); or iterative reconstruction. FINDINGS:Multiple acute appearing right posterior rib fractures involving the 10th rib posteriorly and laterally and the ninth rib posteriorly and laterally. Comminuted right posterior lateral ninth rib fracture slightly displaced into the pleura with a small right pleural effusion. No pneumothorax. Ninth rib displacement adjacent to the hepatic dome but no evidence of hepatic edema or laceration. Moderate chronic emphysematous changes. Subsegmental atelectasis in the lung bases. Slight patchy atelectasis in the lingula. No acute-appearing pulmonary infiltrates. No focal pneumonia. No mediastinal or hilar lymphadenopathy. Small esophageal hiatal hernia. Adrenal glands are normal. No axillary lymphadenopathy. Mild thoracic curve. Mild thoracic kyphosis. Hypertrophic changes thoracic spine. Notified Sarah Olivas DO at 07/13/2019 4:[address]/CT chest wo con [id number] IMPRESSION: 1. Acute right posterior and lateral rib fractures involving the ninth and 10th ribs. Comminuted ninth rib fracture with one shaft width displacement with a small right pleural effusion. No visualized pneumothorax. 2. Moderate chronic emphysematous changes with bibasilar atelectasis. 3. Subsegmental atelectasis in the lingula and right middle lobe. 4. No mediastinal or hilar lymphadenopathy. 5. Small esophageal hiatal hernia. Dictated By:Corby Mustafa MD Signed By:Corby Mustafaigned Date/Time:07/13/19 1610 Discharge Plan Discharge Patient Disposition: Xfer Short-Term Hosp Clinical Impression: CVA (cerebral vascular accident) Qualifiers: CVA mechanism: unspecified Qualified Code(s): I63.9 - Cerebral infarction, unspecified Fall Qualifiers: Encounter type: initial encounter Qualified Code(s): W19.XXXA - Unspecified fall, initial encounter Fracture, ribs Qualifiers: Encounter type: initial encounter Rib fracture type: multiple ribs Fracture type: closed Laterality: right Qualified Code(s): S22.41XA - Multiple fractures of ribs, right side, initial encounter for closed fracture Condition: Stable Referrals: Iban Ball DO [Family Provider] - Cristina Vann PA [Primary Care Provider] - Coding Level of Care Code ED Jewel Diameter Gauger for Chg Fwd Exam Comprehensive Documented by User: Nieves Chambers 07/13/19 18:42 HPI - Fall General: Chief Complaint: Fall Stated Complaint: R HIP AND SHOULDER PAIN Time Seen by Provider: 07/13/19 14:53 PFSH ED PFSH: Medical History SHINGLE WEAVER vasculitis Giant cell arteritis Gout Hyperlipidemia -has known hx of high cholesterol though not on statins -lipid panel; on statin Hypertension -has known hx of borderline HTN -VSS; continue to monitor -BP controlled without intervention Prostate cancer Surgical History H/O prostatectomy H/O rhinoplasty Hx of transurethral resection of prostate Family History Father ALS (amyotrophic lateral sclerosis) Sister Dementia Alzheimer's dementia Mother Cancer Breast cancer Other CAD (coronary artery disease) Denies family history of Hypertension Stroke Social History Smoking and tobacco status: former smoker Quit status (tobacco): has quit using tobacco Year quit tobacco: quit in his 20s Alcohol intake: current Alcohol intake frequency: holidays/special occasions only Household members: spouse History of recent travel: No Course Vital Signs: Vital signs: Vital Signs Temperature 98.4 F 07/13/19 14:26 Pulse Rate 81 07/13/19 14:26 Respiratory Rate 16 07/13/19 14:26 Blood Pressure 168/94 07/13/19 14:26 Pulse Oximetry 96 07/13/19 14:26 MDM - Fall MDM Narrative: Medical decision making narrative: Case turned over to me at [address] Olivas. Awaiting Doctor to Doctor transfer to [place]. I reviewed the case with Dr. Hood, the ED attending and he will accept the patient in transfer. I did review all available information at the time with him. He had no questions or concerns. Patient will be transferred at the first available opportunity. Lab Data: Attestation: I reviewed the patient's lab results. Labs: Lab Results 07/13/19 07/13/19 07/13/19 Range/Units 17:33 17:33 17:33 WBC 16.4 H (4.0-10.0) 10^3/ uL RBC 5.71 H (4.1-5.3) 10^6/u L Hgb 17.0 H (11.7-16.6) g/dL Hct 53.7 H (42.0-52.0) % MCV 94.0 (80-94) fL MCH 29.8 (28.0-34.0) pg MCHC 31.7 (30.0-36.0) g/dL RDW 13.5 (12.1-15.1) % Plt Count 247 (130-400) 10^3/c mm MPV 10.0 (7.4-10.4) fL Neut % (Auto) 95.2 % Lymph % (Auto) 1.6 % [place] % (Auto) 2.3 % Eos % (Auto) 0.0 % Baso % (Auto) 0.1 % Neut # (Auto) 15.6 H (1.8-7.7) 10^3/u L Lymph # (Auto) 0.3 L (0.8-4.8) 10^3/u L [place] # (Auto) 0.4 (0.2-0.9) 10^3/u L Eos # (Auto) 0.0 (0.0-0.8) 10^3/u L Baso # (Auto) 0.0 (0.0-0.1) 10^3/u L Nucleated RBC % (a uto) 0 % Nucleated RBCs # 0.0 /100WBC Sodium 134 L (136-145) mmol/L Potassium 4.4 (3.5-5.1) mmol/L Chloride 94 L (98-107) mmol/L Carbon Dioxide 24 (22-29) mmol/L Anion Gap 20.4 H (5-19) BUN 22 (8-23) mg/dL Creatinine 1.3 H (0.7-1.2) mg/dL Glucose 230 H (65-115) mg/dL Calculated Osmolal ity 282 L (285-295) mOsm/k g Calcium 10.0 (8.5-10.5) mg/dL Total Bilirubin 1.1 (0.15-1.2) mg/dL AST 28 (0-40) U/L ALT 75 H (0-41) U/L Alkaline Phosphata se 82 (40-130) IU/L Troponin T Baselin e 12 (0-15) ng/mL Total Protein 7.0 (6.6-8.7) g/dL Albumin 4.4 (3.5-5.2) g/dL Globulin 2.6 (1.3-4.6) g/dL Discharge Plan Discharge Patient Disposition: Xfer Short-Term Hosp Clinical Impression: CVA (cerebral vascular accident) Qualifiers: CVA mechanism: unspecified Qualified Code(s): I63.9 - Cerebral infarction, unspecified Fall Qualifiers: Encounter type: initial encounter Qualified Code(s): W19.XXXA - Unspecified fall, initial encounter Fracture, ribs Qualifiers: Encounter type: initial encounter Rib fracture type: multiple ribs Fracture type: closed Laterality: right Qualified Code(s): S22.41XA - Multiple fractures of ribs, right side, initial encounter for closed fracture Condition: Stable Referrals: Iban Ball, DO [Family Provider] - Cristina Vann PA [Primary Care Provider] - Coding Level of Care Code ED Jewel Diameter Gauger for Chg Fwd Exam Comprehensive
--- NOTE | 2019-07-13 15:13 | XR_ITS ---
WS: [id number] HIP WITH PELVIS RIGHT TECHNIQUE: 3 views of the right hip with pelvis CLINICAL INFORMATION: trauma COMPARISON: None. FINDINGS: Mild to moderate degenerative arthritis both hips with joint space narrowing. No acute fractures. Nor mal femoral necks. Normal pubic rami. Degenerative arthritis lower lumbar spine. XR/XR hip RT 2-3V wo/w pel* [id number] IMPRESSION: No acute right hip fractures.
--- NOTE | 2019-07-13 15:13 | CT_ITS ---
WS: [id number] CT HEAD TECHNIQUE: Noncontrast CT of the head obtained from the skullbase to the vertex. CLINICAL INFORMATION: trauma COMPARISON: MRI July 07, 2019 DLP: 1237.[address] scans at [facility] use at least one of these dose optimization techniques: automat ed exposure control; mA and/or kV adjustment per patient size (includes targeted exams where dose is matched to clinical indication); or iterative reconstruction. FINDINGS: New wedge-shaped area of low-attenuation involving the left parietal lobe extending to the cortex. Th is extends to involve the left parietal occipital junction. Findings are most consistent with early s ubacute infarct new from July 07, 2019. Infarct measures approximately 2.5 x 2.1 x 5.4 CM. Mild mucosal thickening right mastoid air cells. Left mastoid air cells well aerated. Paranasal sinus es are well aerated. Normal visualized soft tissues. Notified Sarah Olivas DO at 07/13/2019 3:[address]/CT head wo con* [id number] IMPRESSION: 1. New wedge-shaped area of low-attenuation involving the left parietal lobe e xtending to the occipital junction consistent with early subacute ischemia. Thi s is new since the MRI July 07, 2019.Infarct measures approximately 2.5 x 2.1 x 5.4 CM. 2. No significant mass effect or midline shift. 3. No evidence of intracranial hemorrhage. 4. Mild small vessel changes with moderate parenchymal volume loss. 5. Stable right choroid fissure cyst.
--- NOTE | 2019-07-13 15:13 | CT_ITS ---
WS: [id number] CT CHEST TECHNIQUE: Noncontrast CT of the chest with coronal and sagittal reformatted images. CLINICAL INFORMATION: trauma COMPARISON: None. DLP: 714.[address] scans at [facility] use at least one of these dose optimization techniques: automat ed exposure control; mA and/or kV adjustment per patient size (includes targeted exams where dose is matched to clinical indication); or iterative reconstruction. FINDINGS:Multiple acute appearing right posterior rib fractures involving the 10th rib posteriorly an d laterally and the ninth rib posteriorly and laterally. Comminuted right posterior lateral ninth rib fracture slightly displaced into the pleura with a small right pleural effusion. No pneumothorax. Ni nth rib displacement adjacent to the hepatic dome but no evidence of hepatic edema or laceration. Moderate chronic emphysematous changes. Subsegmental atelectasis in the lung bases. Slight patchy ate lectasis in the lingula. No acute-appearing pulmonary infiltrates. No focal pneumonia. No mediastinal or hilar lymphadenopathy. Small esophageal hiatal hernia. Adrenal glands are normal. N o axillary lymphadenopathy. Mild thoracic curve. Mild thoracic kyphosis. Hypertrophic changes thoraci c spine. Notified Sarah Olivas DO at 07/13/2019 4:[address]/CT chest wo con [id number] IMPRESSION: 1. Acute right posterior and lateral rib fractures involving the ninth and 10t h ribs. Comminuted ninth rib fracture with one shaft width displacement with a small right pleural effusion. No visualized pneumothorax. 2. Moderate chronic emphysematous changes with bibasilar atelectasis. 3. Subsegmental atelectasis in the lingula and right middle lobe. 4. No mediastinal or hilar lymphadenopathy. 5. Small esophageal hiatal hernia.
--- NOTE | 2019-07-13 15:13 | XR_ITS ---
WS: [id number] SHOULDER RIGHT TECHNIQUE: 3 views of the right shoulder CLINICAL INFORMATION: trauma COMPARISON: None. FINDINGS: Mild degenerative arthritis acromioclavicular joint. Degenerative narrowing glenohumeral joint. Acrom ion is normal in appearance. Normal glenoid. No evidence of acute fracture dislocation. 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 No acute fractures.
--- NOTE | 2019-07-13 16:05 | XR_ITS ---
WS: [id number] FOOT RIGHT TECHNIQUE: 3 views of the right foot CLINICAL INFORMATION: trauma COMPARISON: None. FINDINGS: No evidence of acute fracture or dislocation. Normal tarsal metatarsal alignment. Normal calcaneus. N ormal visualized talar dome. Prominent plantar calcaneal spurring. XR/XR foot RT min 3V* [id number] IMPRESSION: Prominent plantar calcaneal spurring. No acute fractures.
--- NOTE | 2019-07-13 16:22 | XR_ITS ---
WS: [id number] KNEE RIGHT TECHNIQUE: 2 views of the right knee CLINICAL INFORMATION: trauma COMPARISON: None. FINDINGS: Right knee is normal in appearance. No evidence of acute fracture dislocation. No significant effusio n. Slightly hypertrophic patella. No acute fractures. XR/XR knee RT 1-2V [id number] IMPRESSION: Hypertrophic patella. No acute fractures.
--- NOTE | 2019-07-13 17:07 | ECG_ITS ---
Measurements Intervals [place] Rate: 82 P: 13 NV: 152 QRS: 38 QRSD: 86 T: 45 QT: 356 QTc: 418 SINUS RHYTHM WITH SINUS ARRHYTHMIA INTERPRETATION BASED ON A DEFAULT AGE OF 40 YEARS Compared to ECG 07/08/2019 15:29:23 No significant changes Electronically Signed On 07-13-2019 18:35:40 CDT by Augustina Nelson M.D. [email or web address]
--- NOTE | 2019-07-13 17:38 | PC.NURSE ---
EKG performed and shown to ED physician.
[2019-07-13 17:57] LABS: Basophils % 0.1 %; Hematocrit 53.7 % (42.0-52.0); Lymphocytes # 0.3 10^3/uL (0.8-4.8); Lymphocytes % 1.6 %; Mean Corpuscular HGB Conc 31.7 g/dL (30.0-36.0); Mean Corpuscular Hemoglobin 29.8 pg (28.0-34.0); Monocytes # 0.4 10^3/uL (0.2-0.9); Monocytes % 2.3 %; Neutrophils # 15.6 10^3/uL (1.8-7.7); Neutrophils % 95.2 %; Nucleated Red Blood Cells % 0 %; Platelet Count 247 10^3/cmm (130-400); Red Blood Count 5.71 10^6/uL (4.1-5.3); Red Cell Distribution Width 13.5 % (12.1-15.1); White Blood Count 16.4 10^3/uL (4.0-10.0)
[2019-07-13 18:18] LABS: Alanine Aminotransferase 75 U/L (0-41); Albumin Level 4.4 g/dL (3.5-5.2); Alkaline Phosphatase 82 IU/L (40-130); Anion Gap 20.4 (5-19); Aspartate Amino Transferase 28 U/L (0-40); Blood Urea Nitrogen 22 mg/dL (8-23); Carbon Dioxide 24 mmol/L (22-29); Chloride 94 mmol/L (98-107); Globulin 2.6 g/dL (1.3-4.6); Glucose 230 mg/dL (65-115); Osmolality Calculated 282 mOsm/kg (285-295); Potassium 4.4 mmol/L (3.5-5.1); Sodium 134 mmol/L (136-145); Total Bilirubin 1.1 mg/dL (0.15-1.2)
[2019-07-13 18:19] LABS: Troponin(5th) Baseline 12 ng/mL (0-15)
[2019-07-13 19:29] LABS: Troponin 5 2HR 12.55 ng/mL (0-15); Troponin 5 2HR Delta 0.55 ABS# (0-10)
[2019-07-13 20:14] VITALS: BP 124/69; PULSE 85; RESP 16; O2SAT 98
== END 2019-07-13 20:13 | disposition short-term general hospital (02) ==
PROVIDERS: Emergency Medicine; Emergency Provider Emergency Medicine; Family Provider Family Medicine; PCP Physician Assistant
DX: S22.41XA Multiple fractures of ribs, right side, initial encounter for closed fracture (principal); M25.551 Pain in right hip; I63.9 Cerebral infarction, unspecified; E78.5 Hyperlipidemia, unspecified; I10 Essential (primary) hypertension; M31.6 Other giant cell arteritis; W19.XXXA Unspecified fall, initial encounter; Z87.891 Personal history of nicotine dependence; Z85.46 Personal history of malignant neoplasm of prostate
CPT/HCPCS: 12345; 36415; 70450; 71250; 73030; 73502; 73560; 73630; 80053; 84484; 85025; 93005; 99282; 99285